=== PATIENT | male | born 1960 | race Caucasian/White ===

== ENCOUNTER → 2017-04-23 | Outpatient (CLI) | payer MEDICARE, SELFPAY | PROVIDERS: Visit Provider Nurse Practitioner Family | DX: R50.9 Fever, unspecified (principal); R53.82 Chronic fatigue, unspecified; E11.9 Type 2 diabetes mellitus without complications; Z12.5 Encounter for screening for malignant neoplasm of prostate; R05 Cough | CPT/HCPCS: 36415; 80053; 81001; 82607; 84443; 85025; 87086; 87486; 87581; 87633; 87798; G0103 ==

== ENCOUNTER 2017-06-20 13:47 | Emergency (ER) | payer MEDICARE, SELFPAY ==
[2017-06-20 14:07] VITALS: BP 117/67; PULSE 67; RESP 18; TEMP 36.3; O2SAT 98; BMI 33.9
--- NOTE | 2017-06-20 14:25 | XR_ITS ---
XR knee RT 4V HISTORY: Posttraumatic pain, prior total knee replacement ITS.REASON: hx knee replacement, twisted yesterday, pain since ORDERING PHYSICIAN: Mallory York PATIENT AGE: 56 years FINDINGS: No previous exams are available at this institution. There is a total knee prosthesis present which is in good alignment. No acute fracture or dislocation is evident. There is increased density in the suprapatellar region consistent with knee joint effusion. IMPRESSION: Prior total knee replacement with knee joint effusion, no acute finding
--- NOTE | 2017-06-20 14:26 | HMH.EDUTC ---
[facility] [place] Impression: History of knee replacement procedure of right knee Right knee sprain Qualifiers: Encounter type: initial encounter Involved ligament of knee: unspecified ligament Qualified Code(s): S83.91XA - Sprain of unspecified site of right knee, initial encounter Abdominal pain Qualifiers: Abdominal location: epigastric Qualified Code(s): R10.13 - Epigastric pain Disposition: Home, Self-Care Condition on Discharge: Good Instructions: DI for Knee Sprain, How To Perform RICE (Rest, Ice, Compress, Elevate), How to Use a Knee Immobilizer Additional Instructions: * Your abdominal pain is concerning to me as we discussed. Remember the risks associated with the different possible causes. I encourage you to seek treatment for this pain as not getting further evaluation is against my medical advice. * weight bearing as tolerated but if painful, stay off it and use crutches * Rest * ice 15-20 mins 3-4 times a day * knee immobilizer for support and swelling unless in shower. Be sure not too tight but not too loose either * Elevate as discussed as much as possible to help reduce swelling and therefore, pain * naproxen every 12 hours as needed for pain and inflammation. If you need something more, you can take tylenol/lortab * No additional anti-inflammatories like motrin, aleve, advil with the above amount of ibuprofen. You CAN still take Tylenol every 4 hours as needed if you need something more for pain. Prescriptions: Naproxen 375 mg PO BID #28 tab Referrals: Josh Workman MD [Staff Physician] - (Immediately for new or worsening symptoms. Call Dr. Workman today. report hx of right knee replacement. Injured yesterday. Seen in [facility]. joint effusion and pain. Need follow up appointment.) Time of Disposition: 15:50 Medical Decision Making Vital Signs: 06/20/17 14:07 Temperature 97.4 F L Temperature Source Temporal Artery Scan Pulse Rate [Right Radial] 67 Respiratory Rate 18 Blood Pressure [Right Arm] 117/67 Blood Pressure Mean [Right Arm] 83 02 Sat by Pulse Oximetry 98 Oxygen Delivery Method Room Air - Radiology Data #1 Image(s): Knee Image Reviewed: Yes I have reviewed radiologist's interpretation prothesis in good alignment. prior total knee replacement with knee jiont effusion, no acute finding - Physician Consults Physician Consulted: MAXI Hansen Time: 15:45 Reason -: Pt condition Comment/Response: Discussed PMHx, HPI w/ knee, exam, xray. Suggest RICE, anti-inflammatories and follow up with ortho. Nothing further. - Porter Inquiry Pt receiving controlled substance: No - Reevaluation(s) Time: 14:25 Reevaluation #1: Discussed possible differentials w/ abdominal pain and need for abdominal pain evaluation in ER. Pt refusing abdominal pain workup other then exam. Aware exam alone is not sufficient. Pt wants to forget about it . Wants to focus on his right knee and not have any further workup of abdomen. I will just watch it and see what happens over the next few days . Discussed risks associated w/ differentials. Pt states he understands and will take my chances but still does not want workup/evaluation. [facility] [place] General Stated complaint: damaged artificial knee hermia mesh Time Seen by Provider: 06/20/17 14:15 Mode of Arrival: Family Vehicle Source of Information: Patient Limitations: No Limitations Description of Symptoms (Recalled from Triage Doc. by RN): PT STATES HE WAS LIFTING A TABLE LAST NIGHT AND TWISTED HIS RIGHT KNEE AND FELT A PULL WHERE HIS ABDOMINAL HERNIA MESH IS. HEENT Symptoms (Recalled from RN notes): No Resp Symptoms (Recalled from RN notes): No Skin Symptoms (Recalled from RN notes): No MS Symptoms (Recalled from RN notes): Yes (TWISTED RIGHT KNEE) Functional Status (Recalled from RN notes): NA - History of Present Illness Provider Complaint: c/o abdominal pain and right knee pain. Both started yesterday while lifting a table in his shop. Abdominal p
--- NOTE | 2017-06-20 14:32 | ED_ITS ---
[facility] [place] Clinical Impression: History of knee replacement procedure of right knee Right knee sprain Qualifiers: Encounter type: initial encounter Involved ligament of knee: unspecified ligament Qualified Code(s): S83.91XA - Sprain of unspecified site of right knee , initial encounter Abdominal pain Qualifiers: Abdominal location: epigastric Qualified Code(s): R10.13 - Epigastric pain Disposition: Home, Self-Care Condition on Discharge: Good Instructions: DI for Knee Sprain, How To Perform RICE (Rest, Ice, Compress, Elevate), How to Use a Knee Immobilizer Additional Instructions: * Your abdominal pain is concerning to me as we discussed. Remember the risks associated with the different possible causes. I encourage you to seek treatment for this pain as not getting further evaluation is against my medical advice. * weight bearing as tolerated but if painful, stay off it and use crutches * Rest * ice 15-20 mins 3-4 times a day * knee immobilizer for support and swelling unless in shower. Be sure not too tight but not too loose either * Elevate as discussed as much as possible to help reduce swelling and therefore , pain * naproxen every 12 hours as needed for pain and inflammation. If you need something more, you can take tylenol/lortab * No additional anti-inflammatories like motrin, aleve, advil with the above amount of ibuprofen. You CAN still take Tylenol every 4 hours as needed if you need something more for pain. Prescriptions: Naproxen 375 mg PO BID #28 tab Referrals: Josh Workman MD [Staff Physician] - (Immediately for new or worsening symptoms. Call Dr. Workman today. report hx of right knee replacement. Injured yesterday. Seen in [facility]. joint effusion and pain. Need follow up appointment.) Time of Disposition: 15:50 Medical Decision Making Vital Signs: 06/20/17 14:07 Temperature 97.4 F L Temperature Source Temporal Artery Scan Pulse Rate [Right Radial] 67 Respiratory Rate 18 Blood Pressure [Right Arm] 117/67 Blood Pressure Mean [Right Arm] 83 02 Sat by Pulse Oximetry 98 Oxygen Delivery Method Room Air - Radiology Data #1 Image(s): Knee Image Reviewed: Yes I have reviewed radiologist's interpretation prothesis in good alignment. prior total knee replacement with knee jiont effusion, no acute finding - Physician Consults Physician Consulted: MAXI Hansen Time: 15:45 Reason -: Pt condition Comment/Response: Discussed PMHx, HPI w/ knee, exam, xray. Suggest RICE, anti- inflammatories and follow up with ortho. Nothing further. - Porter Inquiry Pt receiving controlled substance: No - Reevaluation(s) Time: 14:25 Reevaluation #1: Discussed possible differentials w/ abdominal pain and need for abdominal pain evaluation in ER. Pt refusing abdominal pain workup other then exam. Aware exam alone is not sufficient. Pt wants to forget about it . Wants to focus on his right knee and not have any further workup of abdomen. I will just watch it and see what happens over the next few days . Discussed risks associated w/ differentials. Pt states he understands and will take my chances but still does not want workup/evaluation. [facility] [place] HPI - General Stated complaint: damaged artificial knee hermia mesh Time Seen by Provider: 06/20/17 14:15 Mode of Arrival: Family Vehicle Source of Information: Patient Limitations: No Limitations Description of Symptoms (Recalled from Triage Doc. by RN): PT STATES HE WAS LIFTING A TABLE LAST NIGHT AND TWISTED H
[2017-06-20 16:00] VITALS: BP 120/60; PULSE 65; RESP 18; TEMP 36.6; O2SAT 98
== END 2017-06-20 16:02 | disposition home or self-care (01) ==
PROVIDERS: Emergency Provider Nurse Practitioner Family
DX: S83.91XA Sprain of unspecified site of right knee, initial encounter (principal); Z96.651 Presence of right artificial knee joint; I10 Essential (primary) hypertension; E11.9 Type 2 diabetes mellitus without complications; R10.13 Epigastric pain; X50.1XXA Overexertion from prolonged static or awkward postures, initial encounter; Y92.009 Unspecified place in unspecified non-institutional (private) residence as the place of occurrence of the external cause
CPT/HCPCS: G0463; 73564; 99202

== ENCOUNTER → 2017-11-19 16:22 | Outpatient (CLI) | payer MEDICARE, SELFPAY ==
--- NOTE | 2017-11-19 16:28 | XR_ITS ---
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 The humeral head rides somewhat high in the glenoid and is a lateral downsloping acromion process both findings suggesting predisposition to impingement syndrome. There are no soft tissue calcifications. IMPRESSION: Possible impingement syndrome, no other significant abdomen I noted
--- NOTE | 2017-11-19 16:28 | XR_ITS ---
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 No lytic or blastic change. There is normal mineralization.. The joint spaces are well-preserved. There is deformity of the proximal phalanx of little finger secondary to old healed fracture. There is minor osteoarthritic changes of the DIP joints of the index finger and middle finger. There are no foreign bodies. IMPRESSION: Negative, no acute finding
--- NOTE | 2017-11-19 16:28 | XR_ITS ---
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 Humeral head rides somewhat high in the glenoid and is a lateral downsloping acromion process and these 2 findings could predispose to impingement syndrome. There are no soft tissue calcifications. IMPRESSION: Findings suggesting a predisposition to impingement syndrome
--- NOTE | 2017-11-19 16:28 | XR_ITS ---
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 No lytic or blastic change. There is normal mineralization.. The joint spaces are well-preserved. Minimal osteophytic spurring is seen in the PIP joint of the little finger. There is metallic foreign body adjacent to the proximal phalanx of the index finger. IMPRESSION: Negative, no acute finding
--- NOTE | 2017-11-19 16:28 | XR_ITS ---
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 C1-C6 are visualized on lateral projection however C7 appears normal on the oblique views. Oblique films show no significant neural foraminal narrowing on either side. The prevertebral soft tissues are normal and the odontoid is normal. IMPRESSION: No acute finding and no significant degenerative change
--- NOTE | 2017-11-19 16:28 | XR_ITS ---
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 No fracture nor dislocation. Normal carpal relationships. Joint spaces maintained Minimal Subchondral cystic area at tip of radial styloid notedl 4.5 mm The soft tissues about the wrist appear normal The marked deformity proximal phalanx fifth finger from old fracture again noted as discussed on previous right hand study. IMPRESSION: Right wrist intact no fracture nor dislocation. Minor observations about ======== LEFT WRIST 3 view Left wrist intact with normal carpal relationships. Bones well mineralized. No prominent erosive changes. Joint spaces are fairly well-maintained With Detailed review I would I would note that there is slight narrowing sclerosis at the capitate- lunate joint. Possibly some borderline narrowing at the lunate-scaphoid joint. With this Note 2 very tiny subchondral cystic features at the proximal pole of the navicular on the frontal projection. There is upper normal density at the proximal pole the navicular, minor sclerosis which may be related to early degenerative changes as I see no evidence of old navicular fracture on these images. The distal radius and ulna unremarkable intact. Fat planes about the wrist intact. Only scant if any degenerative changes at first carpal metacarpal joint questioned IMPRESSION left wrist, intact. No acute findings Mild degenerative changes left wrist Suggestion of slight narrowing and sclerosis at capitate and lunate articulation. Borderline/slight narrowing at the scaphoid-lunate articulation mild sclerosis and tubes tiny subchondral cyst at proximal pole of the kidney may be associated with these are early changes.,-As I see no definitive evidence prior navicular fracture. Clinical correlation required
== END ==
PROVIDERS: PCP Family Medicine; Visit Provider Nurse Practitioner Family
DX: M25.511 Pain in right shoulder (principal); M25.512 Pain in left shoulder; M25.532 Pain in left wrist; M25.531 Pain in right wrist; M79.642 Pain in left hand; M79.641 Pain in right hand
CPT/HCPCS: 72050; 73030; 73110; 73130

== ENCOUNTER 2019-11-04 15:54 | Emergency (ER) | payer MEDICARE, SELFPAY ==
--- NOTE | 2019-11-04 16:25 | XR_ITS ---
PROCEDURE: XR WRIST RT MIN 3V CLINICAL INDICATION: INJURY Pain COMPARISON: WRISTCMLT XR wrist LT min 3V from 11/19/2017 WRISTCMRT XR wrist RT min 3V from 11/19/2017 FINDINGS: There is a small subchondral cyst at the radial styloid process measuring 4 mm. No fracture or dislocation. No significant degenerative change. IMPRESSION: No acute findings. Dictated by: Samuel Ríos MD 11/04/2019 16:54 Electronically signed by Samuel Ríos MD in [place] 11/04/2019 16:54
--- NOTE | 2019-11-04 16:25 | XR_ITS ---
PROCEDURE: XR WRIST LT MIN 3V CLINICAL INDICATION: INJURY Posttraumatic pain COMPARISON: WRISTCMLT XR wrist LT min 3V from 11/19/2017 WRISTCMRT XR wrist RT min 3V from 11/19/2017 XR WRIST RT MIN 3V from 11/04/2019 FINDINGS: No fracture or dislocation. There is faint calcification at the mid and dorsal aspect of the wrist nonspecific. IMPRESSION: No acute findings. Dictated by: Samuel Ríos MD 11/04/2019 16:53 Electronically signed by Samuel Ríos MD in [place] 11/04/2019 16:53
--- NOTE | 2019-11-04 16:25 | XR_ITS ---
PROCEDURE: XR SHOULDER LT MIN 2V CLINICAL INDICATION: INJURY Posttraumatic pain COMPARISON: SHOU3R [id number] VIEWS from 02/13/2014 SHOULDCMLT XR shoulder LT min 2V from 11/19/2017 SHOULDCMRT XR shoulder RT min 2V from 11/19/2017 FINDINGS: There are mild osteoarthritic changes of the acromioclavicular joint. The joint has an unremarkable appearance. No acute fracture or dislocation. IMPRESSION: Mild osteoarthritis of AC joint otherwise negative. Dictated by: Samuel Ríos MD 11/04/2019 16:47 Electronically signed by Samuel Ríos MD in [place] 11/04/2019 16:47
[2019-11-04 16:27] VITALS: BP 138/78; PULSE 74; RESP 16; TEMP 36.8; O2SAT 98; BMI 32.3
--- NOTE | 2019-11-04 16:43 | HMH.EDUTC ---
[facility] [place] Clinical Impression: Bilateral wrist pain Left shoulder pain Qualifiers: Chronicity: unspecified Qualified Code(s): M25.512 - Pain in left shoulder Disposition: Home, Self-Care Condition on Discharge: Good Instructions: DI for Shoulder Pain, DI for Wrist Pain Additional Instructions: Rest the extremity, Elevate the extremity as tolerated while you are resting. Take ibuprofen for pain. Follow up with Dr. Kevin. I put in a referral but you need to call her office and schedule an appointment. Follow up with your regular doctor. GO TO THE ER FOR ANY WORSENING SYMPTOMS Prescriptions: Ibuprofen [Ibuprofen 600mg Tablet] 600 mg PO Q6HP PRN #30 tab PRN Reason: Mild Pain Transmission Status: Received by [id number] Referrals: Richi Damon [Primary Care Provider] - Azucena Kevin MD [Physician] - Time of Disposition: 17:14 Medical Decision Making - Medical Records Medical records reviewed: No: I reviewed the patient's medical records. - Porter Inquiry Pt receiving controlled substance: No Vital Signs: 11/04/19 16:27 11/04/19 17:22 Temperature 98.3 F 98.2 F Temperature Source Oral Oral Pulse Rate 70 Pulse Rate [Right Brachial] 74 Respiratory Rate 16 16 Blood Pressure 140/70 Blood Pressure [Right Arm] 138/78 Blood Pressure Mean [Right Arm] 98 Blood Pressure Source Automatic Cuff Blood Pressure Source [Right Arm] Automatic Cuff Blood Pressure Position Sitting Blood Pressure Position [Right Arm] Sitting 02 Sat by Pulse Oximetry 98 Oxygen Delivery Method Room Air Room Air - Radiology Data #1 Image(s): Wrist Image Reviewed: Yes I reviewed the patient's radiology image, Yes I have reviewed radiologist's interpretation Preliminary Findings: No Fracture Seen PROCEDURE: XR WRIST RT MIN 3V CLINICAL INDICATION: INJURY Pain COMPARISON: WRISTCMLT XR wrist LT min 3V from 11/19/2017 WRISTCMRT XR wrist RT min 3V from 11/19/2017 FINDINGS: There is a small subchondral cyst at the radial styloid process measuring 4 mm. No fracture or dislocation. No significant degenerative change. IMPRESSION: No acute findings. Dictated by: Samuel Ríos MD 11/04/2019 16:54 Electronically signed by Samuel Ríos MD in [place] 11/04/2019 16:54 #2 Image(s): Shoulder Image Reviewed: Yes I reviewed the patient's radiology image, Yes I have reviewed radiologist's interpretation Preliminary Findings: No Fracture Seen PROCEDURE: XR SHOULDER LT MIN 2V CLINICAL INDICATION: INJURY Posttraumatic pain COMPARISON: SHOU3R [id number] VIEWS from 02/13/2014 SHOULDCMLT XR shoulder LT min 2V from 11/19/2017 SHOULDCMRT XR shoulder RT min 2V from 11/19/2017 FINDINGS: There are mild osteoarthritic changes of the acromioclavicular joint. The joint has an unremarkable appearance. No acute fracture or dislocation. IMPRESSION: Mild osteoarthritis of AC joint otherwise negative. Dictated by: Samuel Ríos MD 11/04/2019 16:47 Electronically signed by Samuel Ríos MD in [place] 11/04/2019 16:47 #3 Image(s): Wrist Image Reviewed: Yes I reviewed the patient's radiology image, Yes I have reviewed radiologist's interpretation Preliminary Findings: No Fracture Seen PROCEDURE: XR WRIST RT MIN 3V CLINICAL INDICATION: INJURY Pain COMPARISON: WRISTCMLT XR wrist LT min 3V from 11/19/2017 WRISTCMRT XR wrist RT min 3V from 11/19/2017 FINDINGS: There is a small subchondral cyst at the radial styloid process measuring 4 mm. No fracture or dislocation. No significant degenerative change. IMPRESSION: No acute findings. Dictated by: Samuel Ríos MD 11/04/2019 16:54 Electronically signed by Samuel Ríos MD in [place] 11/04/2019 16:54 [facility] [place] HPI - General Stated complaint: AO in july injured Both wrist,L shoulder Time Seen by Provider: 11/04/19 16:43 Mode of Arrival: Ambulatory Source of Information: Patient Limit
[2019-11-04 17:22] VITALS: BP 140/70; PULSE 70; RESP 16; TEMP 36.8; O2SAT 98
== END 2019-11-04 17:23 | disposition home or self-care (01) ==
PROVIDERS: Emergency Provider Nurse Practitioner Family; PCP Family Medicine
DX: M25.531 Pain in right wrist (principal); M25.532 Pain in left wrist; M25.512 Pain in left shoulder; E11.9 Type 2 diabetes mellitus without complications; I10 Essential (primary) hypertension; K21.9 Gastro-esophageal reflux disease without esophagitis; E03.9 Hypothyroidism, unspecified; Z79.899 Other long term (current) drug therapy
CPT/HCPCS: G0463; 73030; 73110; 99201

== ENCOUNTER → 2019-11-24 07:29 | Outpatient (CLI) | payer MEDICARE, SELFPAY ==
[2019-11-24 09:11] LABS: Alanine Aminotransferase 17 U/L (12-78); Albumin/Globulin Ratio 1.8 (1.1-1.8); Alkaline Phosphatase 77 U/L (38-126); Anion Gap 17.3 mEq/L (5-15); Aspartate Amino Transferase 17 U/L (17-59); Bilirubin,Total 0.6 mg/dl (0.2-1.3); Blood Urea Nitrogen 15 mg/dl (9-20); Calcium 9.8 mg/dl (8.4-10.2); Carbon Dioxide 29 mmol/L (22.0-30.0); Chloride 95 mmol/L (98-107); Chol/HDL Ratio 5.1 (1-3.5); Cholesterol 180 mg/dl (140-200); Estimated Glomerular Filt Rate 69 ml/min (>60); GFR (African American) 83 ML/MIN (>60); Globulin 2.2 g/dL (1.3-3.2); Glucose 324 mg/dl (74-100); HDL Cholesterol 35 mg/dl (40-60); Potassium 4.3 mmoL/L (3.5-5.1); Sodium 137 mmol/L (136-145); Total Protein,Serum 6.2 g/dl (6.3-8.2); Triglycerides 258 mg/dl (30-150); VLDL Cholesterol 52 mg/dL (0-40)
[2019-11-24 09:22] LABS: Direct LDL Cholesterol 96.84 mg/dL (100-129)
[2019-11-24 09:29] LABS: T4 (Thyroxine) 11.8 ug/dl (5.53-11.0); Triiodothryronine (T3) Uptake 34 % (23.5-40.5)
[2019-11-24 09:37] LABS: Hemoglobin A1C > 14.0 % (4.0-6.0)
[2019-11-24 09:42] LABS: Prostate Specific Ag Screen 0.2 ng/ml (0.0-4.0)
[2019-11-24 09:43] LABS: Thyroid Stimulating Hormone 0.99 uIU/mL (0.465-4.68)
== END ==
PROVIDERS: Visit Provider Family Medicine
DX: I25.10 Atherosclerotic heart disease of native coronary artery without angina pectoris (principal); R41.3 Other amnesia; R35.1 Nocturia; E11.9 Type 2 diabetes mellitus without complications; Z79.4 Long term (current) use of insulin; Z12.5 Encounter for screening for malignant neoplasm of prostate
CPT/HCPCS: 36415; 80053; 80061; 83036; 84436; 84443; 84479; G0103

== ENCOUNTER → 2019-12-01 07:54 | Outpatient (CLI) | payer MEDICARE, SELFPAY ==
--- NOTE | 2019-12-01 07:54 | MR_ITS ---
PROCEDURE: MR HEAD/BRAIN WO CON CLINICAL INDICATION: memory loss Memory loss, headache, dizziness, and blurred vision x3-4months. No prior. COMPARISON: No exams were available for comparison TECHNIQUE: Routine multiplanar multi echo sequences are performed without gadolinium enhancement. FINDINGS: No midline shift, mass effect, intracranial hemorrhage, or hydrocephalus is evident. Diffusion images show no evidence of acute infarction. There is mild generalized atrophy with scattered periventricular and subcortical T2 white matter hyperintensities consistent with ischemic gliotic change from small vessel disease. There is a cystic area of encephalomalacia in the right putamen anteriorly measuring 11 x 6 mm consistent with an old lacunar infarction. The cerebellopontine angle, cerebellum, and brainstem have an unremarkable appearance. Minimal mucosal thickening involves the maxillary and ethmoid sinuses. The pituitary, optic chiasm, corpus callosum, and craniocervical junction have an unremarkable appearance. There is a small amount of fluid within the right mastoid sinus. IMPRESSION: 1. No acute intracranial findings. 2. 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
--- NOTE | 2019-12-01 08:02 | XR_ITS ---
PROCEDURE: XR ORBIT BILATERAL MIN 4V CLINICAL INDICATION: RULE OUT METAL FOREIGN BODY FOR MRI COMPARISON: No exams were available for comparison TECHNIQUE: AP views are obtained of the orbits with the patient looking up and down. FINDINGS: No radio opaque foreign bodies evident. IMPRESSION: No radio opaque orbital foreign body identified. Dictated b Samuel Ríos MD 12/01/2019 16:01 Samuel Ríos MD in [place] 12/01/2019 16:01
== END ==
PROVIDERS: PCP Family Medicine; Visit Provider Specialist
DX: G93.40 Encephalopathy, unspecified (principal); R41.3 Other amnesia; H05.53 Retained (old) foreign body following penetrating wound of bilateral orbits
CPT/HCPCS: 70200; 70551

== ENCOUNTER 2020-12-13 20:02 | Emergency (ER) | payer MEDICARE, SELFPAY ==
[2020-12-13 20:04] VITALS: BP 127/82; PULSE 105; RESP 18; TEMP 37.1; O2SAT 97; BMI 30.2
[2020-12-13 20:30] VITALS: BP 127/82; PULSE 96; O2SAT 97
--- NOTE | 2020-12-13 20:51 | XR_ITS ---
PROCEDURE INFORMATION: Exam: XR Chest Exam date and time: 12/13/2020 8:51 PM Age: 60 years old Clinical indication: Cough TECHNIQUE: Imaging protocol: XR of the chest. Views: 2 views. COMPARISON: CR XR SHOULDER LT MIN 2V 11/04/2019 4:30 PM FINDINGS: Lungs: No consolidation. Pleural spaces: Unremarkable. No pleural effusion. No pneumothorax. Heart/Mediastinum: Unremarkable. No cardiomegaly. 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 Bones/joints: Degenerative changes of the shoulders. IMPRESSION: Chronic changes without acute process.
[2020-12-13 20:55] VITALS: BP 133/75; PULSE 95; O2SAT 97
--- NOTE | 2020-12-13 20:57 | ECG_ITS ---
APPROVED REPORT Exam: Resting ECG HR:97 bpm ECG Measurements Heart Rate 97 AXES ME 142 P 61 QRSd 80 QRS 94 QT 360 T 103 QTc 457 Conclusion Normal sinus rhythm Rightward axis Borderline ECG Electronically signed by : Dony Bateman MD 12/14/2020 11:44:22
[2020-12-13 21:00] VITALS: BP 111/76; PULSE 92; O2SAT 95
[2020-12-13 21:01] LABS: Influenza A, PCR Not Detected (NotDetected); Influenza B, PCR Not Detected (NotDetected)
[2020-12-13 21:09] LABS: Alanine Aminotransferase 21 U/L (12-78); Albumin/Globulin Ratio 1.6 (1.1-1.8); Alkaline Phosphatase 62 U/L (38-126); Anion Gap 12.7 mEq/L (5-15); Aspartate Amino Transferase 26 U/L (17-59); Bilirubin,Total 0.7 mg/dl (0.2-1.3); Blood Urea Nitrogen 14 mg/dl (9-20); Calcium 8.5 mg/dl (8.4-10.2); Carbon Dioxide 28 mmol/L (22.0-30.0); Chloride 95 mmol/L (98-107); Creatinine Clearance Estimated 86 mL/min (50-200); Estimated Glomerular Filt Rate 68 ml/min (>60); GFR (African American) 83 ML/MIN (>60); Globulin 2.5 g/dL (1.3-3.2); Glucose 349 mg/dl (74-100); Potassium 3.7 mmoL/L (3.5-5.1); Sodium 132 mmol/L (136-145); Total Protein,Serum 6.5 g/dl (6.3-8.2)
[2020-12-13 21:12] LABS: Basophils % 0.8 % (0.1-2.0); Eosinophils % 0.6 % (0.1-12.0); Hemoglobin 14.7 g/dL (14.1-18.0); Lymphocytes # 0.8 K/mm3 (0.7-4.5); Lymphocytes % 23.7 % (10-50); Mean Corpuscular HGB Conc 35.1 g/dL (31.8-35.4); Mean Corpuscular Hemoglobin 27.6 pg (27.0-31.2); Mean Corpuscular Volume 78.8 fl (80-94); Mean Platelet Volume 8.4 fl (7.4-10.4); Monocytes # 0.2 K/mm3 (0.1-1.0); Monocytes % 5.5 % (1.7-9.3); Neutrophils # 2.4 K/mm3 (1.8-7.8); Neutrophils % 69.4 % (37.0-80.0); Platelet Count 132 K/mm3 (142-424); Red Blood Count 5.33 M/mm3 (4.60-6.20); Red Cell Distribution Width 13.4 % (11.5-17.5); White Blood Count 3.4 K/mm3 (4.8-10.8)
[2020-12-13 21:14] LABS: C-Reactive Protein 24.2 mg/L (0-4)
[2020-12-13 21:27] LABS: Troponin I < 0.01 ng/ml (0.00-0.034)
[2020-12-13 21:29] LABS: Procalcitonin 0.066 ng/mL (0.0-2.0)
[2020-12-13 21:42] LABS: Coronavirus 19, PCR Detected (NotDetected)
--- NOTE | 2020-12-13 21:53 | HMH.EDWEAK ---
ED Disposition Clinical Impression: COVID-19 Disposition: Home, Self-Care Condition on Discharge: Good Instructions: DI for COVID-19 (Suspected or Confirmed ), Preventing the Spread of Coronavirus Discharge Instructions Additional Instructions: call pcp in am and fluids Referrals: Yuriy Damon MD [Primary Care Provider] - - Critical Care Critical Care Time: No Attestation: On 12/13/20, the high probability of a clinically significant, sudden or life threatening deterioration of the following system(s) required my full and direct attention, intervention and personal management. The time I documented below is in addition to time spent performing reported procedures but includes the following listed in this critical care notation. Medical Decision Making - Medical Records Medical records reviewed: Yes: I reviewed the patient's medical records. - Porter Inquiry Pt receiving controlled substance: No Vital Signs: 12/13/20 20:04 12/13/20 20:30 12/13/20 20:55 Temperature 98.8 F Temperature Source Oral Pulse Rate 96 H 95 H Pulse Rate [Right] 105 H Respiratory Rate 18 Blood Pressure 127/82 133/75 Blood Pressure [Right Arm] 127/82 Blood Pressure Mean 96 91 Blood Pressure Mean [Right Arm] 97 02 Sat by Pulse Oximetry 97 97 97 12/13/20 21:00 Temperature Temperature Source Pulse Rate 92 H Pulse Rate [Right] Respiratory Rate Blood Pressure 111/76 Blood Pressure [Right Arm] Blood Pressure Mean 86 Blood Pressure Mean [Right Arm] 02 Sat by Pulse Oximetry 95 - Lab Data Lab results reviewed: Yes: I reviewed the patient's lab results. Lab Results 12/13/20 20:45: SARS-CoV-2 (PCR) Detected A, Influenza A Untype (PCR) Not detected, Influenza Type B (PCR) Not detected 12/13/20 20:45: Procalcitonin 0.066 12/13/20 20:55: WBC 3.4 L, RBC 5.33, Hgb 14.7, Hct 42.0, MCV 78.8 L, MCH 27.6, MCHC 35.1, RDW 13.4, Plt Count 132 L, MPV 8.4, Neut % (Auto) 69.4, Lymph % (Auto) 23.7, [place] % (Auto) 5.5, Eos % (Auto) 0.6, Baso % (Auto) 0.8, Neut # (Auto) 2.4, Lymph # (Auto) 0.8, [place] # (Auto) 0.2, Eos # (Auto) 0.0, Baso # (Auto) 0.0, ESR 55 H 12/13/20 20:55: Sodium 132 L, Potassium 3.7, Chloride 95 L, Carbon Dioxide 28, Anion Gap 12.7, BUN 14, Creatinine 1.10, Estimated Creat Clear 86, Estimated GFR 68, Est GFR ( Amer) 83, Glucose 349 H, Calcium 8.5, Total Bilirubin 0.7, AST 26, ALT 21, Alkaline Phosphatase 62, Troponin I < 0.01, C-Reactive Protein 24.2 H, Total Protein 6.5, Albumin 4.0, Globulin 2.5, Albumin/Globulin Ratio 1.6 Result diagrams: 12/13/20 20:55 12/13/20 20:55 Orders (Tests/Meds): ED MEDICATIONS Generic Name Dose Route Start Last Admin Trade Name Freq PRN Reason Stop Dose Admin Sodium Chloride 1,000 mls @ 999 mls/hr 12/13/20 21:00 12/13/20 20:59 Sod Chlor 0.9% 1000ml Bag IV 12/13/20 22:00 999 mls/hr .Q1H1M AGUSTIN Administration Discontinued Medications Generic Name Dose Route Start Last Admin Trade Name Freq PRN Reason Stop Dose Admin Ondansetron HCl 4 mg 12/13/20 20:53 12/13/20 20:59 Ondansetron 4mg/2ml Vial IV 12/13/20 20:54 4 mg ONCE ONE Administration ORDERS Category Date Time Status Troponin I Q3H Lab 12/13/20 23:52 Ordered Troponin I Q3H Lab 12/14/20 02:52 Ordered - Radiology Data #1 Image(s): Chest Image Reviewed: Yes I reviewed the patient's radiology image Preliminary Findings: Normal/NAD - ECG Data Tracing #1 Normal Sinus Rhythm: Yes Ischemic changes: non-specific ST-T wave changes Medical Decision Narrative: has covid-19 and was asked to call pcp in am Weakness HPI - General Chief complaint: Weakness Stated complaint: fever,sleeping alot,not eating Time Seen by Provider: 12/13/20 21:53 Mode of Arrival: Ambulatory Source of Information: Patient, Medical Record Limitations: No Limitations Description of Symptoms (Recalled from ER Triage Doc. by RN): pt c/o coughing,n/v/d,fever,chills,body aches since
[2020-12-13 21:54] LABS: Erythrocyte Sedimentation Rate 55 mm/hr (0-20)
[2020-12-13 22:34] VITALS: BP 111/76; PULSE 92; RESP 18; TEMP 37.1; O2SAT 95
== END 2020-12-13 22:36 | disposition home or self-care (01) ==
PROVIDERS: Emergency Provider Emergency Medicine; PCP Family Medicine
DX: U07.1 COVID-19 (principal); E11.9 Type 2 diabetes mellitus without complications; I10 Essential (primary) hypertension; K21.9 Gastro-esophageal reflux disease without esophagitis; E03.9 Hypothyroidism, unspecified; Z79.899 Other long term (current) drug therapy
CPT/HCPCS: 71046; 80053; 84145; 84484; 85025; 85651; 86140; 93005; 96365; 96375; 99283; J2405; U0003

== ENCOUNTER → 2021-12-04 06:43 | Outpatient (CLI) | payer MEDICARE, SELFPAY ==
[2021-12-04 18:03] LABS: Basophils # 0.1 K/mm3 (0-0.2); Basophils % 1.3 % (0.1-2.0); Eosinophils # 0.1 K/mm3 (0.0-0.4); Eosinophils % 1.5 % (0.1-12.0); Hematocrit 51.8 % (42.0-52.0); Hemoglobin 16.7 g/dL (14.1-18.0); Lymphocytes % 23.2 % (10-50); Mean Corpuscular HGB Conc 32.2 g/dL (31.8-35.4); Mean Corpuscular Hemoglobin 28.1 pg (27.0-31.2); Mean Corpuscular Volume 87.2 fl (80-94); Mean Platelet Volume 9.2 fl (7.4-10.4); Monocytes # 0.5 K/mm3 (0.1-1.0); Monocytes % 5.2 % (1.7-9.3); Neutrophils # 5.9 K/mm3 (1.8-7.8); Neutrophils % 68.7 % (37.0-80.0); Platelet Count 314 K/mm3 (142-424); Red Blood Count 5.95 M/mm3 (4.60-6.20); Red Cell Distribution Width 13.4 % (11.5-17.5); White Blood Count 8.6 K/mm3 (4.8-10.8)
[2021-12-04 18:14] LABS: Alanine Aminotransferase 21 U/L (12-78); Albumin Level 4.3 g/dl (3.5-5.0); Albumin/Globulin Ratio 1.7 (1.1-1.8); Alkaline Phosphatase 91 U/L (38-126); Aspartate Amino Transferase 19 U/L (17-59); Bilirubin,Total 0.9 mg/dl (0.2-1.3); Blood Urea Nitrogen 12 mg/dl (9-20); Calcium 10.2 mg/dl (8.4-10.2); Carbon Dioxide 25 mmol/L (22.0-30.0); Chloride 100 mmol/L (98-107); Chol/HDL Ratio 7.3 (1-3.5); Cholesterol 276 mg/dl (140-200); Estimated Glomerular Filt Rate 76 ml/min (>60); GFR (African American) 92 ML/MIN (>60); Globulin 2.5 g/dL (1.3-3.2); HDL Cholesterol 38 mg/dl (40-60); Sodium 134 mmol/L (136-145); Total Protein,Serum 6.8 g/dl (6.3-8.2); Triglycerides 274 mg/dl (30-150); VLDL Cholesterol 55 mg/dL (0-40)
[2021-12-04 18:45] LABS: Thyroid Stimulating Hormone 5.58 uIU/mL (0.465-4.68)
[2021-12-04 23:29] LABS: Hemoglobin A1C > 14.0 % (4.0-6.0)
[2021-12-05 08:30] LABS: Glucose 457 mg/dl (74-100)
[2021-12-06 22:16] LABS: Direct LDL Cholesterol 201 mg/dL (100-129)
== END ==
PROVIDERS: PCP Family Medicine; Visit Provider Family Medicine
DX: F32.A Depression, unspecified (principal); E11.9 Type 2 diabetes mellitus without complications; I10 Essential (primary) hypertension; Z79.84 Long term (current) use of oral hypoglycemic drugs
CPT/HCPCS: 80053; 80061; 83036; 84443; 85025

== ENCOUNTER → 2022-04-25 10:15 | Outpatient (CLI) | payer MEDICARE, SELFPAY ==
[2022-04-25 18:31] LABS: Alanine Aminotransferase 23 U/L (12-78); Albumin Level 4.1 g/dl (3.5-5.0); Alkaline Phosphatase 68 U/L (38-126); Anion Gap 15.3 mEq/L (5-15); Aspartate Amino Transferase 21 U/L (17-59); Bilirubin,Total 1.1 mg/dl (0.2-1.3); Blood Urea Nitrogen 22 mg/dl (9-20); Calcium 9.6 mg/dl (8.4-10.2); Carbon Dioxide 24 mmol/L (22.0-30.0); Chloride 94 mmol/L (98-107); Estimated Glomerular Filt Rate 68 ml/min (>60); GFR (African American) 82 ML/MIN (>60); Globulin 2.1 g/dL (1.3-3.2); Hemoglobin A1C 11.4 % (4.0-6.0); Potassium 4.3 mmoL/L (3.5-5.1); Sodium 129 mmol/L (136-145); Total Protein,Serum 6.2 g/dl (6.3-8.2)
[2022-04-25 18:39] LABS: Creatinine,Urine Random 108 mg/dL (Not Estab.)
[2022-04-25 18:45] LABS: Microalbumin/Creatinine Ratio 14.9
[2022-04-25 18:48] LABS: Free T4 (Free Thyroxine) 1.02 ng/dl (0.78-2.19)
[2022-04-25 18:49] LABS: 25-OH Vitamin D, Total 18.3 ng/mL (30-100)
[2022-04-25 19:02] LABS: Thyroid Stimulating Hormone 2.38 uIU/mL (0.465-4.68)
[2022-04-25 19:38] LABS: Glucose 611 mg/dl (74-100)
[2022-04-25 20:29] LABS: Basophils # 0.1 K/mm3 (0-0.2); Eosinophils # 0.1 K/mm3 (0.0-0.4); Hematocrit 47.1 % (42.0-52.0); Hemoglobin 15.5 g/dL (14.1-18.0); Lymphocytes # 2.1 K/mm3 (0.7-4.5); Lymphocytes % 26.1 % (10-50); Mean Corpuscular HGB Conc 32.9 g/dL (31.8-35.4); Mean Corpuscular Hemoglobin 28.7 pg (27.0-31.2); Mean Corpuscular Volume 87.1 fl (80-94); Mean Platelet Volume 9.3 fl (7.4-10.4); Monocytes # 0.4 K/mm3 (0.1-1.0); Monocytes % 4.7 % (1.7-9.3); Neutrophils # 5.5 K/mm3 (1.8-7.8); Neutrophils % 67.2 % (37.0-80.0); Platelet Count 276 K/mm3 (142-424); Red Blood Count 5.41 M/mm3 (4.60-6.20); Red Cell Distribution Width 13.9 % (11.5-17.5); White Blood Count 8.1 K/mm3 (4.8-10.8)
== END ==
PROVIDERS: PCP Family Medicine; Visit Provider Family Medicine
DX: E11.9 Type 2 diabetes mellitus without complications (principal); I10 Essential (primary) hypertension; R53.83 Other fatigue; E55.9 Vitamin D deficiency, unspecified; Z79.4 Long term (current) use of insulin
CPT/HCPCS: 80053; 82043; 82306; 82570; 83036; 84439; 84443; 85025

== ENCOUNTER → 2022-05-01 08:36 | Outpatient (CLI) | payer MEDICARE, SELFPAY ==
--- NOTE | 2022-05-01 08:36 | MR_ITS ---
FINAL REPORT TECHNIQUE: Multiplanar MR, without and with gadolinium enhancement CLINICAL HISTORY: R/O stroke, ams, dizziness 16ml prohance injected COMPARISON: 12/01/2019 FINDINGS: Diffusion sequences show no signal abnormality to indicate acute infarct. Redemonstrated is moderate periventricular chronic microvascular changes with a chronic lacunar infarct in the anterior right basal ganglia. No mass, hemorrhage or edema is seen. Ventricles are normal. Major vascular flow voids are intact. Following contrast administration, no mass or abnormal enhancement is seen. IMPRESSION: Periventricular chronic microvascular changes with a chronic lacunar infarct. Reviewed, Interpreted and Dictated by Lissette Guillen MD Transcribed by Kathy Ojeda Authenticated and [facility]
== END ==
PROVIDERS: PCP Family Medicine; Visit Provider Family Medicine
DX: R41.82 Altered mental status, unspecified (principal)
CPT/HCPCS: 70553; A9576

== ENCOUNTER → 2022-10-13 09:03 | Outpatient (CLI) | payer MEDICARE, SELFPAY ==
[2022-10-12 16:14] LABS: Blood Urea Nitrogen 12 mg/dl (9-20); Calcium 9.1 mg/dl (8.4-10.2); Carbon Dioxide 27 mmol/L (22.0-30.0); Chloride 99 mmol/L (98-107); Estimated Glomerular Filt Rate 86 ml/min (>60); GFR (African American) 103 ML/MIN (>60); Glucose 270 mg/dl (74-100); Sodium 136 mmol/L (136-145)
[2022-10-12 16:21] LABS: Hemoglobin A1C 11.3 % (4.0-6.0)
[2022-10-12 16:24] LABS: Creatinine,Urine Random 169 mg/dL (Not Estab.)
[2022-10-12 16:31] LABS: Microalbumin/Creatinine Ratio 9.8
== END ==
PROVIDERS: PCP Family Medicine; Visit Provider Family Medicine
DX: E11.9 Type 2 diabetes mellitus without complications (principal); Z79.4 Long term (current) use of insulin
CPT/HCPCS: 80048; 82043; 82570; 83036

== ENCOUNTER → 2022-11-29 08:26 | Outpatient (POV) | payer MEDICARE, SELFPAY | PROVIDERS: Visit Provider Specialist/Technologist | DX: Z00.00 Encounter for general adult medical examination without abnormal findings (principal) ==

== ENCOUNTER → 2022-12-26 23:18 | Outpatient (CLI) | payer MEDICARE, SELFPAY ==
[2022-12-26 16:50] LABS: Basophils % 0.3 % (0.1-2.0); Eosinophils % 0.4 % (0.1-12.0); Hemoglobin 16.1 g/dL (14.1-18.0); Lymphocytes # 1.7 K/mm3 (0.7-4.5); Lymphocytes % 13.8 % (10-50); Mean Corpuscular HGB Conc 32.8 g/dL (31.8-35.4); Mean Corpuscular Hemoglobin 27.8 pg (27.0-31.2); Mean Corpuscular Volume 84.7 fl (80-94); Mean Platelet Volume 9.1 fl (7.4-10.4); Monocytes # 0.6 K/mm3 (0.1-1.0); Monocytes % 4.6 % (1.7-9.3); Neutrophils % 80.9 % (37.0-80.0); Platelet Count 234 K/mm3 (142-424); Red Blood Count 5.78 M/mm3 (4.60-6.20); Red Cell Distribution Width 13.6 % (11.5-17.5); White Blood Count 12.3 K/mm3 (4.8-10.8)
[2022-12-26 17:08] LABS: Alanine Aminotransferase 18 U/L (12-78); Albumin Level 4.6 g/dl (3.5-5.0); Albumin/Globulin Ratio 1.8 (1.1-1.8); Alkaline Phosphatase 70 U/L (38-126); Amylase 55 U/L (30-110); Anion Gap 23.1 mEq/L (5-15); Aspartate Amino Transferase 20 U/L (17-59); Bilirubin,Total 1.6 mg/dl (0.2-1.3); Blood Urea Nitrogen 24 mg/dl (9-20); Calcium 9.6 mg/dl (8.4-10.2); Carbon Dioxide 21 mmol/L (22.0-30.0); Chloride 97 mmol/L (98-107); Estimated Glomerular Filt Rate 41 ml/min (>60); GFR (African American) 50 ML/MIN (>60); Globulin 2.6 g/dL (1.3-3.2); Glucose 238 mg/dl (74-100); Lipase 37 U/L (23-300); Potassium 5.1 mmoL/L (3.5-5.1); Sodium 136 mmol/L (136-145); Total Protein,Serum 7.2 g/dl (6.3-8.2)
== END ==
PROVIDERS: PCP Family Medicine; Visit Provider Family Medicine
DX: R10.9 Unspecified abdominal pain (principal); M54.50 Low back pain, unspecified
CPT/HCPCS: 80053; 82150; 83690; 85025

== ENCOUNTER → 2022-12-27 07:56 | Outpatient (CLI) | payer MEDICARE, SELFPAY ==
--- NOTE | 2022-12-27 08:04 | US_ITS ---
FINAL REPORT TECHNIQUE: Ultrasound images of the abdomen were obtained. CLINICAL HISTORY: vomiting COMPARISON: None FINDINGS: The pancreas is obscured by bowel gas. There is fatty infiltration of the liver present. The gallbladder contains a small amount of sludge. The common duct is normal. The right kidney measures 9 cm in length and is normal in echogenicity without hydronephrosis. The left kidney measures 10.5 cm in length and is normal in echogenicity without hydronephrosis. The spleen is unremarkable. The aorta is normal in caliber. The vena cava is unremarkable. IMPRESSION: Fatty infiltration of the liver. Small amount of sludge in the gallbladder. Reviewed, Interpreted and Dictated by Williams Del Toro MD Transcribed by Laila Mijares Authenticated and [facility]
== END ==
PROVIDERS: PCP Family Medicine; Visit Provider Family Medicine
DX: R10.9 Unspecified abdominal pain (principal)
CPT/HCPCS: 76700

== ENCOUNTER → 2023-02-08 11:03 | Outpatient (CLI) | payer MEDICARE, SELFPAY ==
[2023-02-13 00:08] LABS: Calprotectin, Fecal 52 ug/g (0-120)
[2023-02-15 10:12] LABS: Pancreatic Elastase, Fecal 90 (>200)
== END ==
PROVIDERS: PCP Family Medicine; Visit Provider Nurse Practitioner
DX: E11.9 Type 2 diabetes mellitus without complications (principal); R10.9 Unspecified abdominal pain; R19.7 Diarrhea, unspecified; Z87.19 Personal history of other diseases of the digestive system; R10.10 Upper abdominal pain, unspecified; Z79.4 Long term (current) use of insulin
CPT/HCPCS: 82656; 83993

== ENCOUNTER 2023-04-14 18:18 | Emergency (ER) | payer MEDICARE, SELFPAY ==
[2023-04-14 18:19] VITALS: BP 150/79; PULSE 95; RESP 18; TEMP 37.5; O2SAT 90; BMI 30.7
--- NOTE | 2023-04-14 18:29 | XR_ITS ---
PROCEDURE INFORMATION: Exam: XR Chest Exam date and time: 04/14/2023 6:40 PM Age: 62 years old Clinical indication: Wheezing; Additional info: Diffuse wheezing TECHNIQUE: Imaging protocol: Radiologic exam of the chest. Views: 1 view. COMPARISON: CR XR CHEST 2V 12/13/2020 8:57 PM FINDINGS: Lungs: No evidence of acute pulmonary disease or infiltrates; lung herman appear clear. Pleural spaces: No evidence of pleural effusion, pneumothorax, or pleural thickening in the visualized pleural spaces. Heart/Mediastinum: Stable cardiac and mediastinal contours. Bones/joints: No evidence of acute osseous abnormalities within the visualized portions of the thoracic spine and ribs. Osseous structures appear appropriate for patient age. IMPRESSION: No dense parenchymal consolidation, pleural effusion, or pneumothorax.
[2023-04-14 18:34] LABS: POC Glucose,Bedside 185 (70-110)
[2023-04-14 18:43] LABS: Coronavirus 19, PCR Not Detected (NotDetected); Influenza A, PCR Not Detected (NotDetected)
--- NOTE | 2023-04-14 18:48 | ECG_ITS ---
APPROVED REPORT Exam: Resting ECG HR:95 bpm ECG Measurements Heart Rate 95 AXES TX 147 P 50 QRSd 82 QRS 25 QT 352 T 6 QTc 404 Conclusion SINUS RHYTHM NORMAL ECG UNCONFIRMED REPORT Electronically signed by : Dony Bateman MD 04/15/2023 14:45:40
[2023-04-14 18:55] LABS: Chloride 99 mmol/L (98-107); Sodium 136 mmol/L (136-145)
[2023-04-14 18:56] LABS: Potassium 3.7 mmoL/L (3.5-5.1)
[2023-04-14 18:58] LABS: Alanine Aminotransferase 26 U/L (12-78); Albumin Level 4.4 g/dl (3.5-5.0); Albumin/Globulin Ratio 1.6 (1.1-1.8); Alkaline Phosphatase 61 U/L (38-126); Anion Gap 14.7 mEq/L (5-15); Aspartate Amino Transferase 25 U/L (17-59); Bilirubin,Total 0.9 mg/dl (0.2-1.3); Blood Urea Nitrogen 12 mg/dl (9-20); Carbon Dioxide 26 mmol/L (22.0-30.0); Creatinine Clearance Estimated 72 mL/min (50-200); Estimated Glomerular Filt Rate 56 ml/min (>60); GFR (African American) 68 ML/MIN (>60); Globulin 2.8 g/dL (1.3-3.2); Glucose 200 mg/dl (74-100); Lipase 38 U/L (23-300); Total Protein,Serum 7.2 g/dl (6.3-8.2)
[2023-04-14 18:59] LABS: Lactic Acid 1.3 mmol/L (0.7-2.1)
[2023-04-14 19:00] LABS: Acetone, Serum (Rapid) None Detected (None Detect)
[2023-04-14 19:06] LABS: Ethyl Alcohol < 10 mg/dl (0-10)
[2023-04-14 19:10] LABS: Influenza B, PCR Detected (NotDetected)
[2023-04-14 19:11] LABS: Troponin I < 0.01 ng/ml (0.00-0.034)
[2023-04-14 19:13] LABS: VBG HCO3 25.8 mmol/L (23-30); VBG Oxygen Saturation 57.3 % (50-70); VBG PCO2 48.8 mmol/L (35-51); VBG PH 7.34 mmol/L (7.31-7.41); VBG PO2 29.2 mmol/L (28-40); VBG Total CO2 27.3 mmol/L (23-27)
[2023-04-14 19:17] LABS: Basophils # 0.1 K/mm3 (0-0.2); Basophils % 0.5 % (0.1-2.0); Eosinophils % 0.5 % (0.1-12.0); Hematocrit 44.1 % (42.0-52.0); Hemoglobin 14.9 g/dL (14.1-18.0); Lymphocytes % 11.5 % (10-50); Mean Corpuscular HGB Conc 33.8 g/dL (31.8-35.4); Mean Corpuscular Hemoglobin 28.4 pg (27.0-31.2); Mean Platelet Volume 8.5 fl (7.4-10.4); Monocytes # 0.6 K/mm3 (0.1-1.0); Monocytes % 6.6 % (1.7-9.3); Neutrophils # 7.1 K/mm3 (1.8-7.8); Neutrophils % 80.8 % (37.0-80.0); Platelet Count 208 K/mm3 (142-424); Red Blood Count 5.24 M/mm3 (4.60-6.20); Red Cell Distribution Width 13.8 % (11.5-17.5); White Blood Count 8.8 K/mm3 (4.8-10.8)
--- NOTE | 2023-04-14 19:27 | HMH.EDGENADL ---
Discharge Plan Disposition Patient Disposition: Home, Self-Care Prescriptions Prescriptions: New oseltamivir [Tamiflu] 75 mg capsule 75 mg PO BID 5 Days Qty: 10 0RF No Action amoxicillin-pot clavulanate [Augmentin] 500-125 mg tablet 1 tab PO TID Qty: 30 0RF hydrocodone-acetaminophen 10-325 mg tablet 1 tab PO BID PRN (DME) blood-glucose meter [Blood Glucose Monitoring] Kit See Rx Instructions .Route Qty: 1 0RF Rx Instructions: As directed (DME) Blood Glucose Test Strip See Rx Instructions .Route Qty: 100 3RF Rx Instructions: Pt is to test BID prn (DME) lancets Misc See Rx Instructions .Route Qty: 100 3RF Rx Instructions: Pt is to test BID prn (DME) lancets [OneTouch Delica Plus Lancet] 33 gauge misc See Rx Instructions .ROUTE .MEDSUPPLY Qty: 100 Patient Comments: USE 1 LANCET TO CHECK GLUCOSE TWICE DAILY NEEDED FOR DIABETES Rx Instructions: As directed (DME) blood-glucose meter [OneTouch Ultra2 Meter] Misc See Rx Instructions .ROUTE .MEDSUPPLY Qty: 1 Patient Comments: USE DIRECTED FOR DIABETES Rx Instructions: As directed promethazine 25 mg tablet 25 mg PO Q6H PRN (Reason: nausea and vomiting) Qty: 20 2RF fluticasone propionate [Flonase Allergy Relief] 50 mcg/actuation spray,suspension 1 spray intranasal DAILY Qty: 16 2RF Rx Instructions: administer into each nostril (DME) needle (disp) 31 gauge 31 gauge x 5/16 needle See Rx Instructions .Route Qty: 100 1RF Rx Instructions: As directed insulin glargine 100 unit/mL (3 mL) insulin pen 26 unit SQ DAILY 30 Days Qty: 7.8 4RF citalopram [Celexa] 20 mg tablet 20 mg PO DAILY 90 Days Qty: 90 0RF finasteride 5 mg tablet 5 mg PO DAILY 90 Days Qty: 90 0RF glipizide 5 mg tablet 5 mg PO BID 90 Days Qty: 180 0RF metformin 500 mg tablet extended release 24 hr 1,000 mg PO BID 90 Days Qty: 360 0RF omeprazole 20 mg capsule,delayed release(DR/EC) 20 mg PO DAILY 90 Days Qty: 90 0RF Referrals Follow up/Referrals: Tam Erazo MD [Primary Care Provider] - See instructions Activity Restrictions/Add. Instructions Additional Instructions/Restrictions: Call your family doctor to establish care for this visit to the emergency department and schedule follow-up within 48 hours to ensure improvement. If you have any worsening of your condition or any other concerning signs or symptoms, return to the emergency department or your primary care doctor for further evaluation. Clinical Impressions Clinical Impression: Influenza B Discharge ED Provider: Alcon Schulte General Adult HPI General Chief complaint: Weakness Stated complaint: weak, not eating vomiting cough Time Seen by Provider: 04/14/23 18:22 Mode of Arrival: Wheelchair Source of Information: Patient and Spouse Limitations: No Limitations Description of Symptoms (Recalled from ER Triage Doc. by RN): Spouse states patient has been weak, cough, not eating and vomiting since Saturday. History of Present Illness HPI narrative: 62-year-old male presenting with plaints. Patient states that he has been feeling with and not eating since Saturday. He had a cough that is nonproductive, vomited on the way over to the emergency department. Unable to tell me if it was bilious or bloody. States he has not taken any p.o. intake for multiple days. corroborating the story. Denies any pain, diarrhea, rash, but has been on amoxicillin for the last few days due to an ear infection. No new medication changes Related Data Home Medications Medication Instructions Recorded Confirmed hydrocodone 10 mg-acetaminophen 1 tab PO BID PRN 01/16/22 04/09/23 325 mg tablet blood-glucose meter (OneTouch #1 ea 12/26/22 04/09/23 Ultra2 Meter) lancets 33 gauge (OneTouch Delica #100 ea 12/26/22 04/09/23 Plus Lancet) Previous Rx's Medication Instructions Recorded nee
[2023-04-14 19:32] LABS: Hemoglobin A1C 8.1 % (4.0-6.0)
[2023-04-14 19:47] VITALS: BP 136/70; PULSE 89; RESP 18; TEMP 37.2; O2SAT 94
== END 2023-04-14 19:55 | disposition home or self-care (01) ==
PROVIDERS: Emergency Provider Emergency Medicine; PCP Family Medicine
DX: J10.1 Influenza due to other identified influenza virus with other respiratory manifestations (principal); R05.9 Cough, unspecified; R53.1 Weakness; E11.9 Type 2 diabetes mellitus without complications; I10 Essential (primary) hypertension; I69.315 Cognitive social or emotional deficit following cerebral infarction
CPT/HCPCS: 71045; 80053; 82009; 82803; 82962; 83036; 83605; 83690; 84484; 85025; 87040; 87636; 93005; 96361; 96374; 99285; J2405

== ENCOUNTER 2023-04-23 09:59 | Observation (INO) | payer MEDICARE, SELFPAY ==
[2023-04-23] VITALS (11 sets, daily range): BP systolic 117–146; BP diastolic 72–92; PULSE 60–85; RESP 12–22; TEMP 36.4–36.7; O2SAT 93–98; BMI 29.0; BMI 28.0
--- NOTE | 2023-04-23 10:06 | ECG_ITS ---
APPROVED REPORT Exam: Resting ECG HR:80 bpm ECG Measurements Heart Rate 80 AXES RI 148 P 37 QRSd 93 QRS 104 QT 407 T 34 QTc 443 Conclusion SINUS RHYTHM RIGHT AXIS DEVIATION [QRS AXIS > 100] ABNORMAL ECG UNCONFIRMED REPORT Electronically signed by : Dony Bateman MD 04/24/2023 09:02:03
--- NOTE | 2023-04-23 10:08 | PC.NURSE ---
FSBS: 213
--- NOTE | 2023-04-23 10:11 | PC.NURSE ---
Dr. Rolon at [facility] for pt eval
--- NOTE | 2023-04-23 10:19 | CT_ITS ---
FINAL REPORT TECHNIQUE: Axial CT images were performed through the head. Coronal and sagittal reformatted images were submitted. This study was performed with techniques to keep radiation doses as low as reasonably achievable (ALARA). Individualized dose reduction techniques using automated exposure control or adjustment of mA and/or kV according to the patient's size were employed. CLINICAL HISTORY: left sided weakness since 04/12 COMPARISON: None FINDINGS: Mild global atrophy is identified, slightly greater than would be expected for the patient's chronologic age. There is no evidence of hemorrhage. There are multiple low densities seen bilaterally, the largest of which is in the right basal ganglia, likely small lacunar infarcts. There is no mass or edema identified. There is no abnormal extra-axial fluid seen. There is moderate mucoperiosteal thickening in the maxillary sinuses bilaterally. IMPRESSION: Mild global atrophy, slightly greater than expected for the patient's chronologic age. Multiple small lacunar infarcts are identified as well. Moderate mucoperiosteal thickening in the maxillary sinuses bilaterally. Reviewed, Interpreted and Dictated by Williams Del Toro MD Transcribed by Laila Mijares Authenticated and [facility]
--- NOTE | 2023-04-23 10:19 | CT_ITS ---
FINAL REPORT TECHNIQUE: NASCET technique utilized for stenosis evaluation. CLINICAL HISTORY: left sided weakness since 04/12 COMPARISON: None FINDINGS: RIGHT CAROTID: No significant stenosis is seen of the cervical common or internal carotid artery. There is mild vascular calcification in the proximal right internal carotid artery, not producing any significant stenosis. LEFT CAROTID: No significant stenosis seen of the cervical common or internal carotid artery. VERTEBRALS: The vertebrals are patent. No significant stenosis is present. IMPRESSION: No significant arterial abnormality. Reviewed, Interpreted and Dictated by Williams Del Toro MD Transcribed by Laila Mijares Authenticated and . [facility]
--- NOTE | 2023-04-23 10:19 | CT_ITS ---
FINAL REPORT TECHNIQUE: thin section axial CT with and without IV contrast supplemented with multiplanar 3-D reconstruction of the head. This study was performed with techniques to keep radiation doses as low as reasonably achievable, (ALARA)individualized dose reduction techniques using automated exposure control or adjustment of mA and/or kV according to the patient's size were employed. CLINICAL HISTORY: left sided weakness since 04/12 COMPARISON: None FINDINGS: HEAD CT: Mild atrophy is present. There is no evidence of hemorrhage. No masses are identified. No extra-axial fluid is seen. CTA: The cranial circulation is unremarkable. There is no significant stenosis, aneurysm or occlusion. IMPRESSION: No acute process. Reviewed, Interpreted and Dictated by Williams Del Toro MD Transcribed by Laila Mijares Authenticated and [facility]
--- NOTE | 2023-04-23 10:21 | HMH.EDGENADL ---
Discharge Plan Disposition Patient Disposition: Home, Self-Care Prescriptions Prescriptions: No Action dorzolamide-timolol 22.3-6.8 mg/mL drops 1 drp Eye-Both BID ketorolac 0.5 % drops 1 drp Eye-Both TID latanoprost 0.005 % drops 1 drp Eye-Both DAILY azithromycin 500 mg tablet 500 mg PO DAILY Qty: 10 0RF sulfamethoxazole-trimethoprim 800-160 mg tablet 1 tab PO BID Qty: 20 0RF hydrocodone-acetaminophen 10-325 mg tablet 1 tab PO BID PRN (DME) blood-glucose meter [Blood Glucose Monitoring] Kit See Rx Instructions .Route Qty: 1 0RF Rx Instructions: As directed (DME) Blood Glucose Test Strip See Rx Instructions .Route Qty: 100 3RF Rx Instructions: Pt is to test BID prn (DME) lancets Misc See Rx Instructions .Route Qty: 100 3RF Rx Instructions: Pt is to test BID prn (DME) lancets [OneTouch Delica Plus Lancet] 33 gauge misc See Rx Instructions .ROUTE .MEDSUPPLY Qty: 100 Patient Comments: USE 1 LANCET TO CHECK GLUCOSE TWICE DAILY NEEDED FOR DIABETES Rx Instructions: As directed (DME) blood-glucose meter [OneTouch Ultra2 Meter] Misc See Rx Instructions .ROUTE .MEDSUPPLY Qty: 1 Patient Comments: USE DIRECTED FOR DIABETES Rx Instructions: As directed promethazine 25 mg tablet 25 mg PO Q6H PRN (Reason: nausea and vomiting) Qty: 20 2RF (DME) needle (disp) 31 gauge 31 gauge x 5/16 needle See Rx Instructions .Route Qty: 100 1RF Rx Instructions: As directed insulin glargine 100 unit/mL (3 mL) insulin pen 26 unit SQ DAILY 30 Days Qty: 7.8 4RF citalopram [Celexa] 20 mg tablet 20 mg PO DAILY 90 Days Qty: 90 0RF finasteride 5 mg tablet 5 mg PO DAILY 90 Days Qty: 90 0RF glipizide 5 mg tablet 5 mg PO BID 90 Days Qty: 180 0RF metformin 500 mg tablet extended release 24 hr 1,000 mg PO BID 90 Days Qty: 360 0RF omeprazole 20 mg capsule,delayed release(DR/EC) 20 mg PO DAILY 90 Days Qty: 90 0RF Referrals Follow up/Referrals: Tam Erazo MD [Primary Care Provider] - See instructions Activity Restrictions/Add. Instructions Additional Instructions/Restrictions: Your CT scan demonstrated a age-indeterminate lacunar infarct which may be the cause of your symptoms but hospitalization was recommended for MRI and further restratification and treatment of your left-sided weakness including functional treatment with physical therapy occupational therapy and possible rehab but you declined this and opted to follow-up with your primary care doctor. Please return to the emergency department with any worsening symptoms or other concerns Clinical Impressions Clinical Impression: Left-sided weakness, Lacunar infarction Discharge ED Provider: Patricio Rolon General Adult HPI General Chief complaint: Neuro Symptoms/Deficit Stated complaint: stroke symptoms Time Seen by Provider: 04/23/23 10:09 History of Present Illness HPI narrative: Patient is a 62-year-old male presenting today with left upper and left lower extremity weakness and changes in mental status. states that this began 2 to 3 weeks ago and when asked to give a specific date she believes April 12 is when this began when she started noticing his mental status being a low bit off and his interactions being abnormal as well as noticing his left arm not functioning properly. Since that time he has been dragging his left foot and his coordination has been off falling to one side. States that he also had a fever and chills and cough and was in the emergency department about a week ago was diagnosed with the flu. She is back with worsening symptoms. Related Data Home Medications Medication Instructions Recorded Confirmed hydrocodone 10 mg-acetaminophen 1 tab PO BID PRN 01/16/22 04/19/23 325 mg tablet blood-glucose meter (OneTouch #1 ea 12/26/22 04/19/23 Ultra2 Meter) lancets 33 gauge (OneTouch Delica #100 ea 12/26/22 04/19/23 Plus Lancet) dorzolamide 22.3 mg-timolol 6.8 1 drp Eye-Both BID 04/19/23 04/19/23 mg/mL eye drops ketorolac 0.5 % eye drops 1 drp Eye-Both TID 04/19/23 04/19/23 latanoprost 0.005 % eye drops 1 drp Eye-Both DAILY 04/19/23 04/19/23 Previous Rx's Medication Instructions Recorded needle (disp) 31 gauge 31 gauge x #100 ea 05/04/2209/11 blood sugar diagnostic (Blood #100 ea 10/12/22 Glucose Test strips) blood-glucose meter (Blood Glucose #1 ea 10/12/22 Monitoring kit) lancets #100 ea 10/12/22 promethazine 25 mg tablet 25 mg PO Q6H PRN nausea and 12/26/22 vomiting #20 tabs insulin glargine 100 unit/mL (3 26 unit (0.26 mL) SQ DAILY 30 days 12/27/22 mL) subcutaneous pen #7.8 mL citalopram 20 mg tablet (Celexa) 20 mg PO DAILY 90 days #90 tabs 01/28/23 finasteride 5 mg tablet 5 mg PO DAILY 90 days #90 tabs 01/28/23 glipizide 5 mg tablet 5 mg PO BID 90 days #180 tabs 01/28/23 metformin 500 mg tablet,extended 1,000 mg PO BID diabetes 90 days 01/28/23 release 24 hr #360 tabs omeprazole 20 mg capsule,delayed 20 mg PO DAILY GERD 90 days #90 01/28/23 release caps azithromycin 500 mg tablet 500 mg PO DAILY #10 tabs 04/19/23 sulfamethoxazole 800 1 tab PO BID #20 tabs 04/19/23 mg-trimethoprim 160 mg tablet Allergies Allergy/AdvReac Type Severity Reaction Status Date / Time cefaclor [From [facility]] Allergy Unknown Verified 04/19/23 11:24 [facility] Disclaimer: The information contained in this section may have been updated after the patient was seen, as this information can be updated by other users. Medical History BPH (benign prostatic hyperplasia) CVA, old, cognitive deficits Depression DM2 (diabetes mellitus, type 2) Hypertension Low back pain Surgical History History of knee replacement procedure of right knee Family History Father Heart attack Grandfather Heart attack Mother Cancer Social History Smoking Status: Never smoker alcohol intake: never substance use type: denies use current occupational status: disabled Travel in the last 8 weeks: None household members: spouse housing: house ROS Obtained: Yes All systems reviewed & no additional complaints except as documented Physical Exam General General appearance: alert and in no apparent distress Respiratory Respiratory exam: Present normal lung sounds bilaterally; Absent respiratory distress Cardiovascular Cardiovascular exam: Present regular rate; Absent tachycardia Abdominal Exam Abdominal exam: Present soft, distention and tenderness Neurological Exam Neurological exam: Present alert, oriented X3, CN II-XII intact and other (Patient has 4-5 strength in left upper and left lower extremity also has finger past-pointing on that side and some ataxia with the left lower extremity likely secondary to strength NIH stroke scale of 2); Absent motor sensory deficit Medical Decision Making Porter Inquiry Pt receiving controlled substance: No Vital Signs: 04/23/23 09:59 Temperature 97.6 F Temperature Source Oral Pulse Rate [Right] 85 Respiratory Rate 20 Blood Pressure [Right Arm] 138/87 Blood Pressure Mean [Right Arm] 104 Blood Pressure Source [Right Arm] Automatic Cuff 02 Sat by Pulse Oximetry 96 Oxygen Delivery Method Room Air Lab Data Lab results reviewed: Yes I reviewed the patient's lab results. Lab Results 04/23/23 10:00: WBC 7.0, RBC 5.45, Hgb 15.5, Hct 44.2, MCV 81.1, MCH 28.4, MCHC 35.0, RDW 13.6, Plt Count 399, MPV 8.0, Neut % (Auto) 64.5, Lymph % (Auto) 25.0, [place] % (Auto) 8.3, Eos % (Auto) 1.7, Baso % (Auto) 0.4, Neut # (Auto) 4.5, Lymph # (Auto) 1.8, [place] # (Auto) 0.6, Eos # (Auto) 0.1, Baso # (Auto) 0.0, PT 11.1, INR 1.03, APTT 31.7 H, Sodium 137, Potassium 3.6, Chloride 106, Carbon Dioxide 23, Anion Gap 11.6, BUN 13, Creatinine 1.30 H, Estimated Creat Clear 68, Estimated GFR 56 L, Est GFR ( Amer) 68, Glucose 217 H, Calcium 9.0, Total Bilirubin 0.8, AST 24, ALT 24, Alkaline Phosphatase 74, Troponin I < 0.01, Total Protein 7.6, Albumin 4.3, Globulin 3.3 H, Albumin/Globulin Ratio 1.3 04/23/23 11:04: Urine Color Yellow, Urine Appearance Clear, Urine pH 6.0, Ur Specific [place] 1.020, Urine Protein Negative, Urine Glucose (UA) 1+, Urine Ketones Negative, Urine Blood Negative, Urine Nitrate Negative, Urine Bilirubin Negative, Urine Urobilinogen 0.2, Ur Leukocyte Esterase Negative, Urine RBC None, Urine WBC 3-5, Ur Squamous Epith Cells Occasional, Urine Bacteria Trace 04/23/23 10:00 04/23/23 10:00 Orders (Tests/Meds): ED MEDICATIONS Discontinued Medications Generic Name Dose Route Start Last Admin Trade Name Freq PRN Reason Stop Dose Admin Lactated Ringer's 1,000 mls @ 999 mls/hr 04/23/23 10:30 04/23/23 11:39 Lactated Ringer's 1000 Ml Bag IV 04/23/23 11:30 999 mls/hr .Q1H1M AGUSTIN Administration Iopamidol 100 ml 04/23/23 11:03 04/23/23 11:04 Iopamidol-370 (76%);100ml Bottle IV 04/23/23 11:04 100 ml ONCE ONE Administration Sodium Chloride 50 ml 04/23/23 11:03 04/23/23 11:04 0.9 % Sodium Chloride 50 Ml Vial IV 04/23/23 11:04 50 ml ONCE ONE Administration Sodium Chloride 10 ml 04/23/23 11:03 04/23/23 11:04 Sodium Chloride 0.9% 10ml Syr (Rad Only) IV 04/23/23 11:04 10 ml ONCE ONE Administration ORDERS Category Date Time Status CT angio head Stat Cat Scan 04/23/23 10:[address] angio neck Stat Cat Scan 04/23/23 10:[address] head/brain wo con Stat Cat Scan 04/23/23 10:19 Taken CBC w/Auto Diff [Complete Blood Count Auto Diff] Stat Lab 04/23/23 10:00 Completed CMP [Comprehensive Metabolic Panel] Stat Lab 04/23/23 10:00 Completed PT/PTT Stat Lab 04/23/23 10:00 Completed Trop I [Troponin I] Stat Lab 04/23/23 10:00 Completed Troponin I Q3H Lab 04/23/23 13:30 Ordered Troponin I Q3H Lab 04/23/23 16:30 Ordered UA [Urinalysis and Microscopic] Stat Lab 04/23/23 11:04 Completed Medical Decision Narrative: Patient is a 62-year-old male presenting today with left upper and left lower extremity weakness which has been ongoing according to his who is in the room for 2 to 3 weeks. At this point and see some abnormalities CT scans. Will get a noncontrasted CT scan of the head and CT angio head and neck for further evaluation. This seems to be focal and abnormality differential include stroke hemorrhage mass etc. EKG performed which I first interpreted shows a ventricular rate of 80 normal sinus rhythm no acute ischemic changes noted no significant conduction abnormalities there is some slight right axis deviation which is nonspecific overall nondiagnostic emergency EKG. Reassessment 12:26 PM serial neurologic exams unchanged. Patient still has some left-sided weakness. states that she is having difficult time taking care of him at home CT scans performed which I personally interpreted which show no large cortical stroke or LVO radiology reads are no LVO but there are some small lacunar infarcts which may be the cause of the patient's symptoms I advised they come in the hospital for further restratification echo MRI physical therapy Occupational Therapy etc. however the patient is denying this. He is alert oriented answering questions appropriately has the capacity to make this decision and while the disagreed with him the patient made an ultimate decision to go home and follow-up outpatient with his primary care doctor. He was therefore discharged in a stable condition. A stroke is most likely 2 to 3 weeks old at this point but he does need further workup. No alternative explanation to his symptoms today were found on his evaluation and treatment. He understands without appropriate restratification that he could have permanent disability and and was discharged in a stable condition. Critical Care Critical Care Time Critical Care Time: No
[2023-04-23 10:27] LABS: Basophils % 0.4 % (0.1-2.0); Eosinophils # 0.1 K/mm3 (0.0-0.4); Eosinophils % 1.7 % (0.1-12.0); Hematocrit 44.2 % (42.0-52.0); Hemoglobin 15.5 g/dL (14.1-18.0); Lymphocytes # 1.8 K/mm3 (0.7-4.5); Mean Corpuscular Hemoglobin 28.4 pg (27.0-31.2); Mean Corpuscular Volume 81.1 fl (80-94); Monocytes # 0.6 K/mm3 (0.1-1.0); Monocytes % 8.3 % (1.7-9.3); Neutrophils # 4.5 K/mm3 (1.8-7.8); Neutrophils % 64.5 % (37.0-80.0); Platelet Count 399 K/mm3 (142-424); Red Blood Count 5.45 M/mm3 (4.60-6.20); Red Cell Distribution Width 13.6 % (11.5-17.5)
[2023-04-23 10:37] LABS: Alanine Aminotransferase 24 U/L (12-78); Albumin Level 4.3 g/dl (3.5-5.0); Albumin/Globulin Ratio 1.3 (1.1-1.8); Alkaline Phosphatase 74 U/L (38-126); Anion Gap 11.6 mEq/L (5-15); Aspartate Amino Transferase 24 U/L (17-59); Bilirubin,Total 0.8 mg/dl (0.2-1.3); Blood Urea Nitrogen 13 mg/dl (9-20); Carbon Dioxide 23 mmol/L (22.0-30.0); Chloride 106 mmol/L (98-107); Creatinine Clearance Estimated 68 mL/min (50-200); Estimated Glomerular Filt Rate 56 ml/min (>60); GFR (African American) 68 ML/MIN (>60); Globulin 3.3 g/dL (1.3-3.2); Glucose 217 mg/dl (74-100); Potassium 3.6 mmoL/L (3.5-5.1); Sodium 137 mmol/L (136-145); Total Protein,Serum 7.6 g/dl (6.3-8.2)
[2023-04-23 10:41] LABS: Activated Partial Thrombo Time 31.7 seconds (22.8-30.6); INR 1.03 (0.9-1.1); Prothrombin Time 11.1 seconds (10.1-12.5)
--- NOTE | 2023-04-23 10:46 | PC.NURSE ---
Pt gone to RAD via wheelchair
[2023-04-23 11:01] LABS: Troponin I < 0.01 ng/ml (0.00-0.034)
[2023-04-23] MEDS: 0.9 % SODIUM CHLORIDE 50 ML VIAL IV (11:04)
[2023-04-23] MEDS: IOPAMIDOL-370 (76%);100ML BOTTLE 100 ML IV (11:04)
[2023-04-23] MEDS: SODIUM CHLORIDE 0.9% 10ML SYR (RAD ONLY) 10 ML IV (11:04)
[2023-04-23 11:08] LABS: Microscopic, Urine URINE MICROSCOPIC (MICROSCOPIC)
[2023-04-23 11:10] LABS: Appearance,Urine CLEAR (Clear); Bilirubin,Urine Negative (Negative); Blood, Urine Negative (Negative); Color,Urine YELLOW (Yellow); Glucose,Urine (UA) 1+ (Negative); Ketones,Urine Negative (Negative); Leukocyte Esterase,Urine Negative (Negative); Nitrate,Urine Negative (Negative); Protein,Urine Negative (Negative); Urobilinogen,Urine 0.2 EU/dl (0.2)
[2023-04-23 11:22] LABS: Bacteria,Urine Trace /lpf; Squamous Epithelial Cell,Urine Occasional #/hpf (0-5)
[2023-04-23] MEDS: LACTATED RINGERS 1000ML 1,000 ML 999 ML IV (11:39)
--- NOTE | 2023-04-23 11:55 | PC.NURSE ---
Rounded on pt. No needs voiced. Call light within reach
--- NOTE | 2023-04-23 12:21 | PC.NURSE ---
Dr. Rolon at [facility] to update pt/family on results AND poc
--- NOTE | 2023-04-23 12:49 | CA_ITS ---
APPROVED REPORT EXAM: Comprehensive 2D, Doppler, and color-flow Echocardiogram Jewelry Setter: MALLORIE Worley, RVS Ht: 5 ft 6 in Wt: 180lbs BSA: 1.91 BP: 138/87 mmHg Rhythm: Bradycardia Indications: CVA, Dysphasia, dizziness Diabetes, Hypertension/HDD Echo Enhancing Agent Indication: Rule Out Septal Defect Agent(s) / Amount(s) Used: Agitated Saline 30 cc Comments: Pt supine throughout exam, Negative 3 phase bubble study 2D Dimensions Aortic Root 2.90 cm M: 3.1 - 3.7 LVEF ([place]'s) 48.70 % M: 52 - 72 Left Atrium 3.55 cm M: 3.0 - 4.0 LV Volume 88.50 mL M: 62 - 150 RVID Base (AP4) 3.38 cm (M/F) 2.5-4.1 LV Volume Index 46.3 mL/m2 M: 34 - 74 LVOT 1.93 cm (M/F) 1.5-2.5 LA Volume 40.70 mL LA Volume Index 21.31 mL/m2 (M/F) 16-34 EF AP4 53.50 % EF AP2 40.0 % EF BP 48.7 % GL Strain -16.9 % M-Mode Dimensions RVDd 3.64 cm (0.9-2.6) LVDd 4.60 cm (3.5-5.7) Ao Diam 3.39 cm (2.0-3.7) LVDs 3.20 cm (3.5-5.7) IVSd 1.16 cm (0.6-1.1) PWd 0.96 cm (0.6-1.1) EF (Teich) 57.90% EPSs 0.57 cm FS 30.40% EDV (Teich) 97.30 mL TAPSE 2.60 (<1.7) ESV (Teich) 41.00 mL LV Diastology E Decel Time 253 (160-240 msec) E/A Ratio 0.7 MED E' 5.5 (>= 7 cm/sec) MED A' 7.70 cm/s E'/MED E' Ratio 11.42 (<= 14) LAT E' 7.5 (>= 10 cm/sec) LAT A' 10.60 cm/s E/LAT E' Ratio 8.37 (<= 14) Aortic Valve LVOT Max 94.0 (70-110 cm/s) MILO Index 1.29 cm2/m2 LVOT VTI 21.69 cm AoV Peak Omar. 115.0 (50-130 cm/s) AO Mean GR. 2.60 (<5 mmHg) AO VTI 25.6 (18-25 cm) MILO (VTI) 2.47 (2.5-4.5 cm2) Mitral Valve MV E Max Omar. 63.0 (40-130 cm/s) MV A Velocity 92.0 (40-130 cm/s) E/A Ratio 0.68 MV Decel. Time 253 (160-240 ms) Left Ventricle The left ventricle is normal size. The left ventricular systolic function is normal. The left ventricular ejection fraction is within the normal range. There is normal left ventricular wall thickness. The endocardial borders are not very well-visualized (especially at the apex), but grossly there is normal LV segmental wall motion. The left ventricular diastolic function is normal. LVEF is 55%. Right Ventricle The right ventricle is normal size. The right ventricular systolic function is normal. Atria The left atrium size is normal. The right atrium size is normal. There is no Doppler evidence of interatrial shunt. Saline bubble contrast intravenous injection at rest and with Valsalva does not demonstrate PFO. Aortic Valve The aortic valve is mildly thickened. There is no aortic valvular stenosis. Trace aortic regurgitation. Mitral Valve The mitral valve leaflets are mildly thickened. No evidence of mitral valve stenosis. Trace mitral regurgitation. Tricuspid Valve The tricuspid valve leaflets are thin and pliable. Trace tricuspid regurgitation. There is insufficient TR jet to estimate RVSP. Pulmonic Valve The pulmonary valve is normal in structure. Trace pulmonic regurgitation. Great Vessels The aortic root is normal in size. The ascending aorta is not well-visualized. IVC is normal in size and collapses >50% with inspiration. Pericardium There is no pericardial effusion. Other Information Study Quality: Fair Conclusion Normal biventricular systolic function. No significant valvular stenosis or regurgitation. No Doppler evidence of interatrial shunt. Saline bubble contrast intravenous injection at rest and with Valsalva does not demonstrate PFO. Electronically signed by : Maria Victoria Hutton MD 04/23/2023 21:07:44
--- NOTE | 2023-04-23 12:49 | PC.NURSE ---
Notified CM of pt admission
--- NOTE | 2023-04-23 12:51 | EXP.HP ---
History of Present Illness *Admission Date: 04/23/23 *Reason for visit:: left sided weakness *History of present illness: Mr. Doty is a 62-year-old male with history of diabetes, anxiety, glaucoma, who to the ER are because of worsening weakness in his left upper and lower extremity over the past 2 to 3 days. He also reports some mental status changes and difficulty with word finding. states this began 2 to 3 weeks ago but he states it was just a few days ago. feels that he has been a little off mentally for the past 2 to 3 weeks but the general weakness and falling has occurred over the past 2 to 3 days. He has been developing a foot drag and falling to the left. Denies any chest pain, headache, nausea, vomiting. Did have fever and chills and was diagnosed with the flu little over a week ago. On eval today, CT in the ER concerning for lacunar infarct. Medicine consulted for admission and further management. After arriving to the floor, patient is alert and oriented x 3. Able to speak in complete sentences. Noted to have some mild left-sided deficits. No albert confusion on exam. Able to sit up in bed. Ambulates with assistance. [facility] Disclaimer: The information contained in this section may have been updated after the patient was seen, as this information can be updated by other users. Medical History BPH (benign prostatic hyperplasia) CVA, old, cognitive deficits Depression DM2 (diabetes mellitus, type 2) Hypertension Low back pain Surgical History History of knee replacement procedure of right knee Family History Heart attack Father Grandfather Cancer Mother Social History Smoking Status: Never smoker alcohol intake: never substance use type: denies use current occupational status: disabled Travel in the last 8 weeks: None household members: spouse housing: house Review of Systems Review of Systems Review of systems (narrative): 14 point review of systems performed, pertinent positives and negatives as per HPI Meds Home Medications and Allergies Home Medications Medication Instructions Recorded Confirmed Type hydrocodone 10 mg-acetaminophen 1 tab PO BID PRN Pain (Scale Score 01/16/22 04/23/23 History 325 mg tablet 4-6) needle (disp) 31 gauge 31 gauge x #100 ea 05/04/22 04/23/23 Rx /16 blood sugar diagnostic (Blood #100 ea 10/12/22 04/23/23 Rx Glucose Test strips) blood-glucose meter (Blood Glucose #1 ea 10/12/22 04/23/23 Rx Monitoring kit) lancets #100 ea 10/12/22 04/23/23 Rx blood-glucose meter (OneTouch #1 ea 12/26/22 04/23/23 History Ultra2 Meter) lancets 33 gauge (OneTouch Delica #100 ea 12/26/22 04/23/23 History Plus Lancet) promethazine 25 mg tablet 25 mg PO Q6H PRN nausea and 12/26/22 04/23/23 Rx vomiting #20 tabs insulin glargine 100 unit/mL (3 26 unit (0.26 mL) SQ DAILY 30 days 12/27/22 04/23/23 Rx mL) subcutaneous pen #7.8 mL citalopram 20 mg tablet (Celexa) 20 mg PO DAILY 90 days #90 tabs 01/28/23 04/23/23 Rx finasteride 5 mg tablet 5 mg PO DAILY 90 days #90 tabs 01/28/23 04/23/23 Rx glipizide 5 mg tablet 5 mg PO BID 90 days #180 tabs 01/28/23 04/23/23 Rx metformin 500 mg tablet,extended 1,000 mg PO BID diabetes 90 days 01/28/23 04/23/23 Rx release 24 hr #360 tabs omeprazole 20 mg capsule,delayed 20 mg PO DAILY GERD 90 days #90 01/28/23 04/23/23 Rx release caps azithromycin 500 mg tablet 500 mg PO DAILY #10 tabs 04/19/23 04/23/23 Rx dorzolamide 22.3 mg-timolol 6.8 1 drp Eye-Both BID 04/19/23 04/23/23 History mg/mL eye drops ketorolac 0.5 % eye drops 1 drp Eye-Both TID 04/19/23 04/23/23 History latanoprost 0.005 % eye drops 1 drp Eye-Both DAILY 04/19/23 04/23/23 History sulfamethoxazole 800 1 tab PO BID #20 tabs 04/19/23 04/23/23 Rx mg-trimethoprim 160 mg tablet New Prescriptions to Start Prescriptions: Allergies Allergy/AdvReac Type Severity Reaction Status Date / Time cefaclor [From [facility]] Allergy Unknown Verified 04/19/23 11:24 Exam Data for Last 24 hours Vital signs and Labs for Last 24 Hours: Temp Pulse Resp BP Pulse Ox O2 Del Method 97.6 F 85 20 138/87 96 Room Air 04/23/23 09:59 04/23/23 09:59 04/23/23 09:59 04/23/23 09:59 04/23/23 09:59 04/23/23 09:59 Laboratory Results - last 24 hr 04/23/23 10:00: WBC 7.0, RBC 5.45, Hgb 15.5, Hct 44.2, MCV 81.1, MCH 28.4, MCHC 35.0, RDW 13.6, Plt Count 399, MPV 8.0, Neut % (Auto) 64.5, Lymph % (Auto) 25.0, Finney % (Auto) 8.3, Eos % (Auto) 1.7, Baso % (Auto) 0.4, Neut # (Auto) 4.5, Lymph # (Auto) 1.8, Finney # (Auto) 0.6, Eos # (Auto) 0.1, Baso # (Auto) 0.0, PT 11.1, INR 1.03, APTT 31.7 H, Sodium 137, Potassium 3.6, Chloride 106, Carbon Dioxide 23, Anion Gap 11.6, BUN 13, Creatinine 1.30 H, Estimated Creat Clear 68, Estimated GFR 56 L, Est GFR ( Amer) 68, Glucose 217 H, Calcium 9.0, Total Bilirubin 0.8, AST 24, ALT 24, Alkaline Phosphatase 74, Troponin I < 0.01, Total Protein 7.6, Albumin 4.3, Globulin 3.3 H, Albumin/Globulin Ratio 1.3 04/23/23 11:04: Urine Color Yellow, Urine Appearance Clear, Urine pH 6.0, Ur Specific [place] 1.020, Urine Protein Negative, Urine Glucose (UA) 1+, Urine Ketones Negative, Urine Blood Negative, Urine Nitrate Negative, Urine Bilirubin Negative, Urine Urobilinogen 0.2, Ur Leukocyte Esterase Negative, Urine RBC None, Urine WBC 3-5, Ur Squamous Epith Cells Occasional, Urine Bacteria Trace I & O for Last 24 hours: Intake & Output 04/20/23 04/21/23 04/22/23 04/23/23 23:59 23:59 23:59 23:59 Weight 81.647 kg Constitutional Constitutional: no acute distress, average body habitus, chronically ill appearing and cooperative *Routine HEENT Exam Head: Present normocephalic Eye: Present EOMI and PERRL ENT: Present mucous membranes moist *Routine Neck Exam Neck: Present supple; Absent lymphadenopathy *Routine Respiratory Exam Respiratory: Present CTA bilaterally; Absent rhonchi, wheezes or crackles *Routine Cardiovascular Exam Cardiovascular: Present RRR *Routine Abdominal Exam Abdominal: Present soft and normoactive bowel sounds; Absent tenderness *Routine Rectal Exam Rectal:: deferred *Routine Genitalia Exam Genitalia:: deferred *Routine Extremities Exam Extremities: Absent cyanosis, clubbing or edema *Routine Skin Exam Skin: Present warm; Absent rash *Routine Neurological Exam Neurological: Present alert, oriented X3, CN II-XII intact, motor deficit and moving all extremities; Absent sensory deficit or altered mental status Comments: Right side strength 5/5 in upper and lower extremities. Left lower extremity with intact [id number] and. Strength 5/5 in left quad. Questionable weakness with left dorsiflexion of foot. 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 Unable to fully supinate left hand or shrug left shoulder. Assessment and Plan *Assessment and plan (1) Stroke: Status: Acute Qualifiers: CVA mechanism: other Qualified Code(s): I63.89 - Other cerebral infarction Category: Medical Code(s): I63.9 - Cerebral infarction, unspecified (2) Left-sided weakness: Status: Acute Category: Medical Code(s): R53.1 - Weakness (3) DM2 (diabetes mellitus, type 2): Status: Acute Qualifiers: Diabetes mellitus intermediate manager insulin use: with intermediate manager use Diabetes mellitus complication status: with kidney complications Diabetes mellitus complication detail: with chronic kidney disease Category: Medical Code(s): E11.9 - Type 2 diabetes mellitus without complications (4) Hypertension: Status: Acute Qualifiers: Hypertension type: primary hypertension Qualified Code(s): I10 - Essential (primary) hypertension Category: Medical Code(s): I10 - Essential (primary) hypertension (5) BPH (benign prostatic hyperplasia): Status: Acute Qualifiers: Lower urinary tract symptom presence: symptoms present Category: Medical Code(s): N40.0 - Benign prostatic hyperplasia without lower urinary tract symptoms (6) Glaucoma: Status: Acute Qualifiers: Glaucoma type: unspecified Category: Medical Code(s): H40.9 - Unspecified glaucoma Plan 62-year-old male with left-sided weakness. Found to have concern for lacunar infarct on CT. ER discussed case with medicine, requested admission for further workup and imaging including MRI and echo. Patient needs PT and OT eval's. Medicine agreed to admit for further management. MRI obtained showing ischemic region in the dacia. Necessitates inpatient admission. Problems addressed as follows: Stroke Left-sided weakness -CT personally reviewed, periventricular white matter lesions. MRI obtained showing abnormal signal in mid dacia. -Formal read of MRI as follows: There is a focus of abnormal signal in the mid dacia measuring 1.5 x 1.3 cm in size. This corresponds with an area of most likely acute versus early subacute ischemia. There are multiple foci of subcortical white matter signal bilaterally, consistent with chronic ischemic/gliotic microvascular disease and/or remote lacunar infarcts. -Initiate on aspirin 81 mg daily, Plavix 75 mg daily -Lipid panel pending. Initiate on Lipitor 40 mg daily -PT and OT consulted, appreciate their recommendations -Echo obtained with read pending Diabetes -A1c 8.3, this is the best A1c has had in the past year. Still above goal of 7 however -Continue glargine 26 units tonight. Sliding scale insulin with fingersticks ACHS. -Will consider further adjustments response -[place] 1 [place] grams twice daily Glaucoma: Continue ketorolac 0.5% eyedrop 3 times daily, dorzolamide/timolol eyedrop twice daily, latanoprost eyedrop daily. Anxiety: Continues pram 20 mg daily BPH: Continue finasteride 5 mg Roxanne daily Full code Holding on anticoagulation Diabetic diet
[2023-04-23 13:02] LABS: Cholesterol 203 mg/dl (140-200); Triglycerides 191 mg/dl (30-150); VLDL Cholesterol 38 mg/dL (0-40)
[2023-04-23 13:03] LABS: Chol/HDL Ratio 8.8 (1-3.5); HDL Cholesterol 23 mg/dl (40-60)
--- NOTE | 2023-04-23 13:36 | HMH.OTEV ---
OT Inpatient Evaluation Rehab OT IP Evaluation Start: 04/23/23 12:49 Freq: ONCE Status: Active Protocol: Document 04/23/23 13:31 TANA (Rec: 04/23/23 13:35 [id number] Rehab OT IP Assessment Subjective History Pt oriented x 3 on arrival. Patient is a 62-year-old male presenting today with left upper and left lower extremity weakness and changes in mental status. states that this began 2 to 3 weeks ago and when asked to give a specific date she believes April 12 is when this began when she started noticing his mental status being a low bit off and his interactions being abnormal as well as noticing his left arm not functioning properly. Since that time he has been dragging his left foot and his coordination has been off falling to one side. States that he also had a fever and chills and cough and was in the emergency department about a week ago was diagnosed with the flu. Prior to being in the hospital , pt lived with his . Pt reports he is normally able to complete all ADLs and IADLs independently. He does not require any type of AE during functional transfers. He no longer drives. Subjective I just feel weak here on the left side. Objective Patient Orientation Person,Place,Birthday Right Upper Extremity Gross ROM WNL Left Upper Extremity Gross ROM Min Limitation <25% Shoulder ROM Limitations Muscle Weakness Elbow ROM Limitations Muscle Weakness Wrist Limitations of Range of Motion Muscle Weakness Bed Mobility bed mobility-scooting,bed mobility - supine/sit Assist Level Contact Guard/Hand Hold Transfer Training Sit/Stand Transfer Assist Level Minimal x 1 (25% assist) Performing Toilet Hygiene Ability Contact Guard Overall Commode/Toilet Transfer Ability Minimal Assistance Commode/Toilet Transfer Technique Sit to/from Ambulatory Rehab OT IP prob,goals,plan Problems Date of Evaluation: 04/23/23 OT IP Problems Bed Mobility,Transfers,Balance ,Self care,Safety Rehab Potential Rehab Potential Good Equipment Needs Assistive Devices Rolling / Wheeled Walker Plan OT intervention Plan Bed Mobility,Transfers,Balance ,Self care,Safety,Therapeutic Exercise OT Plan Frequency BID Duration LOS Discharge Goals Bed Mobility Ability Standby Assistance Sit to Stand Chair Transfer Ability Contact Guard/Hand Hold Chair Transfer Ability Contact Guard/Hand Hold Chair Transfer Technique Sit to/from Ambulatory Chair Transfer Assistive Devices Rolling Walker Feeding Ability Assist with Tray Set Up Lower Body Dressing Ability Minimal Assistance Upper Body Dressing Ability Standby Assistance Bathing Ability Minimal Assistance Performing Toilet Hygiene Ability Contact Guard Overall Commode/Toilet Transfer Ability Contact Guard Commode/Toilet Transfer Technique Sit to/from Ambulatory Commode/Toilet Transfer Assistive Grab Bars Devices Oral Care Assist Standby Assistance Decrease in Endurance Yes Discharge Plan OT Discharge Plan Pt will continue to be seen for OT services while at [facility]. Pt can return home with his once he is medically stable per physician. OT recommends pt receive OT evaluation or complete outpatient therapy services to continue addressing his weakness in LUE. Pt agreeable with this plan. Eval Complexity Eval Charge Codes 38215 - Moderate Complexity PHYSICIAN CERTIFICATION: I certify the specified therapy services for José Miguel Doty JR are required, authorized, and reviewed every 30 days.
--- NOTE | 2023-04-23 13:47 | PC.NURSE ---
vascular at bedside for echo
--- NOTE | 2023-04-23 13:50 | HMH.PTEV ---
Physical Therapy Evaluation Rehab PT IP Evaluation Start: 04/23/23 12:49 Freq: ONCE Status: Active Protocol: Document 04/23/23 13:43 RACHAEL (Rec: 04/23/23 13:50 RACHAEL [id number]) Subjective/History History History Patient admitted to [facility] secondary to CVA related symptoms. Pt oriented x 3 on arrival. Patient is a 62-year -old male presenting today with left upper and left lower extremity weakness and changes in mental status. states that this began 2 to 3 weeks ago and when asked to give a specific date she believes April 12 is when this began when she started noticing his mental status being a low bit off and his interactions being abnormal as well as noticing his left arm not functioning properly. Since that time he has been dragging his left foot and his coordination has been off falling to one side. States that he also had a fever and chills and cough and was in the emergency department about a week ago was diagnosed with the flu. Prior to being in the hospital , pt lived with his . Pt reports he is normally able to complete all ADLs and IADLs independently. He does not require any type of AD during functional transfers. He no longer drives. Subjective Subjective They said I've had 5 TIA's. New diagnosis of cancer in past 12 No months? Rehab PT IP Eval Objective Appearance Patient Behavior Appropriate,Cooperative Patient Orientation Person,Place Difficulty following instructions none Speech Pattern Clear,Appropriate Ambulation Patient Able to Ambulate Yes Ambulation Observation IP General Gait Pattern Observation Wide Based Gait Ambulation Distance (feet) 40 Ambulation Assistive Device None Ambulation Ability Contact Guard/Hand Hold Balance Ability to Arise Able, uses arms to help Sitting Balance Leans or slides in chair Standing Balance Steady, wide stance Dynamic Sitting Balance Ability Normal Dynamic Standing Balance Ability Good Transfers Bed Transfer Ability Contact Guard/Hand Hold Sit to Stand Bed Transfer Ability Minimal x 1 (25% assist) ROM LLE PT ROM Status WFL MMT LLE PT MMT ABN Abnormal MMT Grade 4/5 grossly Rehab PT IP prob,goals,plan Problems Date of Evaluation: 04/23/23 PT IP Problems Bed Mobility,Transfers,Gait, Balance,Self care,Safety Rehab Potential Rehab Potential Good Plan PT Intervention Plan Bed Mobility,Transfers,Gait, Balance,Self care,Safety, Therapeutic Exercise PT Plan Frequency BID Duration LOS Discharge Goals Bed Transfer Ability Supervision/Stand by Sit to Stand Chair Transfer Ability Supervision/Stand by Ambulation Assistive Device Rolling Walker Ambulation Distance (feet) 100 Discharge Plan PT Discharge Plan PT will see this patient for the duration of stay. PT suggests that, at this time, patient would be a good candidate for discharge to home with . Suggest patient to consult with outpatient rehab, or set up with HHPT if there are any transportation concerns. Eval Complexity Eval Charge Codes 35299 - High Complexity PHYSICIAN CERTIFICATION: I certify the specified therapy services for José Miguel Doty JR are required, authorized, and reviewed every 30 days.
--- NOTE | 2023-04-23 13:50 | PC.NURSE ---
REPORT GIVEN TO CHAPITO MCALLISTER
[2023-04-23 14:08] LABS: Troponin I < 0.01 ng/ml (0.00-0.034)
[2023-04-23 14:43] LABS: Direct LDL Cholesterol 141.75 mg/dL (100-129)
--- NOTE | 2023-04-23 15:11 | HMH.PHAINT1 ---
Pharmacy Intervention Comments: Verified home med list with patient at bedside and with external pharmacy list.
--- NOTE | 2023-04-23 15:15 | MR_ITS ---
FINAL REPORT CLINICAL HISTORY: STROKE ON CT, FURTHER EVAL COMPARISON: None FINDINGS: Multi planar MR imaging was obtained through the brain without contrast. The midline structures appear intact. There is no evidence of Chiari malformation. There is a focus of abnormal signal in the mid dacia measuring 1.5 x 1.3 cm in size, best seen on image #9 of series 3.2. This corresponds with an area of decreased signal on the ADC map images, most likely acute or early subacute ischemia. There are multiple foci of subcortical white matter signal bilaterally, consistent with chronic ischemic/gliotic microvascular disease and/or remote lacunar infarcts. Bilateral mastoiditis is present. The seventh and eighth nerve root complexes are intact. IMPRESSION: Abnormal signal in the mid dacia as described, likely acute or early subacute ischemia. These results were called to [facility] emergency room, and given to José Miguel Barclay RN, 04/23/2023 at 4:30 PM. There are multiple foci of bilateral subcortical white matter signal, likely chronic ischemic/gliotic microvascular change or old lacunar infarcts. Bilateral mastoiditis. Reviewed, Interpreted and Dictated by Williams Del Toro MD Transcribed by Laila Mijares Authenticated and [facility]
[2023-04-23 16:39] LABS: POC Glucose,Bedside 255 (70-110)
[2023-04-23 17:29] LABS: Troponin I < 0.01 ng/ml (0.00-0.034)
[2023-04-23] MEDS: CLOPIDOGREL 75MG TAB 75 MG PO (17:53)
[2023-04-23] MEDS: ASPIRIN 81MG CHEWABLE TABLET 81 MG PO (17:53)
[2023-04-23] MEDS: humaLOG 100 UNITS/ML 3ML VIAL (SSI) SQ (20:20)
[2023-04-23] MEDS: ATORVASTATIN 40MG TABLET 40 MG PO (20:21)
[2023-04-23 20:22] LABS: POC Glucose,Bedside 325 (70-110)
[2023-04-24 04:00] VITALS: BP 147/75; PULSE 63; RESP 20; TEMP 36.6; O2SAT 98; BMI 28.9
--- NOTE | 2023-04-24 05:22 | PC.NURSE ---
Patient has had a good shift tonight. Has not been able to sleep all shift but has had no complaints. The patietn remains AxO and on RA. 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 No other issues this shift
[2023-04-24 05:41] LABS: POC Glucose,Bedside 181 (70-110)
[2023-04-24 06:53] LABS: Basophils % 0.3 % (0.1-2.0); Eosinophils # 0.1 K/mm3 (0.0-0.4); Hematocrit 38.4 % (42.0-52.0); Lymphocytes # 1.8 K/mm3 (0.7-4.5); Lymphocytes % 33.1 % (10-50); Mean Corpuscular HGB Conc 34.4 g/dL (31.8-35.4); Mean Corpuscular Hemoglobin 28.2 pg (27.0-31.2); Mean Corpuscular Volume 81.9 fl (80-94); Monocytes # 0.4 K/mm3 (0.1-1.0); Monocytes % 8.1 % (1.7-9.3); Neutrophils # 3.2 K/mm3 (1.8-7.8); Neutrophils % 57.5 % (37.0-80.0); Platelet Count 361 K/mm3 (142-424); Red Blood Count 4.69 M/mm3 (4.60-6.20); Red Cell Distribution Width 13.4 % (11.5-17.5); White Blood Count 5.5 K/mm3 (4.8-10.8)
[2023-04-24 07:00] LABS: Hemoglobin 13.2 g/dL (14.1-18.0)
[2023-04-24 07:05] LABS: Alanine Aminotransferase 24 U/L (12-78); Albumin Level 3.7 g/dl (3.5-5.0); Albumin/Globulin Ratio 1.4 (1.1-1.8); Alkaline Phosphatase 57 U/L (38-126); Anion Gap 9.3 mEq/L (5-15); Aspartate Amino Transferase 23 U/L (17-59); Bilirubin,Total 0.8 mg/dl (0.2-1.3); Blood Urea Nitrogen 8 mg/dl (9-20); Calcium 8.5 mg/dl (8.4-10.2); Carbon Dioxide 23 mmol/L (22.0-30.0); Chloride 104 mmol/L (98-107); Creatinine Clearance Estimated 80 mL/min (50-200); Estimated Glomerular Filt Rate 68 ml/min (>60); GFR (African American) 82 ML/MIN (>60); Globulin 2.7 g/dL (1.3-3.2); Glucose 193 mg/dl (74-100); Magnesium 1.6 mg/dl (1.6-2.3); Potassium 3.3 mmoL/L (3.5-5.1); Sodium 133 mmol/L (136-145); Total Protein,Serum 6.4 g/dl (6.3-8.2)
[2023-04-24 08:00] VITALS: BP 136/71; PULSE 68; RESP 17; TEMP 36.6; O2SAT 98
[2023-04-24] MEDS: CLOPIDOGREL 75MG TAB 75 MG PO (08:23)
[2023-04-24] MEDS: CITALOPRAM 20MG TABLET 20 MG PO (08:23)
[2023-04-24] MEDS: ASPIRIN 81MG CHEWABLE TABLET 81 MG PO (08:23)
[2023-04-24] MEDS: LATANOPROST 0.005% OPTH SOLN 2.5ML OP (08:24)
[2023-04-24] MEDS: INSULIN GLARGINE 100 UNITS/ML 3ML FLEXPEN 35 UNIT SQ (08:24)
[2023-04-24] MEDS: FINASTERIDE 5MG TABLET 5 MG PO (08:24)
--- NOTE | 2023-04-24 08:59 | P.DS_ITS ---
General Admission date:: 04/23/23 Discharge date: 04/24/23 HPI HPI HPI: Mr. Doty is a 62-year-old male with history of diabetes, anxiety, glaucoma, who to the ER are because of worsening weakness in his left upper and lower extremity over the past 2 to 3 days. He also reports some mental status changes and difficulty with word finding. states this began 2 to 3 weeks ago but he states it was just a few days ago. feels that he has been a little off mentally for the past 2 to 3 weeks but the general weakness and falling has occurred over the past 2 to 3 days. He has been developing a foot drag and falling to the left. Denies any chest pain, headache, nausea, vomiting. Did have fever and chills and was diagnosed with the flu little over a week ago. On eval today, CT in the ER concerning for lacunar infarct. Medicine consulted for admission and further management. After arriving to the floor, patient is alert and oriented x 3. Able to speak in complete sentences. Noted to have some mild left-sided deficits. No albert confusion on exam. Able to sit up in bed. Ambulates with assistance. Hospital Course Hospital Course Hospital Course: 62-year-old male with left-sided weakness. Found to have concern for lacunar infarct on CT. ER discussed case with medicine, requested admission for further workup and imaging including MRI and echo. Patient needs PT and OT eval's. Medicine agreed to admit for further management. MRI obtained showing ischemic region in the dacia. Necessitates inpatient admission. Patient did well after therapy eval. Stable for discharge home to continue medical management. Problems addressed as follows: Stroke Left-sided weakness -CT personally reviewed, periventricular white matter lesions. MRI obtained showing abnormal signal in mid dacia. Findings distant with stroke. Formal read on MRI as follows: There is a focus of abnormal signal in the mid dacia measuring 1.5 x 1.3 cm in size. This corresponds with an area of most likely acute versus early subacute ischemia. There are multiple foci of subcortical white matter signal bilaterally, consistent with chronic ischemic/gliotic microvascular disease and/or remote lacunar infarcts. -Patient initiated on aspirin 81 mg daily, Plavix 75 mg daily. Continue dual antiplatelet therapy for 1 month. Weaned to aspirin daily thereafter. Lipid panel obtained showing LDL of 141, initiated on high intensity statin with Lipitor 40 mg daily. PT and OT were consulted during admission. Evaluated patient. Wittman he was stable to discharge home with outpatient therapy. Referred to therapy in [place] for further outpatient management. Stable to discharge home with -Of note, echo obtained with essentially normal findings. No shunting with bubble study. Diabetes -A1c 8.3, this is the best A1c has had in the past year. Still above goal of 7 however. Continue glargine during admission with his home regimen of 26 units. Morning glucose still elevated. Increase to 32 units glargine at discharge. Recommend repeat A1c in 3 months. Continue metformin 1000 mg twice daily. Glaucoma: Continue ketorolac 0.5% eyedrop 3 times daily, dorzolamide/timolol eyedrop twice daily, latanoprost eyedrop daily. Anxiety: Continue citalopram 20 mg daily BPH: Continue finasteride 5 mg daily Exam Data for Last 24 hours Vital signs and Labs for Last 24 Hours: Temp Pulse Resp BP Pulse Ox O2 Del Method 98 F 68 17 136/71 98 Room Air 04/24/23 08:00 04/24/23 08:00 04/24/23 08:00 04/24/23 08:00 04/24/23 08:00 04/24/23 08:30 Laboratory Results - last 24 hr 04/23/23 10:00: WBC 7.0, RBC 5.45, Hgb 15.5, Hct 44.2, MCV 81.1, MCH 28.4, MCHC 35.0, RDW 13.6, Plt Count 399, MPV 8.0, Neut % (Auto) 64.5, Lymph % (Auto) 25.0, [place] % (Auto) 8.3, Eos % (Auto) 1.7, Baso % (Auto) 0.4, Neut # (Auto) 4.5, Lymph # (Auto) 1.8, [place] # (Auto) 0.6, Eos # (Auto) 0.1, Baso # (Auto) 0.0, PT 11.1, INR 1.03, APTT 31.7 H, Sodium 137, Potassium 3.6, Chloride 106, Carbon Dioxide 23, Anion Gap 11.6, BUN 13, Creatinine 1.30 H, Estimated Creat Clear 68, Estimated GFR 56 L, Est GFR ( Amer) 68, Glucose 217 H, Calcium 9.0, Total Bilirubin 0.8, AST 24, ALT 24, Alkaline Phosphatase 74, Troponin I < 0.01, Total Protein 7.6, Albumin 4.3, Globulin 3.3 H, Albumin/Globulin Ratio 1.3, Triglycerides 191 H, Cholesterol 203 H, LDL Cholesterol Direct 141.75 H, VLDL Cholesterol 38, HDL Cholesterol 23 L, Cholesterol/HDL Ratio 8.8 H 04/23/23 11:04: Urine Color Yellow, Urine Appearance Clear, Urine pH 6.0, Ur Specific [place] 1.020, Urine Protein Negative, Urine Glucose (UA) 1+, Urine Ketones Negative, Urine Blood Negative, Urine Nitrate Negative, Urine Bilirubin Negative, Urine Urobilinogen 0.2, Ur Leukocyte Esterase Negative, Urine RBC None, Urine WBC 3-5, Ur Squamous Epith Cells Occasional, Urine Bacteria Trace 04/23/23 13:40: Troponin I < 0.01 04/23/23 16:30: POC Glucose 255 H 04/23/23 16:35: Troponin I < 0.01 04/23/23 20:15: POC Glucose 325 H* 04/24/23 05:33: POC Glucose 181 H 04/24/23 06:35: WBC 5.5, RBC 4.69, Hgb 13.2 L D, Hct 38.4 L, MCV 81.9, MCH 28.2, MCHC 34.4, RDW 13.4, Plt Count 361, MPV 8.0, Neut % (Auto) 57.5, Lymph % (Auto) 33.1, [place] % (Auto) 8.1, Eos % (Auto) 1.0, Baso % (Auto) 0.3, Neut # (Auto) 3.2, Lymph # (Auto) 1.8, [place] # (Auto) 0.4, Eos # (Auto) 0.1, Baso # (Auto) 0.0, Sodium 133 L, Potassium 3.3 L, Chloride 104, Carbon Dioxide 23, Anion Gap 9.3, BUN 8 L D, Creatinine 1.10, Estimated Creat Clear 80, Estimated GFR 68, Est GFR ( Amer) 82 D, Glucose 193 H, Calcium 8.5, Magnesium 1.6, Total Bilirubin 0.8, AST 23, ALT 24, Alkaline Phosphatase 57, Total Protein 6.4, Albumin 3.7 D, Globulin 2.7, Albumin/Globulin Ratio 1.4 I & O for Last 24 hours: Intake & Output 04/21/23 04/22/23 04/23/23 04/24/23 23:59 23:59 23:59 23:59 Intake Total 360 / 660 570 / 570 Output Total 0 / 0 Balance 360 / 660 570 / 570 Weight 78.698 kg 81.675 kg Constitutional Constitutional: no acute distress, average body habitus and chronically ill appearing *Routine HEENT Exam Head: Present normocephalic Eye: Present EOMI and PERRL ENT: Present mucous membranes moist *Routine Neck Exam Neck: Present supple; Absent lymphadenopathy *Routine Respiratory Exam Respiratory: Present CTA bilaterally *Routine Cardiovascular Exam Cardiovascular: Present RRR *Routine Abdominal Exam Abdominal: Present soft and normoactive bowel sounds; Absent tenderness *Routine Extremities Exam Extremities: Absent cyanosis, clubbing or edema *Routine Skin Exam Skin: Present warm; Absent rash *Routine Neurological Exam Neurological: Present alert, oriented X3 and moving all extremities; Absent altered mental status Comments: No word fine difficulty. Strength 5/5 in right upper and lower extremities. 4/5 in left upper extremity, faint deficit in left lower extremity. Results Data Completed and Pending Labs on day of discharge: Labs from last 24 hours 04/24/23 04/24/23 04/23/23 06:35 05:33 20:15 WBC 5.5 RBC 4.69 Hgb 13.2 L D Hct 38.4 L MCV 81.9 MCH 28.2 MCHC 34.4 RDW 13.4 Plt Count 361 MPV 8.0 Neut % (Auto) 57.5 Lymph % (Auto) 33.1 [place] % (Auto) 8.1 Eos % (Auto) 1.0 Baso % (Auto) 0.3 Neut # (Auto) 3.2 Lymph # (Auto) 1.8 [place] # (Auto) 0.4 Eos # (Auto) 0.1 Baso # (Auto) 0.0 PT INR APTT Sodium 133 L Potassium 3.3 L Chloride 104 Carbon Dioxide 23 Anion Gap 9.3 BUN 8 L D Creatinine 1.10 Estimated Creat Clear 80 Estimated GFR 68 Est GFR ( Amer) 82 D Glucose 193 H POC Glucose 181 H 325 H* Calcium 8.5 Magnesium 1.6 Total Bilirubin 0.8 AST 23 ALT 24 Alkaline Phosphatase 57 Troponin I Total Protein 6.4 Albumin 3.7 D Globulin 2.7 Albumin/Globulin Ratio 1.4 Triglycerides Cholesterol LDL Cholesterol Direct VLDL Cholesterol HDL Cholesterol Cholesterol/HDL Ratio Urine Color Urine Appearance Urine pH Ur Specific [place] Urine Protein Urine Glucose (UA) Urine Ketones Urine Blood Urine Nitrate Urine Bilirubin Urine Urobilinogen Ur Leukocyte Esterase Urine RBC Urine WBC Ur Squamous Epith Cells Urine Bacteria 04/23/23 04/23/23 04/23/23 16:35 16:30 13:40 WBC RBC Hgb Hct MCV MCH MCHC RDW Plt Count MPV Neut % (Auto) Lymph % (Auto) [place] % (Auto) Eos % (Auto) Baso % (Auto) Neut # (Auto) Lymph # (Auto) [place] # (Auto) Eos # (Auto) Baso # (Auto) PT INR APTT Sodium Potassium Chloride Carbon Dioxide Anion Gap BUN Creatinine Estimated Creat Clear Estimated GFR Est GFR ( Amer) Glucose POC Glucose 255 H Calcium Magnesium Total Bilirubin AST ALT Alkaline Phosphatase Troponin I < 0.01 < 0.01 Total Protein Albumin Globulin Albumin/Globulin Ratio Triglycerides Cholesterol LDL Cholesterol Direct VLDL Cholesterol HDL Cholesterol Cholesterol/HDL Ratio Urine Color Urine Appearance Urine pH Ur Specific [place] Urine Protein Urine Glucose (UA) Urine Ketones Urine Blood Urine Nitrate Urine Bilirubin Urine Urobilinogen Ur Leukocyte Esterase Urine RBC Urine WBC Ur Squamous Epith Cells Urine Bacteria 04/23/23 04/23/23 11:04 10:00 WBC 7.0 RBC 5.45 Hgb 15.5 Hct 44.2 MCV 81.1 MCH 28.4 MCHC 35.0 RDW 13.6 Plt Count 399 MPV 8.0 Neut % (Auto) 64.5 Lymph % (Auto) 25.0 [place] % (Auto) 8.3 Eos % (Auto) 1.7 Baso % (Auto) 0.4 Neut # (Auto) 4.5 Lymph # (Auto) 1.8 [place] # (Auto) 0.6 Eos # (Auto) 0.1 Baso # (Auto) 0.0 PT 11.1 INR 1.03 APTT 31.7 H Sodium 137 Potassium 3.6 Chloride 106 Carbon Dioxide 23 Anion Gap 11.6 BUN 13 Creatinine 1.30 H Estimated Creat Clear 68 Estimated GFR 56 L Est GFR ( Amer) 68 Glucose 217 H POC Glucose Calcium 9.0 Magnesium Total Bilirubin 0.8 AST 24 ALT 24 Alkaline Phosphatase 74 Troponin I < 0.01 Total Protein 7.6 Albumin 4.3 Globulin 3.3 H Albumin/Globulin Ratio 1.3 Triglycerides 191 H Cholesterol 203 H LDL Cholesterol Direct 141.75 H VLDL Cholesterol 38 HDL Cholesterol 23 L Cholesterol/HDL Ratio 8.8 H Urine Color Yellow Urine Appearance Clear Urine pH 6.0 Ur Specific [place] 1.020 Urine Protein Negative Urine Glucose (UA) 1+ Urine Ketones Negative Urine Blood Negative Urine Nitrate Negative Urine Bilirubin Negative Urine Urobilinogen 0.2 Ur Leukocyte Esterase Negative Urine RBC None Urine WBC 3-5 Ur Squamous Epith Cells Occasional Urine Bacteria Trace DS: Diagnosis Discharge Diagnosis (1) Stroke: Status: Acute Code(s): I63.9 - Cerebral infarction, unspecified Qualifiers: CVA mechanism: other Qualified Code(s): I63.89 - Other cerebral infarction (2) Left-sided weakness: Status: Acute Code(s): R53.1 - Weakness (3) DM2 (diabetes mellitus, type 2): Status: Acute Code(s): E11.9 - Type 2 diabetes mellitus without complications Qualifiers: Diabetes mellitus complication detail: with chronic kidney disease Diabetes mellitus complication status: with kidney complications Diabetes mellitus press tender long goods insulin use: with longterm use (4) Hypertension: Status: Acute Code(s): I10 - Essential (primary) hypertension Qualifiers: Hypertension type: primary hypertension Qualified Code(s): I10 - Essential (primary) hypertension (5) BPH (benign prostatic hyperplasia): Status: Acute Code(s): N40.0 - Benign prostatic hyperplasia without lower urinary tract symptoms Qualifiers: Lower urinary tract symptom presence: symptoms present (6) Glaucoma: Status: Acute Code(s): H40.9 - Unspecified glaucoma Qualifiers: Glaucoma type: unspecified Meds Home Medications and Allergies Home Medications Medication Instructions Recorded Confirmed Type hydrocodone 10 mg-acetaminophen 1 tab PO BID PRN Pain (Scale Score 01/16/22 04/23/23 History 325 mg tablet 4-6) needle (disp) 31 gauge 31 gauge x #100 ea 05/04/22 04/23/23 Rx 16 blood sugar diagnostic (Blood #100 ea 10/12/22 04/23/23 Rx Glucose Test strips) blood-glucose meter (Blood Glucose #1 ea 10/12/22 04/23/23 Rx Monitoring kit) lancets #100 ea 10/12/22 04/23/23 Rx blood-glucose meter (OneTouch #1 ea 12/26/22 04/23/23 History Ultra2 Meter) lancets 33 gauge (OneTouch Delica #100 ea 12/26/22 04/23/23 History Plus Lancet) promethazine 25 mg tablet 25 mg PO Q6H PRN nausea and 12/26/22 04/23/23 Rx vomiting #20 tabs citalopram 20 mg tablet (Celexa) 20 mg PO DAILY 90 days #90 tabs 01/28/23 Rx finasteride 5 mg tablet 5 mg PO DAILY 90 days #90 tabs 01/28/23 04/23/23 Rx glipizide 5 mg tablet 5 mg PO BID 90 days #180 tabs 01/28/23 04/23/23 Rx metformin 500 mg tablet,extended 1,000 mg PO BID diabetes 90 days 01/28/23 04/23/23 Rx release 24 hr #360 tabs omeprazole 20 mg capsule,delayed 20 mg PO DAILY GERD 90 days #90 01/28/23 04/23/23 Rx release caps dorzolamide 22.3 mg-timolol 6.8 1 drp Eye-Both BID 04/19/23 04/23/23 History mg/mL eye drops ketorolac 0.5 % eye drops 1 drp Eye-Both BID 04/19/23 04/24/23 History latanoprost 0.005 % eye drops 1 drp Eye-Both DAILY 04/19/23 04/23/23 History aspirin 81 mg chewable tablet 81 mg PO DAILY 30 days #30 tabs 04/24/23 Rx atorvastatin 40 mg tablet 40 mg PO HS 30 days #30 tabs 04/24/23 Rx clopidogrel 75 mg tablet 75 mg PO DAILY 30 days #30 tabs 04/24/23 Rx insulin glargine 100 unit/mL (3 32 unit (0.32 mL) SQ DAILY 30 days 04/24/23 Rx mL) subcutaneous pen (Lantus #9.6 mL Solostar U-100 Insulin) New Prescriptions to Start Prescriptions: Josh Mcgraw atorvastatin Josh Ramirez clopidogrel Josh Ramirez insulin glargine [Lantus Solostar U-100 Insulin] Josh Ramirez Allergies Allergy/AdvReac Type Severity Reaction Status Date / Time cefaclor [From [facility]] Allergy Unknown Verified 04/19/23 11:24 Discharge Plan Disposition Patient Disposition: Home, Self-Care Condition: Fair Discharge Order Discharge Orders: Discharge Order (Routine); Ordered 04/24/23 Ordered By: Josh Ramirez Follow up Plan Follow up with: Tam Erazo MD [Primary Care Provider] - 05/03/23 9:30 am Prescriptions/Medication Reconciliation: New insulin glargine [Lantus Solostar U-100 Insulin] 100 unit/mL (3 mL) Insulin Pen 32 unit SQ DAILY 30 Days Qty: 9.6 0RF atorvastatin 40 mg Tablet 40 mg PO HS 30 Days Qty: 30 0RF clopidogrel 75 mg Tablet 75 mg PO DAILY 30 Days Qty: 30 0RF aspirin 81 mg Tablet,Chewable 81 mg PO DAILY 30 Days Qty: 30 0RF Continued dorzolamide-timolol 22.3-6.8 mg/mL drops 1 drp Eye-Both BID ketorolac 0.5 % drops 1 drp Eye-Both BID latanoprost 0.005 % drops 1 drp Eye-Both DAILY hydrocodone-acetaminophen 10-325 mg tablet 1 tab PO BID PRN (Reason: Pain (Scale Score 4-6)) (DME) blood-glucose meter [Blood Glucose Monitoring] Kit See Rx Instructions .Route Qty: 1 0RF Rx Instructions: As directed (DME) Blood Glucose Test Strip See Rx Instructions .Route Qty: 100 3RF Rx Instructions: Pt is to test BID prn (DME) lancets Misc See Rx Instructions .Route Qty: 100 3RF Rx Instructions: Pt is to test BID prn (DME) lancets [OneTouch Delica Plus Lancet] 33 gauge misc See Rx Instructions .ROUTE .MEDSUPPLY Qty: 100 Patient Comments: USE 1 LANCET TO CHECK GLUCOSE TWICE DAILY NEEDED FOR DIABETES Rx Instructions: As directed (DME) blood-glucose meter [OneTouch Ultra2 Meter] Mis See Rx Instructions .ROUTE .MEDSUPPLY Qty: 1 Patient Comments: USE DIRECTED FOR DIABETES Rx Instructions: As directed promethazine 25 mg tablet 25 mg PO Q6H PRN (Reason: nausea and vomiting) Qty: 20 2RF Rx Instructions: Pt stated he does not use often (DME) needle (disp) 31 gauge 31 gauge x 5/16 needle See Rx Instructions .Route Qty: 100 1RF Rx Instructions: As directed citalopram [Celexa] 20 mg tablet 20 mg PO DAILY 90 Days Qty: 90 0RF finasteride 5 mg tablet 5 mg PO DAILY 90 Days Qty: 90 0RF glipizide 5 mg tablet 5 mg PO BID 90 Days Qty: 180 0RF metformin 500 mg tablet extended release 24 hr 1,000 mg PO BID 90 Days Qty: 360 0RF omeprazole 20 mg capsule,delayed release(DR/EC) 20 mg PO DAILY 90 Days Qty: 90 0RF Discontinued azithromycin 500 mg tablet 500 mg PO DAILY Qty: 10 0RF Rx Instructions: x 10 DAYS FROM 04/19 sulfamethoxazole-trimethoprim 800-160 mg tablet 1 tab PO BID Qty: 20 0RF Rx Instructions: X 10 DAYS FROM 04/19 insulin glargine 100 unit/mL (3 mL) insulin pen 26 unit SQ DAILY 30 Days Qty: 7.8 4RF Other Ambulatory Orders: Rehab Eval, OP (Routine) Timeframe: 1 Week Facility: [facility] - Location: Physical Therapy Ordered By: Josh Ramirez Problem Reconciliation Problems Reviewed?: Yes Patient Discharge Instructions ACTIVITY: Continue current activity DIET: diabetic diet Patient Instructions: DI for Stroke-Ischemic Providers Primary Care Provider: Tam Erazo Admit Provider: Josh Ramirez Attending Provider: Josh Ramirez
--- NOTE | 2023-04-24 09:57 | SW/DCPLANNER ---
I spoke w/ this patient regarding plans once medically stable for discharge. PT/OT evaluated patient and recommended returning home w/ home health or outpatient PT. Patient stated that he resides in [place] and would prefer to return to outpatient clinic. Patient has been set up w/ an appointment for outpatient PT in [place]. Patient stated that he has all appropriate DME at home. Patient will discharge home today.
--- NOTE | 2023-04-25 13:10 | CARE MANAGER ---
Contacted patient related to hospital discharge. Patient states he picked up medication and is aware of follow up appointment with PCP. He made his PT appointment as well. Denies questions or concerns. CHAPITO Mathews
== END 2023-04-24 09:57 | disposition home or self-care (01) ==
LOC: ER 12:25 → 2ND 13:17
PROVIDERS: Admitting Provider Internal Medicine Adolescent Medicine; Emergency Provider Student in an Organized Health Care Education/Training Program; PCP Family Medicine; Visit Provider Internal Medicine Adolescent Medicine
DX: I63.89 Other cerebral infarction (principal); R53.1 Weakness; E11.9 Type 2 diabetes mellitus without complications; I10 Essential (primary) hypertension; N40.0 Benign prostatic hyperplasia without lower urinary tract symptoms; H40.9 Unspecified glaucoma; Z79.4 Long term (current) use of insulin
CPT/HCPCS: 36415; 70450; 70496; 70498; 70551; 80053; 80061; 81001; 82962; 83735; 84484; 85025; 85610; 85730; 93005; 93306; 97163; 97166; 97530; 99285; G0378; Q9967

== ENCOUNTER 2023-05-23 08:00 | Outpatient (RCR) | payer MEDICARE, SELFPAY ==
--- NOTE | 2023-05-06 12:20 | HMH.PTOPEV ---
PT Outpatient Evaluation Rehab PT Outpatient Evaluation Start: 05/06/23 07:52 Freq: Status: Active Protocol: Document 05/06/23 07:52 PDESEROUX (Rec: 05/06/23 09:05 [email or web address] [id number]) E-signed By Robles Foster, PT Outpatient Therapy Subjective History Subjective History Pt. is a 62 year old male who presents to [facility] Outpatient Physical Therapy Services in [place] for the initial evaluation this date(05/06/23) w/ c/o acute and constant L- sided weakness, unsteadiness, and falls d/t Cerebral Infarction 3 weeks ago. Pt. reports waking up on morning 3 weeks ago and noticed he was swaying and falling from side to side, therefore, went to the emergency room for fear of a stroke. Pt. reports, since the Cerebral Infarction , having more falls, increased imbalance/unsteadiness on his feet, and having difficulty w / buttoning up his shirts. Pt. and pt.'s caregiver received education on the acronym FAST this date. Pt. reports requiring assistance w/ ADLs sometimes since the Cerebral Infarction. Current medication list includes Aspirin, Omeprazole, Citalopram, Metformin, Insulin, and a Beta -Blcoker. PMH includes HTN, BPH(benign prostatic hyperplasia), CVA, old, cognitive deficits, Depression , DM2 (diabetes mellitus, type 2), Hypertension, chronic LBP !, S/P RLE TKA, S/P BUE CTS release. New diagnosis of cancer in past 12 No months? Chief Complaint Gives out/Unstable,Paresthesia ,Weakness,Decreased Coordination Symptom Type Numbness,Tingling,Shooting, Other Symptoms Relieved By Rest/Positioning Symptoms Aggravated By Standing,Bending/Stooping, Physical Activity,Walking, Lifting Prior Functional Limitations None Current Functional Limitations Lifting,Dressing,Standing, Recreation Activity,Walking, Stairs,Balance,Bending/ Stooping Symptom Description Intermittent,Activity Dependent Level of pain today (0-10) 0 Pain scale - at its best (0-10) 0 Pain scale - at its worst (0-10) 0 Shoulder/Elbow Eval Shoulder Objective Measurements Shoulder MMT Left Anterior Deltoid Strength Grade 4- Good- Shoulder Abduction Strength Grade 4- Good- Shoulder Flexion Strength Grade 4- Good- Middle Deltoid Strength Strength Grade 4- Good- Elbow Objective Measurements Elbow MMT Left Elbow Flexion Strength Grade 3+ Fair+ Biceps Brachii Strength Grade 3+ Fair+ Brachioradialis Strength Grade 3+ Fair+ Brachialis Strength Grade 3+ Fair+ Brachialis Strength Grade (Flexion) 3+ Fair+ Elbow Extension Strength Grade 3+ Fair+ Triceps Brachii Strength Grade 3+ Fair+ Supination Strength Grade 3+ Fair+ Pronation Strength Grade 3+ Fair+ Outpatient Therapy Assessment Impairments Problems/Impairmments Impaired Range of Motion, Impaired Strength,Impaired Endurance,Impaired Transfers, Impaired Gait Pattern,Impaired Walking,Impaired Standing, Impaired Lifting,Impaired Dressing,Impaired Shower/ Bathing,Impaired Stair Climbing,Impaired Incline Stepping,Impaired Stepping on Uneven Surface,Impaired Bending,Impaired Recreational Activities,Impaired Balance, Impaired Tinnetti Score, Impaired Self Care/Self Management Prognosis Rehab Potential Good Comment w/ HEP compliancy Clinical Impression Consistent with Diagnosis Yes Consistent with Cerebral Infarction Short Term Goals Number of Weeks 2 Improve Self Care/Self Management Yes: denies fall Patient to be Ind w/ HEP Yes Accountant Helper Goals Number of Weeks 4-6 Increase Strength Yes: LUE/LLE 4+ to 5/5 MMT scores grossly Improve Transfers Yes: sit<>stand, dynamic transitions w/ gait safely and w/o difficulty Improve Gait Pattern with Assistive Yes: dynamic transitions w/ Device gait safely and w/o difficulty Improve Gait Pattern without Assistive Yes: dynamic transitions w/ Device gait safely and w/o difficulty Increase Ability to Walk Yes Increase Ability to Stand Yes Improve Ability to Dress Self Yes: Pt. will be able to button shirt w/o difficulty Improve Ability to Shower/Bathe Self Yes Improve Ability to Climb Stairs Yes: Pt. will be able to negotiate steps into/out of house IND./safely/w/o diffi Improve Balance Yes Increase Tinnetti Score Yes Improve Quick Dash Score Yes Improve LEFI Score Yes Patient to be Ind w/ Advanced HEP Yes Outpatient Therapy Plan of Care Treatment Plan May Include Therapeutic Exercise Including Home Yes Exercise Program Manual Therapy Techniques Yes Neuromuscular Re-education Yes Therapeutic Activities to Return to Yes Previous Functional/Work Level Gait Training Yes ADL/Self Care Education Yes Eval/Re-Eval Yes Frequency Times per week 2 Duration Number of Weeks 4-6 Addendums This patient is a candidate for social No or vocational rehab? Patient/Guardian verbally acknowledges Yes understanding of treatment program and consents to further treatment? Patient/Guardian verbally acknowledges Yes understanding of diagnosis, prognosis and goals for treatment? Eval Complexity PT Charges 36255 - Moderate Complexity PHYSICIAN CERTIFICATION: I certify the specified therapy services for José Miguel Doty JR are required, authorized, and reviewed every 30 days.
== END 2023-06-12 14:45 | disposition home or self-care (01) ==
LOC: PT 08:00
PROVIDERS: PCP Family Medicine; Visit Provider Internal Medicine Adolescent Medicine
DX: I63.9 Cerebral infarction, unspecified (principal)
CPT/HCPCS: 97110; 97112; 97163; 97530

== ENCOUNTER 2023-05-28 14:30 | Emergency (ER) | payer MEDICARE, SELFPAY ==
[2023-05-28 14:31] VITALS: BP 171/99; PULSE 80; RESP 18; TEMP 36.5; O2SAT 97; BMI 30.2
[2023-05-28 14:34] VITALS: BP 160/93; PULSE 85; O2SAT 97
[2023-05-28 14:40] VITALS: BP 171/99; PULSE 81; O2SAT 97
--- NOTE | 2023-05-28 14:41 | HMH.EDGENADL ---
Discharge Plan Disposition Chief Complaint: Urogenital-Male Prescriptions Prescriptions: No Action hydrocodone-acetaminophen 10-325 mg tablet 1 tab PO BID PRN (Reason: Pain (Scale Score 4-6)) (DME) blood-glucose meter [Blood Glucose Monitoring] Kit See Rx Instructions .Route Qty: 1 0RF Rx Instructions: As directed (DME) Blood Glucose Test Strip See Rx Instructions .Route Qty: 100 3RF Rx Instructions: Pt is to test BID prn (DME) lancets Misc See Rx Instructions .Route Qty: 100 3RF Rx Instructions: Pt is to test BID prn (DME) lancets [OneTouch Delica Plus Lancet] 33 gauge misc See Rx Instructions .ROUTE .MEDSUPPLY Qty: 100 Patient Comments: USE 1 LANCET TO CHECK GLUCOSE TWICE DAILY NEEDED FOR DIABETES Rx Instructions: As directed (DME) blood-glucose meter [OneTouch Ultra2 Meter] Mis See Rx Instructions .ROUTE .MEDSUPPLY Qty: 1 Patient Comments: USE DIRECTED FOR DIABETES Rx Instructions: As directed promethazine 25 mg tablet 25 mg PO Q6H PRN (Reason: nausea and vomiting) Qty: 20 2RF Rx Instructions: Pt stated he does not use often (DME) needle (disp) 31 gauge 31 gauge x 5/16 needle See Rx Instructions .Route Qty: 100 1RF Rx Instructions: As directed peg 3350-electrolytes [GaviLyte-G] 236-22.74-6.74 -5.86 gram recon soln 240 ml PO Q10M Qty: 4000 0RF Rx Instructions: follow mailed instructions sulfamethoxazole-trimethoprim 800-160 mg tablet 1 tab PO BID Qty: 20 0RF citalopram [Celexa] 20 mg tablet 20 mg PO DAILY 90 Days Qty: 90 0RF finasteride 5 mg tablet 5 mg PO DAILY 90 Days Qty: 90 0RF glipizide 5 mg tablet 5 mg PO BID 90 Days Qty: 180 0RF clopidogrel 75 mg tablet 75 mg PO DAILY 90 Days Qty: 90 0RF atorvastatin 40 mg tablet 40 mg PO HS 90 Days Qty: 90 0RF metformin 500 mg tablet extended release 24 hr 500 mg PO BID 90 Days Qty: 180 0RF omeprazole 20 mg capsule,delayed release(DR/EC) 20 mg PO DAILY 90 Days Qty: 90 0RF insulin glargine [Lantus Solostar U-100 Insulin] 100 unit/mL (3 mL) insulin pen 65 unit SQ DAILY 30 Days Qty: 19.5 2RF (DME) Dexcom G6 Vice President For Instruction Misc See Rx Instructions .Route Qty: 1 0RF Rx Instructions: As directed (DME) Dexcom G6 Sensor Device See Rx Instructions .Route Qty: 3 1RF Rx Instructions: As directed (DME) Dexcom G6 Transmitter Device See Rx Instructions .Route Qty: 1 0RF Rx Instructions: As directed (DME) OneTouch Ultra Test Strip See Rx Instructions .Route Qty: 100 2RF Rx Instructions: As directed aspirin 81 mg Tablet,Chewable 81 mg PO DAILY 30 Days Qty: 30 0RF Referrals Follow up/Referrals: Tam Erazo MD [Primary Care Provider] - See instructions Instructions Patient Instructions: DI for Urinary Tract Infection (UTI), DI for Urinary Tract Infection in Children Discharge ED Provider: Dilan Corbett General Adult HPI General Chief complaint: Urogenital-Male Stated complaint: uncontrollable urine Time Seen by Provider: 05/28/23 14:41 History of Present Illness HPI narrative: Patient has a PMHx significant for diabetes, BPH, recent CVA who presents to the ED with complaints of urinary incontinence. Patient notes that ever since her stroke, he has been having urinary incontinence, noting multiple instances daily. Patient notes that he feels urge to go to the bathroom but by the time he makes it to the toilet he loses control of his bladder once himself. Patient notes that he saw his primary care doctor regarding this issue and completed course of antibiotics for possible UTI. Patient denies any fevers, chills, abdominal pain, nausea, vomiting. Patient denies any back pain, saddle anesthesia, issues with fecal incontinence/retention, numbness, tingling to lower extremities. notes that ever since his CVA in March, he has been having issues ambulating at home with a few falls in the past few weeks Related Data Home Medications Medication Instructions Recorded Confirmed hydrocodone 10 mg-acetaminophen 1 tab PO BID PRN Pain (Scale Score 01/16/22 05/09/23 325 mg tablet 4-6) blood-glucose meter (OneTouch #1 ea 12/26/22 05/09/23 Ultra2 Meter) lancets 33 gauge (OneTouch Delica #100 ea 12/26/22 05/09/23 Plus Lancet) Previous Rx's Medication Instructions Recorded needle (disp) 31 gauge 31 gauge x #100 ea 05/04/2209/11 blood sugar diagnostic (Blood #100 ea 10/12/22 Glucose Test strips) blood-glucose meter (Blood Glucose #1 ea 10/12/22 Monitoring kit) lancets #100 ea 10/12/22 promethazine 25 mg tablet 25 mg PO Q6H PRN nausea and 12/26/22 vomiting #20 tabs aspirin 81 mg chewable tablet 81 mg PO DAILY 30 days #30 tabs 04/24/23 peg 3350-electrolytes 236 240 ml PO Q10M #4,000 mL 05/09/23 gram-22.74 gram-6.74 gram-5.86 gram solution (GaviLyte-G) sulfamethoxazole 800 1 tab PO BID #20 tabs 05/14/23 mg-trimethoprim 160 mg tablet atorvastatin 40 mg tablet 40 mg PO HS 90 days #90 tabs 05/20/23 citalopram 20 mg tablet (Celexa) 20 mg PO DAILY 90 days #90 tabs 05/20/23 clopidogrel 75 mg tablet 75 mg PO DAILY 90 days #90 tabs 05/20/23 finasteride 5 mg tablet 5 mg PO DAILY 90 days #90 tabs 05/20/23 glipizide 5 mg tablet 5 mg PO BID 90 days #180 tabs 05/20/23 metformin 500 mg tablet,extended 500 mg PO BID diabetes 90 days 05/20/23 release 24 hr #180 tabs omeprazole 20 mg capsule,delayed 20 mg PO DAILY GERD 90 days #90 05/20/23 release caps blood-glucose meter,continuous #1 ea 05/23/23 (Dexcom G6 Vice President For Instruction) blood-glucose sensor (Dexcom G6 #3 ea 05/23/23 Sensor device) blood-glucose transmitter (Dexcom #1 ea 05/23/23 G6 Transmitter device) insulin glargine 100 unit/mL (3 65 unit (0.65 mL) SQ DAILY 30 days 05/23/23 mL) subcutaneous pen (Lantus #19.5 mL Solostar U-100 Insulin) blood sugar diagnostic (OneTouch #100 ea 05/28/23 Ultra Test strips) Allergies Allergy/AdvReac Type Severity Reaction Status Date / Time cefaclor [From [facility]] Allergy Unknown Verified 05/28/23 14:45 [facility] Disclaimer: The information contained in this section may have been updated after the patient was seen, as this information can be updated by other users. Medical History BPH (benign prostatic hyperplasia) CVA, old, cognitive deficits Depression DM2 (diabetes mellitus, type 2) Family history of colon cancer requiring screening colonoscopy Hypertension Low back pain Surgical History History of knee replacement procedure of right knee Family History Father Heart attack Grandfather Heart attack Mother Cancer Social History Smoking Status: Never smoker alcohol intake: never substance use type: denies use current occupational status: disabled Travel in the last 8 weeks: None household members: spouse housing: house ROS Obtained: Yes All systems reviewed & no additional complaints except as documented Physical Exam General General appearance: alert and in no apparent distress Head Head exam: atraumatic, normocephalic and normal inspection Eye Eye exam: Present normal appearance, PERRL and EOMI; Absent scleral icterus or nystagmus ENT ENT exam: Present normal exam, mucous membranes moist and normal external ear exam Neck Neck exam: Present normal inspection, full ROM and trachea midline Chest Chest inspection: Present normal inspection and symmetric chest wall rise; Absent tenderness Respiratory Respiratory exam: Present normal lung sounds bilaterally; Absent respiratory distress, wheezes or accessory muscle use Cardiovascular Cardiovascular exam: Present regular rate, normal rhythm and normal heart sounds Abdominal Exam Abdominal exam: Present soft; Absent distention, tenderness, guarding, rebound, rigidity, trauma, ascites or pulsatile mass exam: Present deferred Extremities Exam Extremities exam: Present normal inspection and full ROM; Absent tenderness Back Exam Back exam: Present normal inspection and full ROM; Absent tenderness Neurological Exam Neurological exam: Present alert, oriented X3 and normal gait; Absent motor sensory deficit Psychiatric Psychiatric exam: Present normal affect and normal mood Skin Skin exam: Present warm, dry and normal color Medical Decision Making Medical Records Medical records reviewed: Yes I reviewed the patient's medical records. [place] Inquiry Pt receiving controlled substance: No Vital Signs: 05/28/23 14:31 Temperature 97.7 F Temperature Source Oral Pulse Rate [Left Radial] 80 Respiratory Rate 18 Blood Pressure [Right Arm] 171/99 H Blood Pressure Mean [Right Arm] 123 Blood Pressure Source [Right Arm] Automatic Cuff Blood Pressure Position [Right Arm] Sitting 02 Sat by Pulse Oximetry 97 Oxygen Delivery Method Room Air Lab Data Lab results reviewed: Yes I reviewed the patient's lab results. Orders (Tests/Meds): ORDERS Category Date Time Status CBC w/Auto Diff [Complete Blood Count Auto Diff] Stat Lab 05/28/23 14:41 Ordered CMP [Comprehensive Metabolic Panel] Stat Lab 05/28/23 14:41 Ordered Urinalysis and Microscopic Stat Lab 05/28/23 14:41 Ordered Medical Decision Narrative: In summary, Patient has a PMHx significant for diabetes, BPH, recent CVA who presents to the ED with complaints of urinary incontinence. Patient notes that ever since her stroke, he has been having urinary incontinence, noting multiple instances daily. Patient notes that he feels urge to go to the bathroom but by the time he makes it to the toilet he loses control of his bladder once himself. Patient notes that he saw his primary care doctor regarding this issue and completed course of antibiotics for possible UTI. Patient denies any fevers, chills, abdominal pain, nausea, vomiting. Patient denies any back pain, saddle anesthesia, issues with fecal incontinence/retention, numbness, tingling to lower extremities. notes that ever since his CVA in March, he has been having issues ambulating at home with a few falls in the past few weeks. Patient was afebrile, hemodynamically stable, in no respiratory distress, and nontoxic in appearance upon arrival and throughout the entire stay in the ED. Physical examination was unremarkable, including lungs CTAB, normal cardiac auscultation, benign abdominal exam with no focal TTP, and no acute neurological deficit. The DDx includes, but is not limited to, stress incontinence urgency incontinence, overflow incontinence, mixed urinary incontinence, UTI, medication side effect, diabetic neuropathy, BPH, cauda equina syndrome, NPH. All of these have been considered, however ruling out the most morbid conditions drove my clinical assessment and thus the following laboratory and/or radiographic evaluation was conducted to the appropriate extent based on history and physical examination. All ordered laboratory studies independently reviewed and interpreted by myself and pertinent for: [] EKG independently reviewed and interpreted as follows: [] X-ray/CT/US studies independently reviewed and interpreted by myself and notable for: [] Interventions/Medications Received in the ED: [] Reassessment: On re-evaluation of patient, patient endorsed significant improvement of symptoms. [] Consults: At this time it was felt that the patient should be evaluated by [] for possible admission. After I had an interactive discussion with the team, [] assumed primary responsibility for patient care and agreed to admit the patient to their service. At this time, given unremarkable workup and/or symptomatic relief, as well as the fact that patient continued to remain well-appearing, it was felt that the patient was safe to be discharged home. I considered (and discussed through shared decision making) the utility of treatment with a prescription for [] and the patient was agreeable. The patient/parents were comfortable and in agreement with this plan. Patient instructed to follow up with [facility]/PCP. The patient/parents were given strict return precautions prior to being discharged from the emergency department. All questions were answered. At this time, patient's care was transferred to the incoming DrDo []. Patient's disposition is pending remainder of workup or the recommendations of the consulted service. Dilan Corbett MD Emergency Medicine Critical Care Critical Care Time Critical Care Time: No
--- NOTE | 2023-05-28 14:47 | CT_ITS ---
FINAL REPORT CLINICAL HISTORY: R/O NPH, urinary incontinence, falls, recent CVA COMPARISON: 04/23/2023 FINDINGS: Mild atrophy and chronic ischemic white matter changes are noted, stable since the prior CT. No cortical edema is present. There are chronic lacunar infarcts in the basal ganglia bilaterally, as well as a small low-density in the right dacia, also likely a chronic lacunar infarct. There is no mass or hemorrhage. Ventricles are normal. Bone windows show no skull fracture or obvious obstructive lesion. IMPRESSION: 1. No acute intracranial abnormality or obvious mass. 2. Mild atrophy and chronic ischemic white matter changes as above. Reviewed, Interpreted and Dictated by Lissette Guillen MD Transcribed by Laila Mijares Authenticated and [facility]
--- NOTE | 2023-05-28 14:49 | HMH.EDGENADL ---
Discharge Plan Disposition Patient Disposition: Still a Patient Condition: Good Prescriptions Prescriptions: No Action hydrocodone-acetaminophen 10-325 mg tablet 1 tab PO BID PRN (Reason: Pain (Scale Score 4-6)) (DME) blood-glucose meter [Blood Glucose Monitoring] Kit See Rx Instructions .Route Qty: 1 0RF Rx Instructions: As directed (DME) Blood Glucose Test Strip See Rx Instructions .Route Qty: 100 3RF Rx Instructions: Pt is to test BID prn (DME) lancets Misc See Rx Instructions .Route Qty: 100 3RF Rx Instructions: Pt is to test BID prn (DME) lancets [OneTouch Delica Plus Lancet] 33 gauge misc See Rx Instructions .ROUTE .MEDSUPPLY Qty: 100 Patient Comments: USE 1 LANCET TO CHECK GLUCOSE TWICE DAILY NEEDED FOR DIABETES Rx Instructions: As directed (DME) blood-glucose meter [OneTouch Ultra2 Meter] Misc See Rx Instructions .ROUTE .MEDSUPPLY Qty: 1 Patient Comments: USE DIRECTED FOR DIABETES Rx Instructions: As directed promethazine 25 mg tablet 25 mg PO Q6H PRN (Reason: nausea and vomiting) Qty: 20 2RF Rx Instructions: Pt stated he does not use often (DME) needle (disp) 31 gauge 31 gauge x 5/16 needle See Rx Instructions .Route Qty: 100 1RF Rx Instructions: As directed peg 3350-electrolytes [GaviLyte-G] 236-22.74-6.74 -5.86 gram recon soln 240 ml PO Q10M Qty: 4000 0RF Rx Instructions: follow mailed instructions sulfamethoxazole-trimethoprim 800-160 mg tablet 1 tab PO BID Qty: 20 0RF citalopram [Celexa] 20 mg tablet 20 mg PO DAILY 90 Days Qty: 90 0RF finasteride 5 mg tablet 5 mg PO DAILY 90 Days Qty: 90 0RF glipizide 5 mg tablet 5 mg PO BID 90 Days Qty: 180 0RF clopidogrel 75 mg tablet 75 mg PO DAILY 90 Days Qty: 90 0RF atorvastatin 40 mg tablet 40 mg PO HS 90 Days Qty: 90 0RF metformin 500 mg tablet extended release 24 hr 500 mg PO BID 90 Days Qty: 180 0RF omeprazole 20 mg capsule,delayed release(DR/EC) 20 mg PO DAILY 90 Days Qty: 90 0RF insulin glargine [Lantus Solostar U-100 Insulin] 100 unit/mL (3 mL) insulin pen 65 unit SQ DAILY 30 Days Qty: 19.5 2RF (DME) Dexcom G6 Contour Grinder Misc See Rx Instructions .Route Qty: 1 0RF Rx Instructions: As directed (DME) Dexcom G6 Sensor Device See Rx Instructions .Route Qty: 3 1RF Rx Instructions: As directed (DME) Dexcom G6 Transmitter Device See Rx Instructions .Route Qty: 1 0RF Rx Instructions: As directed (DME) OneTouch Ultra Test Strip See Rx Instructions .Route Qty: 100 2RF Rx Instructions: As directed aspirin 81 mg Tablet,Chewable 81 mg PO DAILY 30 Days Qty: 30 0RF Referrals Follow up/Referrals: Tam Erazo MD [Primary Care Provider] - See instructions Activity Restrictions/Add. Instructions Additional Instructions/Restrictions: No emergent medical condition identified today your symptoms are consistent with a complication of stroke please follow-up with primary care doctor regarding this. No emergent medical intervention indicated at the moment. Clinical Impressions Clinical Impression: Urinary incontinence as sequela of cerebrovascular accident (CVA) Instructions Patient Instructions: Urinary Incontinence -- Male Discharge ED Provider: Dilan Corbett General Adult HPI <Dilan Corbett MD - Last Filed: 05/28/23 14:54> General Chief complaint: Urogenital-Male Stated complaint: uncontrollable urine Time Seen by Provider: 05/28/23 14:41 Mode of Arrival: Ambulatory Source of Information: Patient Limitations: No Limitations Description of Symptoms (Recalled from ER Triage Doc. by RN): PT REPORTS URINARY INCONTINENCE THAT HAS BEEN OCCURING SINCE HE HAD A STROKE IN 03/2023, STATES HE GETS THE URGE TO GO THEN WE HE GETS UP TO GO HE URINATES ALL OVER HIMSELF, DENIES BLOOD IN URINE, DENIES BURNING WITH URINATION, DENIES PAIN, STATES PCP THROUGH IT WAS AN INFECTION AND RECENTLY TREATED HIM FOR IT History of Present Illness HPI narrative: Patient has a PMHx significant for recent stroke, diabetes, hypertension, BPH who presents to the ED with complaints of urinary incontinence. Patient notes that ever since his stroke in March, he has been having issues with urinary incontinence. Patient notes that he is having multiple episodes a day where he feels urge to urinate but by the time he makes to the bathroom has lost control of his bladder and wets himself. Patient denies any recent fevers, chills, back pain, saddle anesthesia, issues with fecal incontinence or retention, numbness and tingling in lower extremities. Patient denies any issues with urinary incontinence prior to his CVA. Over the past few weeks, patient has also had some issues with his gait, noting a few falls. Patient saw his primary care doctor regarding this issue who started the patient on antibiotic due to concerns for UTI, but despite finishing the antibiotics he has not had any improvement of symptoms. Related Data Home Medications Medication Instructions Recorded Confirmed hydrocodone 10 mg-acetaminophen 1 tab PO BID PRN Pain (Scale Score 01/16/22 05/28/23 325 mg tablet 4-6) blood-glucose meter (OneTouch #1 ea 12/26/22 05/28/23 Ultra2 Meter) lancets 33 gauge (OneTouch Delica #100 ea 12/26/22 05/28/23 Plus Lancet) Previous Rx's Medication Instructions Recorded needle (disp) 31 gauge 31 gauge x #100 ea 05/04/2209/11 blood sugar diagnostic (Blood #100 ea 10/12/22 Glucose Test strips) blood-glucose meter (Blood Glucose #1 ea 10/12/22 Monitoring kit) lancets #100 ea 10/12/22 promethazine 25 mg tablet 25 mg PO Q6H PRN nausea and 12/26/22 vomiting #20 tabs aspirin 81 mg chewable tablet 81 mg PO DAILY 30 days #30 tabs 04/24/23 peg 3350-electrolytes 236 240 ml PO Q10M #4,000 mL 05/09/23 gram-22.74 gram-6.74 gram-5.86 gram solution (GaviLyte-G) sulfamethoxazole 800 1 tab PO BID #20 tabs 05/14/23 mg-trimethoprim 160 mg tablet atorvastatin 40 mg tablet 40 mg PO HS 90 days #90 tabs 05/20/23 citalopram 20 mg tablet (Celexa) 20 mg PO DAILY 90 days #90 tabs 05/20/23 clopidogrel 75 mg tablet 75 mg PO DAILY 90 days #90 tabs 05/20/23 finasteride 5 mg tablet 5 mg PO DAILY 90 days #90 tabs 05/20/23 glipizide 5 mg tablet 5 mg PO BID 90 days #180 tabs 05/20/23 metformin 500 mg tablet,extended 500 mg PO BID diabetes 90 days 05/20/23 release 24 hr #180 tabs omeprazole 20 mg capsule,delayed 20 mg PO DAILY GERD 90 days #90 05/20/23 release caps blood-glucose meter,continuous #1 ea 05/23/23 (Dexcom G6 Contour Grinder) blood-glucose sensor (Dexcom G6 #3 ea 05/23/23 Sensor device) blood-glucose transmitter (Dexcom #1 ea 05/23/23 G6 Transmitter device) insulin glargine 100 unit/mL (3 65 unit (0.65 mL) SQ DAILY 30 days 05/23/23 mL) subcutaneous pen (Lantus #19.5 mL Solostar U-100 Insulin) blood sugar diagnostic (OneTouch #100 ea 05/28/23 Ultra Test strips) Allergies Allergy/AdvReac Type Severity Reaction Status Date / Time cefaclor [From [facility]] Allergy Unknown Verified 05/28/23 14:45 PFS <Dilan Corbett MD - Last Filed: 05/28/23 14:54> PFS Disclaimer: The information contained in this section may have been updated after the patient was seen, as this information can be updated by other users. Medical History BPH (benign prostatic hyperplasia) CVA, old, cognitive deficits Depression DM2 (diabetes mellitus, type 2) Family history of colon cancer requiring screening colonoscopy Hypertension Low back pain Surgical History History of knee replacement procedure of right knee Family History Father Heart attack Grandfather Heart attack Mother Cancer Social History Smoking Status: Never smoker alcohol intake: never substance use type: denies use current occupational status: disabled Travel in the last 8 weeks: None household members: spouse housing: house <Dilan Corbett MD - Last Filed: 05/28/23 14:54> ROS Obtained: Yes All systems reviewed & no additional complaints except as documented Physical Exam <Dilan Corbett MD - Last Filed: 05/28/23 14:54> General General appearance: alert and in no apparent distress Head Head exam: atraumatic, normocephalic and normal inspection Eye Eye exam: Present normal appearance, PERRL and EOMI; Absent scleral icterus or nystagmus ENT ENT exam: Present normal exam, mucous membranes moist and normal external ear exam Neck Neck exam: Present normal inspection, full ROM and trachea midline Chest Chest inspection: Present normal inspection and symmetric chest wall rise; Absent tenderness Respiratory Respiratory exam: Present normal lung sounds bilaterally; Absent respiratory distress, wheezes or accessory muscle use Cardiovascular Cardiovascular exam: Present regular rate, normal rhythm and normal heart sounds Abdominal Exam Abdominal exam: Present soft; Absent distention, tenderness, guarding, rebound, rigidity, trauma, ascites or pulsatile mass exam: Present deferred Extremities Exam Extremities exam: Present normal inspection and full ROM; Absent tenderness Back Exam Back exam: Present normal inspection and full ROM; Absent tenderness Neurological Exam Neurological exam: Present alert, oriented X3 and normal gait; Absent motor sensory deficit Psychiatric Psychiatric exam: Present normal affect and normal mood Skin Skin exam: Present warm, dry and normal color Medical Decision Making <Dilan Corbett MD - Last Filed: 05/28/23 14:54> Medical Records Medical records reviewed: Yes I reviewed the patient's medical records. Portre Inquiry Pt receiving controlled substance: No Vital Signs: 05/28/23 14:31 05/28/23 14:34 05/28/23 14:40 Temperature 97.7 F Temperature Source Oral Pulse Rate 85 81 Pulse Rate [Left Radial] 80 Respiratory Rate 18 Blood Pressure 160/93 H 171/99 H Blood Pressure [Right Arm] 171/99 H Blood Pressure Mean [Right Arm] 123 Blood Pressure Source [Right Arm] Automatic Cuff Blood Pressure Position [Right Arm] Sitting 02 Sat by Pulse Oximetry 97 97 97 Oxygen Delivery Method Room Air Room Air Room Air 05/28/23 15:00 05/28/23 15:21 Temperature Temperature Source Pulse Rate 93 H 78 Pulse Rate [Left Radial] Respiratory Rate Blood Pressure 148/83 H 109/58 L Blood Pressure [Right Arm] Blood Pressure Mean [Right Arm] Blood Pressure Source [Right Arm] Blood Pressure Position [Right Arm] 02 Sat by Pulse Oximetry 96 96 Oxygen Delivery Method Room Air Room Air Lab Data Lab results reviewed: Yes I reviewed the patient's lab results. Lab Results 05/28/23 14:53: WBC 8.6, RBC 4.66, Hgb 15.1, Hct 39.6 L, MCV 85.1, MCH 32.5 H, MCHC 38.2 H, RDW 13.4, Plt Count 265, MPV 7.8, Neut % (Auto) 68.2, Lymph % (Auto) 25.8, [place] % (Auto) 5.2, Eos % (Auto) 0.2, Baso % (Auto) 0.7, Neut # (Auto) 5.9, Lymph # (Auto) 2.2, [place] # (Auto) 0.4, Eos # (Auto) 0.0, Baso # (Auto) 0.1, Sodium 134 L, Potassium 4.2, Chloride 97 L, Carbon Dioxide 30, Anion Gap 11.2, BUN 10, Creatinine 1.00, Estimated Creat Clear 92, Estimated GFR 76, Est GFR ( Amer) 92, Glucose 371 H, Calcium 9.5, Total Bilirubin 0.8, AST 31, ALT 34, Alkaline Phosphatase 54, Total Protein 6.9, Albumin 4.3, Globulin 2.6, Albumin/Globulin Ratio 1.7 05/28/23 14:53 05/28/23 14:53 Orders (Tests/Meds): ORDERS Category Date Time Status CT head/brain wo con Stat Cat Scan 05/28/23 14:47 Completed CBC w/Auto Diff [Complete Blood Count Auto Diff] Stat Lab 05/28/23 14:53 Completed CMP [Comprehensive Metabolic Panel] Stat Lab 05/28/23 14:53 Completed Urinalysis and Microscopic Stat Lab 05/28/23 15:11 Received Medical Decision Narrative: In summary, Patient has a PMHx significant for recent stroke, diabetes, hypertension, BPH who presents to the ED with complaints of urinary incontinence. Patient notes that ever since his stroke in March, he has been having issues with urinary incontinence. Patient notes that he is having multiple episodes a day where he feels urge to urinate but by the time he makes to the bathroom has lost control of his bladder and wets himself. Patient denies any recent fevers, chills, back pain, saddle anesthesia, issues with fecal incontinence or retention, numbness and tingling in lower extremities. Patient denies any issues with urinary incontinence prior to his CVA. Over the past few weeks, patient has also had some issues with his gait, noting a few falls. Patient saw his primary care doctor regarding this issue who started the patient on antibiotic due to concerns for UTI, but despite finishing the antibiotics he has not had any improvement of symptoms. Patient was afebrile, hemodynamically stable, in no respiratory distress, and nontoxic in appearance upon arrival and throughout the entire stay in the ED. Physical examination was unremarkable, including lungs CTAB, normal cardiac auscultation, benign abdominal exam with no focal TTP, and no acute neurological deficit. The DDx includes, but is not limited to, stress incontinence, urgency incontinence, overflow incontinence, diabetic neuropathy, medication side effect, constipation, UTI, BPH, cauda equina syndrome, NPH, post CVA residual deficit. All of these have been considered, however ruling out the most morbid conditions drove my clinical assessment and thus the following laboratory and/or radiographic evaluation was conducted to the appropriate extent based on history and physical examination. Prevoid bladder scan was notable for approximately 150 cc. All ordered laboratory studies independently reviewed and interpreted by myself and pertinent for: - CBC, CMP, UA pending X-ray/CT/US studies independently reviewed and interpreted by myself and notable for: - CT Head pending At this time, patient's care was transferred to the incoming Dr. Rolon. Patient's disposition is pending remainder of workup. <Patricio Rolon MD - Last Filed: 05/28/23 15:55> Vital Signs: 05/28/23 14:31 05/28/23 14:34 05/28/23 14:40 Temperature 97.7 F Temperature Source Oral Pulse Rate 85 81 Pulse Rate [Left Radial] 80 Respiratory Rate 18 Blood Pressure 160/93 H 171/99 H Blood Pressure [Right Arm] 171/99 H Blood Pressure Mean [Right Arm] 123 Blood Pressure Source [Right Arm] Automatic Cuff Blood Pressure Position [Right Arm] Sitting 02 Sat by Pulse Oximetry 97 97 97 Oxygen Delivery Method Room Air Room Air Room Air 05/28/23 15:00 05/28/23 15:21 Temperature Temperature Source Pulse Rate 93 H 78 Pulse Rate [Left Radial] Respiratory Rate Blood Pressure 148/83 H 109/58 L Blood Pressure [Right Arm] Blood Pressure Mean [Right Arm] Blood Pressure Source [Right Arm] Blood Pressure Position [Right Arm] 02 Sat by Pulse Oximetry 96 96 Oxygen Delivery Method Room Air Room Air Lab Data Lab results reviewed: Yes I reviewed the patient's lab results. Lab Results 05/28/23 14:53: WBC 8.6, RBC 4.66, Hgb 15.1, Hct 39.6 L, MCV 85.1, MCH 32.5 H, MCHC 38.2 H, RDW 13.4, Plt Count 265, MPV 7.8, Neut % (Auto) 68.2, Lymph % (Auto) 25.8, [place] % (Auto) 5.2, Eos % (Auto) 0.2, Baso % (Auto) 0.7, Neut # (Auto) 5.9, Lymph # (Auto) 2.2, [place] # (Auto) 0.4, Eos # (Auto) 0.0, Baso # (Auto) 0.1, Sodium 134 L, Potassium 4.2, Chloride 97 L, Carbon Dioxide 30, Anion Gap 11.2, BUN 10, Creatinine 1.00, Estimated Creat Clear 92, Estimated GFR 76, Est GFR ( Amer) 92, Glucose 371 H, Calcium 9.5, Total Bilirubin 0.8, AST 31, ALT 34, Alkaline Phosphatase 54, Total Protein 6.9, Albumin 4.3, Globulin 2.6, Albumin/Globulin Ratio 1.7 Orders (Tests/Meds): ORDERS Category Date Time Status CT head/brain wo con Stat Cat Scan 05/28/23 14:47 Completed CBC w/Auto Diff [Complete Blood Count Auto Diff] Stat Lab 05/28/23 14:53 Completed CMP [Comprehensive Metabolic Panel] Stat Lab 05/28/23 14:53 Completed Urinalysis and Microscopic Stat Lab 05/28/23 15:11 Received Medical Decision Narrative: In summary, Patient has a PMHx significant for recent stroke, diabetes, hypertension, BPH who presents to the ED with complaints of urinary incontinence. Patient notes that ever since his stroke in March, he has been having issues with urinary incontinence. Patient notes that he is having multiple episodes a day where he feels urge to urinate but by the time he makes to the bathroom has lost control of his bladder and wets himself. Patient denies any recent fevers, chills, back pain, saddle anesthesia, issues with fecal incontinence or retention, numbness and tingling in lower extremities. Patient denies any issues with urinary incontinence prior to his CVA. Over the past few weeks, patient has also had some issues with his gait, noting a few falls. Patient saw his primary care doctor regarding this issue who started the patient on antibiotic due to concerns for UTI, but despite finishing the antibiotics he has not had any improvement of symptoms. Patient was afebrile, hemodynamically stable, in no respiratory distress, and nontoxic in appearance upon arrival and throughout the entire stay in the ED. Physical examination was unremarkable, including lungs CTAB, normal cardiac auscultation, benign abdominal exam with no focal TTP, and no acute neurological deficit. The DDx includes, but is not limited to, stress incontinence, urgency incontinence, overflow incontinence, diabetic neuropathy, medication side effect, constipation, UTI, BPH, cauda equina syndrome, NPH, post CVA residual deficit. All of these have been considered, however ruling out the most morbid conditions drove my clinical assessment and thus the following laboratory and/or radiographic evaluation was conducted to the appropriate extent based on history and physical examination. Prevoid bladder scan was notable for approximately 150 cc. All ordered laboratory studies independently reviewed and interpreted by myself and pertinent for: - CBC, CMP, UA pending X-ray/CT/US studies independently reviewed and interpreted by myself and notable for: - CT Head pending At this time, patient's care was transferred to the incoming Dr. Rolon. Patient's disposition is pending remainder of workup. Reassessment this is Dr. Rolon 3:55 PM I took over for Dr. Corbett following up patient's labs and CT scan which were unremarkable on my personal interpretation and radiology read as well. Patient symptoms are consistent with a complication of his recent stroke he had no incontinence prior to this has no back pain no concern for any type of spinal cord impingement etc. No emergent intervention indicated at the moment he has been told to follow-up with primary care doctor and was discharged in stable condition. Critical Care <Dilan Corbett MD - Last Filed: 05/28/23 14:54> Critical Care Time Critical Care Time: No
--- NOTE | 2023-05-28 14:56 | PC.NURSE ---
PT AWARE OF NEED FOR UA. STATES HE IS UNABLE TO GO AT THIS TIME. PROVIDED PT WITH URINAL.
[2023-05-28 15:00] VITALS: BP 148/83; PULSE 93; O2SAT 96
[2023-05-28 15:09] LABS: Basophils # 0.1 K/mm3 (0-0.2); Basophils % 0.7 % (0.1-2.0); Eosinophils % 0.2 % (0.1-12.0); Hematocrit 39.6 % (42.0-52.0); Hemoglobin 15.1 g/dL (14.1-18.0); Lymphocytes # 2.2 K/mm3 (0.7-4.5); Lymphocytes % 25.8 % (10-50); Mean Corpuscular HGB Conc 38.2 g/dL (31.8-35.4); Mean Corpuscular Hemoglobin 32.5 pg (27.0-31.2); Mean Corpuscular Volume 85.1 fl (80-94); Mean Platelet Volume 7.8 fl (7.4-10.4); Monocytes # 0.4 K/mm3 (0.1-1.0); Monocytes % 5.2 % (1.7-9.3); Neutrophils # 5.9 K/mm3 (1.8-7.8); Neutrophils % 68.2 % (37.0-80.0); Platelet Count 265 K/mm3 (142-424); Red Blood Count 4.66 M/mm3 (4.60-6.20); Red Cell Distribution Width 13.4 % (11.5-17.5); White Blood Count 8.6 K/mm3 (4.8-10.8)
[2023-05-28 15:10] LABS: Chloride 97 mmol/L (98-107); Potassium 4.2 mmoL/L (3.5-5.1); Sodium 134 mmol/L (136-145)
[2023-05-28 15:12] LABS: Blood Urea Nitrogen 10 mg/dl (9-20); Creatinine Clearance Estimated 92 mL/min (50-200); Estimated Glomerular Filt Rate 76 ml/min (>60); GFR (African American) 92 ML/MIN (>60)
[2023-05-28 15:13] LABS: Alanine Aminotransferase 34 U/L (12-78); Albumin Level 4.3 g/dl (3.5-5.0); Albumin/Globulin Ratio 1.7 (1.1-1.8); Alkaline Phosphatase 54 U/L (38-126); Anion Gap 11.2 mEq/L (5-15); Aspartate Amino Transferase 31 U/L (17-59); Bilirubin,Total 0.8 mg/dl (0.2-1.3); Calcium 9.5 mg/dl (8.4-10.2); Carbon Dioxide 30 mmol/L (22.0-30.0); Globulin 2.6 g/dL (1.3-3.2); Glucose 371 mg/dl (74-100); Total Protein,Serum 6.9 g/dl (6.3-8.2)
[2023-05-28 15:17] LABS: Microscopic, Urine URINE MICROSCOPIC (MICROSCOPIC)
[2023-05-28 15:21] VITALS: BP 109/58; PULSE 78; O2SAT 96
--- NOTE | 2023-05-28 15:49 | PC.NURSE ---
BLADDER SCANNED NOTED AT >270. ER MD NOTIFIED.
[2023-05-28 15:51] LABS: Appearance,Urine CLEAR (Clear); Bilirubin,Urine Negative (Negative); Blood, Urine Negative (Negative); Color,Urine YELLOW (Yellow); Glucose,Urine (UA) 3+ (Negative); Ketones,Urine Negative (Negative); Leukocyte Esterase,Urine Negative (Negative); Nitrate,Urine Negative (Negative); Protein,Urine Negative (Negative); Specific Gravity, Urine <= 1.005 (1.005-1.030); Urobilinogen,Urine 0.2 EU/dl (0.2)
[2023-05-28 16:02] VITALS: BP 119/62; PULSE 70; RESP 18; TEMP 36.8; O2SAT 96
[2023-05-28 16:05] LABS: Squamous Epithelial Cell,Urine Occasional #/hpf (0-5)
== END 2023-05-28 16:02 | disposition still patient (30) ==
PROVIDERS: Emergency Provider Emergency Medicine; PCP Family Medicine
DX: I69.398 Other sequelae of cerebral infarction (principal); R32 Unspecified urinary incontinence; N40.1 Benign prostatic hyperplasia with lower urinary tract symptoms; E11.9 Type 2 diabetes mellitus without complications; I10 Essential (primary) hypertension
CPT/HCPCS: 70450; 80053; 81001; 85025; 99285

== ENCOUNTER 2023-06-07 15:09 | Emergency (ER) | payer MEDICARE, SELFPAY ==
--- NOTE | 2023-06-07 15:42 | ED_ITS ---
Discharge Plan Disposition Patient Disposition: Home, Self-Care Condition: Good Prescriptions Prescriptions: New cyclobenzaprine 10 mg tablet 10 mg PO TID PRN (Reason: muscle spasm) Qty: 30 0RF No Action hydrocodone-acetaminophen 10-325 mg tablet 1 tab PO BID PRN (Reason: Pain (Scale Score 4-6)) (DME) blood-glucose meter [Blood Glucose Monitoring] Kit See Rx Instructions .Route Qty: 1 0RF Rx Instructions: As directed (DME) Blood Glucose Test Strip See Rx Instructions .Route Qty: 100 3RF Rx Instructions: Pt is to test BID prn (DME) lancets Misc See Rx Instructions .Route Qty: 100 3RF Rx Instructions: Pt is to test BID prn (DME) lancets [OneTouch Delica Plus Lancet] 33 gauge misc See Rx Instructions .ROUTE .MEDSUPPLY Qty: 100 Patient Comments: USE 1 LANCET TO CHECK GLUCOSE TWICE DAILY NEEDED FOR DIABETES Rx Instructions: As directed (DME) blood-glucose meter [OneTouch Ultra2 Meter] Mis See Rx Instructions .ROUTE .MEDSUPPLY Qty: 1 Patient Comments: USE DIRECTED FOR DIABETES Rx Instructions: As directed promethazine 25 mg tablet 25 mg PO Q6H PRN (Reason: nausea and vomiting) Qty: 20 2RF Rx Instructions: Pt stated he does not use often tamsulosin [Flomax] 0.4 mg capsule 0.4 mg PO DAILY Qty: 30 3RF oxybutynin chloride 10 mg tablet extended release 24hr 10 mg PO DAILY Qty: 90 3RF (DME) needle (disp) 31 gauge 31 gauge x 5/16 needle See Rx Instructions .Route Qty: 100 1RF Rx Instructions: As directed citalopram [Celexa] 20 mg tablet 20 mg PO DAILY 90 Days Qty: 90 0RF finasteride 5 mg tablet 5 mg PO DAILY 90 Days Qty: 90 0RF clopidogrel 75 mg tablet 75 mg PO DAILY 90 Days Qty: 90 0RF atorvastatin 40 mg tablet 40 mg PO HS 90 Days Qty: 90 0RF metformin 500 mg tablet extended release 24 hr 500 mg PO BID 90 Days Qty: 180 0RF omeprazole 20 mg capsule,delayed release(DR/EC) 20 mg PO DAILY 90 Days Qty: 90 0RF insulin glargine [Lantus Solostar U-100 Insulin] 100 unit/mL (3 mL) insulin pen 65 unit SQ DAILY 30 Days Qty: 19.5 2RF (DME) Dexcom G6 Clinical Cytogenetics Director Misc See Rx Instructions .Route Qty: 1 0RF Rx Instructions: As directed (DME) Dexcom G6 Sensor Device See Rx Instructions .Route Qty: 3 1RF Rx Instructions: As directed (DME) Dexcom G6 Transmitter Device See Rx Instructions .Route Qty: 1 0RF Rx Instructions: As directed (DME) OneTouch Ultra Test Strip See Rx Instructions .Route Qty: 100 2RF Rx Instructions: As directed aspirin 81 mg Tablet,Chewable 81 mg PO DAILY 30 Days Qty: 30 0RF Referrals Follow up/Referrals: Tam Erazo MD [Primary Care Provider] - See instructions Activity Restrictions/Add. Instructions Additional Instructions/Restrictions: Follow up with Dr Erazo if not improving Clinical Impressions Clinical Impression: Left shoulder strain Instructions Patient Instructions: DI for Shoulder Sprain Discharge ED Provider: Lolly Chino [facility] HPI General Stated complaint: AO 06/07/23 @13:00 inj to left shoulder Time Seen by Provider: 06/07/23 16:11 History of Present Illness Provider Complaint: Patient was pushing something onto trailer earlier today and had pain in left shoulder. Now has decreased ROM. Had stroke in April and already had weakness on left side but this seems different. Onset (ago): hour(s) (3) Location: left and upper extremity Radiation: non-radiation Relieving factors: none Exacerbating factors: none Associated symptoms: denies other symptoms Treatments prior to arrival: none Related Data Home Medications Medication Instructions Recorded Confirmed hydrocodone 10 mg-acetaminophen 1 tab PO BID PRN Pain (Scale Score 01/16/22 06/03/23 325 mg tablet 4-6) blood-glucose meter (OneTouch #1 ea 12/26/22 06/03/23 Ultra2 Meter) lancets 33 gauge (OneTouch Delica #100 ea 12/26/22 06/03/23 Plus Lancet) Previous Rx's Medication Instructions Recorded needle (disp) 31 gauge 31 gauge x #100 ea 05/04/2209/11 blood sugar diagnostic (Blood #100 ea 10/12/22 Glucose Test strips) blood-glucose meter (Blood Glucose #1 ea 10/12/22 Monitoring kit) lancets #100 ea 10/12/22 promethazine 25 mg tablet 25 mg PO Q6H PRN nausea and 12/26/22 vomiting #20 tabs aspirin 81 mg chewable tablet 81 mg PO DAILY 30 days #30 tabs 04/24/23 atorvastatin 40 mg tablet 40 mg PO HS 90 days #90 tabs 05/20/23 citalopram 20 mg tablet (Celexa) 20 mg PO DAILY 90 days #90 tabs 05/20/23 clopidogrel 75 mg tablet 75 mg PO DAILY 90 days #90 tabs 05/20/23 finasteride 5 mg tablet 5 mg PO DAILY 90 days #90 tabs 05/20/23 metformin 500 mg tablet,extended 500 mg PO BID diabetes 90 days 05/20/23 release 24 hr #180 tabs omeprazole 20 mg capsule,delayed 20 mg PO DAILY GERD 90 days #90 05/20/23 release caps blood-glucose meter,continuous #1 ea 05/23/23 (Dexcom G6 Clinical Cytogenetics Director) blood-glucose sensor (Dexcom G6 #3 ea 05/23/23 Sensor device) blood-glucose transmitter (Dexcom #1 ea 05/23/23 G6 Transmitter device) insulin glargine 100 unit/mL (3 65 unit (0.65 mL) SQ DAILY 30 days 05/23/23 mL) subcutaneous pen (Lantus #19.5 mL Solostar U-100 Insulin) blood sugar diagnostic (OneTouch #100 ea 05/28/23 Ultra Test strips) oxybutynin chloride 10 mg 10 mg PO DAILY #90 tabs 06/03/23 tablet,extended release 24 hr tamsulosin 0.4 mg capsule (Flomax) 0.4 mg PO DAILY #30 caps 06/03/23 cyclobenzaprine 10 mg tablet 10 mg PO TID PRN muscle spasm #30 06/07/23 tabs Allergies Allergy/AdvReac Type Severity Reaction Status Date / Time cefaclor [From [facility]] Allergy Unknown Verified 06/07/23 15:56 [facility] Disclaimer: The information contained in this section may have been updated after the patient was seen, as this information can be updated by other users. Medical History BPH (benign prostatic hyperplasia) CVA, old, cognitive deficits Depression DM2 (diabetes mellitus, type 2) Family history of colon cancer requiring screening colonoscopy Hypertension Low back pain Surgical History History of knee replacement procedure of right knee Family History Father Heart attack Grandfather Heart attack Mother Cancer Social History Smoking Status: Never smoker alcohol intake: never substance use type: denies use current occupational status: disabled Travel in the last 8 weeks: None household members: spouse housing: house ROS Obtained: Yes All systems reviewed & no additional complaints except as documented Musculoskeletal Musculoskeletal: Reports as per HPI Physical Exam General General appearance: alert and in no apparent distress Chest Chest inspection: Present normal inspection and symmetric chest wall rise; Absent tenderness Respiratory Respiratory exam: Present normal lung sounds bilaterally; Absent respiratory distress, wheezes or accessory muscle use Cardiovascular Cardiovascular exam: Present regular rate, normal rhythm and normal heart sounds Extremities Exam Extremities exam: Present normal inspection and full ROM; Absent tenderness Expanded Upper Extremity Exam Left: Shoulder exam: Present normal inspection and tenderness; Absent dislocation or tenderness over AC joint Arm exam: Present normal inspection and full ROM Back Exam Back exam: Present normal inspection and full ROM; Absent tenderness Neurological Exam Neurological exam: Present alert, oriented X3 and normal gait; Absent motor sensory deficit Psychiatric Psychiatric exam: Present normal affect and normal mood Skin Skin exam: Present warm, dry and normal color Medical Decision Making Porter Inquiry Pt receiving controlled substance: No Radiology Data #1: Image(s): Shoulder Image Reviewed: Yes I reviewed the patient's radiology image Preliminary Findings: Normal/NAD and No Fracture Seen
[2023-06-07 15:45] VITALS: BP 118/80; PULSE 94; RESP 18; TEMP 37.1; O2SAT 98; BMI 30.8
--- NOTE | 2023-06-07 15:56 | XR_ITS ---
FINAL REPORT CLINICAL HISTORY: pain. nki COMPARISON: 11/04/2019 FINDINGS: Left shoulder Three views were obtained. There is no acute fracture or dislocation. There is mild AC joint degenerative change. No soft tissue abnormality is identified. IMPRESSION: Mild AC joint degenerative change. Reviewed, Interpreted and Dictated by Kel Gerardo III, MD Transcribed by Kathy Ojeda Authenticated and . [facility]
--- NOTE | 2023-06-07 15:56 | PC.NURSE ---
Called RAD to xray
--- NOTE | 2023-06-07 16:07 | PC.NURSE ---
Pt back from xray
[2023-06-07 16:54] VITALS: BP 118/80; PULSE 94; RESP 18; TEMP 37.1; O2SAT 98
== END 2023-06-07 16:50 | disposition home or self-care (01) ==
PROVIDERS: Emergency Provider Physician Assistant; PCP Family Medicine
DX: S46.912A Strain of unspecified muscle, fascia and tendon at shoulder and upper arm level, left arm, initial encounter (principal); X50.0XXA Overexertion from strenuous movement or load, initial encounter; E11.9 Type 2 diabetes mellitus without complications; I10 Essential (primary) hypertension; Z79.4 Long term (current) use of insulin; Z79.84 Long term (current) use of oral hypoglycemic drugs
CPT/HCPCS: 73030; 99204; 99212; G0463

== ENCOUNTER 2023-06-10 13:40 | Outpatient (CLI) | payer MEDICARE, SELFPAY ==
[2023-06-10 14:45] LABS: Blood Urea Nitrogen 11 mg/dl (9-20); Estimated Glomerular Filt Rate 76 ml/min (>60); GFR (African American) 92 ML/MIN (>60)
[2023-06-10 15:15] LABS: Prostate Specific Ag Screen 0.4 ng/ml (0.0-4.0)
== END 2023-06-10 23:59 ==
LOC: LAB 13:41
PROVIDERS: PCP Family Medicine; Visit Provider Urology
DX: Z12.5 Encounter for screening for malignant neoplasm of prostate (principal); I69.398 Other sequelae of cerebral infarction; R32 Unspecified urinary incontinence
CPT/HCPCS: 36415; 82565; 84520; G0103

== ENCOUNTER 2023-07-16 16:52 | Outpatient (CLI) | payer MEDICARE, SELFPAY ==
[2023-07-16 18:38] LABS: Hemoglobin A1C 8.3 % (4.0-6.0)
== END 2023-07-16 23:59 ==
LOC: LAB.DROPOF 16:52
PROVIDERS: PCP Family Medicine; Visit Provider Family Medicine
DX: E11.9 Type 2 diabetes mellitus without complications (principal)
CPT/HCPCS: 83036

== ENCOUNTER 2023-08-12 06:01 | Day surgery (SDC) | payer MEDICARE, SELFPAY ==
[2023-08-09 10:24] VITALS: BMI 29.8
[2023-08-12 06:21] VITALS: BP 139/85; PULSE 101; RESP 18; TEMP 36.6; O2SAT 97
[2023-08-12 06:29] LABS: POC Glucose,Bedside 111 (70-110)
[2023-08-12] MEDS: LACTATED RINGERS 1000ML 1,000 ML 25 ML IV (06:29)
[2023-08-12] MEDS: LIDOCAINE 2% UROJET 10ML 10 ML (07:46)
[2023-08-12] MEDS: 0.9 % SODIUM CHLORIDE 1000ML 1,000 ML 100 ML IV (07:46)
[2023-08-12 07:56] VITALS: BP 134/79; PULSE 78; RESP 18; TEMP 36.7; O2SAT 99
[2023-08-12 08:05] VITALS: BP 124/79; PULSE 78; RESP 18; TEMP 36.6
--- NOTE | 2023-08-19 10:02 | HMH.PROCNOTE ---
[facility] Procedure Note Date: 08/12/23 Time: 08:30 Procedure Note:: Preop diagnosis: Urinary frequency/BPH Postop diagnosis: Urinary frequency/BPH: Operation: Cystoscopy The patient was brought to the operating room and prepped and draped for a clean cystoscopy. The anterior urethra is unremarkable as he underwent flexible cystoscopy. From the level of the verumontanum the patient has grade 1 prostate obstruction and a 1 to 1.5 cm posterior urethral length. The patient ureteral orifice ease are normal bilaterally with clear reflux of urine. There is no bladder stone tumor hemorrhage or infection. Note should be made that the patient had sensation to void at 60 cc. He has a full bladder capacity at 150 cc. His bladder was emptied and he tolerated the procedure well.
== END 2023-08-12 08:05 | disposition home or self-care (01) ==
PROVIDERS: PCP Family Medicine; Visit Provider Urology
PROC: 0TJB8ZZ Inspection of Bladder, Via Natural or Artificial Opening Endoscopic (ICD-10-PCS; CPT 52000; principal; 2023-08-12 07:30)
DX: N40.1 Benign prostatic hyperplasia with lower urinary tract symptoms (principal); R35.0 Frequency of micturition; E11.9 Type 2 diabetes mellitus without complications
CPT/HCPCS: 52000; 82962; 87086

== ENCOUNTER 2023-09-13 19:37 | Emergency (ER) | payer MEDICARE, SELFPAY ==
[2023-09-13 19:55] VITALS: BP 152/84; PULSE 98; RESP 17; TEMP 36.7; O2SAT 97; BMI 28.7
[2023-09-13 20:00] VITALS: BP 143/86; PULSE 88; O2SAT 98
--- NOTE | 2023-09-13 20:00 | XR_ITS ---
PROCEDURE INFORMATION: Exam: XR Left Shoulder Exam date and time: 09/13/2023 9:26 PM Age: 63 years old Clinical indication: Pain; Shoulder; Left; Additional info: Fall, pain, refusing CT TECHNIQUE: Imaging protocol: Radiologic exam of the left shoulder. Views: 2 or more views. COMPARISON: CR XR SHOULDER LT MIN 2V 12/30/2023 15:52 FINDINGS: Bones/joints: No acute fracture or dislocation. Soft tissues: Normal. IMPRESSION: No acute fracture or dislocation.
--- NOTE | 2023-09-13 20:05 | HMH.EDGENADL ---
Discharge Plan Disposition Patient Disposition: Left Against Medical Advice Prescriptions Prescriptions: No Action tamsulosin [Flomax] 0.4 mg capsule 0.4 mg PO BID 90 Days Qty: 180 3RF hydrocodone-acetaminophen 10-325 mg tablet 1 tab PO BID PRN (Reason: Pain (Scale Score 4-6)) (DME) lancets Misc See Rx Instructions .Route Qty: 100 3RF Rx Instructions: Pt is to test BID prn (DME) lancets [OneTouch Delica Plus Lancet] 33 gauge misc See Rx Instructions .ROUTE .MEDSUPPLY Qty: 100 Patient Comments: USE 1 LANCET TO CHECK GLUCOSE TWICE DAILY NEEDED FOR DIABETES Rx Instructions: As directed (DME) blood-glucose meter [Yogurt3D Engineuch Ultra2 Meter] Misc See Rx Instructions .ROUTE .MEDSUPPLY Qty: 1 Patient Comments: USE DIRECTED FOR DIABETES Rx Instructions: As directed promethazine 25 mg tablet 25 mg PO Q6H PRN (Reason: nausea and vomiting) Qty: 20 2RF Rx Instructions: Pt stated he does not use often (DME) blood-glucose meter [Blood Glucose Monitoring] Kit See Rx Instructions .Route Qty: 1 0RF Rx Instructions: As directed (DME) Blood Glucose Test Strip See Rx Instructions .Route Qty: 100 3RF Rx Instructions: Pt is to test BID prn (DME) needle (disp) 31 gauge 31 gauge x 5/16 needle See Rx Instructions .Route Qty: 100 1RF Rx Instructions: As directed citalopram [Celexa] 20 mg tablet 20 mg PO DAILY 90 Days Qty: 90 0RF (DME) Dexcom G6 Computer Hardware Developer Misc See Rx Instructions .Route Qty: 1 0RF Rx Instructions: As directed (DME) Dexcom G6 Sensor Device See Rx Instructions .Route Qty: 3 1RF Rx Instructions: As directed (DME) Dexcom G6 Transmitter Device See Rx Instructions .Route Qty: 1 0RF Rx Instructions: As directed (DME) OneTouch Ultra Test Strip See Rx Instructions .Route Qty: 100 2RF Rx Instructions: As directed insulin glargine-yfgn [Semglee(insulin glarg-yfgn)Pen] 100 unit/mL (3 mL) insulin pen 60 unit SQ HS Patient Comments: INJECT 60 UNITS UNDER THE SKIN ONCE DAILY atorvastatin 40 mg tablet 40 mg PO HS 90 Days Qty: 90 3RF metformin 500 mg tablet extended release 24 hr 1,000 mg PO HS Qty: 180 3RF clopidogrel 75 mg tablet 75 mg PO DAILY 90 Days Qty: 90 3RF omeprazole 20 mg capsule,delayed release(DR/EC) 20 mg PO DAILY 90 Days Qty: 90 3RF aspirin 81 mg Tablet,Chewable 81 mg PO DAILY 30 Days Qty: 30 0RF cyclobenzaprine 10 mg tablet 10 mg PO TID PRN (Reason: muscle spasm) Qty: 30 0RF Referrals Follow up/Referrals: Tam Erazo MD [Primary Care Provider] - See instructions Clinical Impressions Clinical Impression: Left against medical advice Discharge ED Provider: Bonnie Allen General Adult HPI General Chief complaint: Fall Stated complaint: AO 09/10/23 1400 Injury Left shoulder Time Seen by Provider: 09/13/23 19:50 Mode of Arrival: Family Vehicle Source of Information: Patient Limitations: No Limitations Description of Symptoms (Recalled from ER Triage Doc. by RN): patient was walking from bathroom (void) to chair when he blacked out and fell hitting his mid back and butt. denies head injury. PMH: dm, vascular dementia . Just wants xrays History of Present Illness HPI narrative: This patient is a 63-year-old male with a history of vascular dementia, hypertension, type 2 diabetes, and BPH presenting to the emergency department for evaluation with concern for syncopal episode. He is also having left shoulder pain. Patient was reportedly walking from the bathroom to his chair when he blacked out, falling and hitting his head, left shoulder, mid back, and buttock. He states that he is having left shoulder pain at this time. He denies any vision changes, numbness, tingling, weakness, chest pain, shortness of breath, abdominal pain, vomiting, or other concerns. He just wants x-rays to make sure he did not hurt his shoulder. He states that he has groceries in the car and is in a hurry. He was feeling fine before this episode and notes that he has not had any concerns or complaints as of late. Of note, he just got out of a psych facility recently and has a legal guardian. She is here and advises to go ahead and do labs or what ever we need to do. Related Data Home Medications Medication Instructions Recorded Confirmed hydrocodone 10 mg-acetaminophen 1 tab PO BID PRN Pain (Scale Score 01/16/22 08/12/23 325 mg tablet 4-6) blood-glucose meter (OneTouch #1 ea 12/26/22 08/12/23 Ultra2 Meter) lancets 33 gauge (OneTouch Delica #100 ea 12/26/22 08/12/23 Plus Lancet) insulin glargine-yfgn 100 unit/mL 60 unit SQ HS 07/17/23 09/13/23 (3 mL) subcutaneous pen (Semglee (insulin glargine-yfgn) Pen) Previous Rx's Medication Instructions Recorded needle (disp) 31 gauge 31 gauge x #100 ea 05/04/2209/11 lancets #100 ea 10/12/22 promethazine 25 mg tablet 25 mg PO Q6H PRN nausea and 12/26/22 vomiting #20 tabs aspirin 81 mg chewable tablet 81 mg PO DAILY 30 days #30 tabs 04/24/23 citalopram 20 mg tablet (Celexa) 20 mg PO DAILY 90 days #90 tabs 05/20/23 blood-glucose meter,continuous #1 ea 05/23/23 (Dexcom G6 Computer Hardware Developer) blood-glucose sensor (Dexcom G6 #3 ea 05/23/23 Sensor device) blood-glucose transmitter (Dexcom #1 ea 05/23/23 G6 Transmitter device) blood sugar diagnostic (OneTouch #100 ea 05/28/23 Ultra Test strips) cyclobenzaprine 10 mg tablet 10 mg PO TID PRN muscle spasm #30 06/07/23 tabs blood sugar diagnostic (Blood #100 ea 06/17/23 Glucose Test strips) blood-glucose meter (Blood Glucose #1 ea 06/17/23 Monitoring kit) tamsulosin 0.4 mg capsule (Flomax) 0.4 mg PO BID 90 days #180 caps 07/22/23 atorvastatin 40 mg tablet 40 mg PO HS 90 days #90 tabs 09/02/23 clopidogrel 75 mg tablet 75 mg PO DAILY 90 days #90 tabs 09/02/23 metformin 500 mg tablet,extended 1,000 mg (2 x 500 mg) PO HS 09/02/23 release 24 hr diabetes #180 tabs omeprazole 20 mg capsule,delayed 20 mg PO DAILY GERD 90 days #90 09/02/23 release caps Allergies Allergy/AdvReac Type Severity Reaction Status Date / Time cefaclor [From [facility]] Allergy Unknown Verified 08/12/23 06:19 [facility] Disclaimer: The information contained in this section may have been updated after the patient was seen, as this information can be updated by other users. Medical History Family history of colon cancer requiring screening colonoscopy Depression Low back pain BPH (benign prostatic hyperplasia) Hypertension CVA, old, cognitive deficits DM2 (diabetes mellitus, type 2) Surgical History History of cataract surgery History of hernia repair History of knee replacement procedure of right knee Family History Father Heart attack Grandfather Heart attack Mother Cancer Social History Smoking Status: Unknown if ever smoked alcohol intake: never substance use type: denies use current occupational status: disabled Travel in the last 8 weeks: None household members: spouse housing: house ROS Obtained: Yes All systems reviewed & no additional complaints except as documented Physical Exam General General appearance: alert and in no apparent distress Head Head exam: atraumatic and normocephalic Eye Eye exam: Present normal appearance, PERRL and EOMI ENT ENT exam: Present normal exam, normal oropharynx, mucous membranes moist and normal external ear exam Neck Neck exam: Present normal inspection, full ROM and trachea midline; Absent tenderness Chest Chest inspection: Present normal inspection and symmetric chest wall rise; Absent tenderness Respiratory Respiratory exam: Present normal lung sounds bilaterally; Absent respiratory distress, wheezes, stridor or accessory muscle use Cardiovascular Cardiovascular exam: Present regular rate and normal rhythm Abdominal Exam Abdominal exam: Present soft; Absent distention, tenderness or guarding Extremities Exam Extremities exam: Present normal inspection, full ROM and normal capillary refill; Absent tenderness or edema Back Exam Back exam: Present full ROM and paraspinal tenderness (L upper back); Absent tenderness Neurological Exam Neurological exam: Present alert, oriented X3, CN II-XII intact and normal gait; Absent motor sensory deficit Psychiatric Psychiatric exam: Present normal affect and normal mood Skin Skin exam: Present warm and dry Medical Decision Making Medical Records Medical records reviewed: Yes I reviewed the patient's medical records. Porter Inquiry Pt receiving controlled substance: No Vital Signs: 09/13/23 19:55 09/13/23 20:00 09/13/23 20:31 Temperature 98.0 F Temperature Source Oral Pulse Rate 88 85 Pulse Rate [Right Brachial] 98 H Respiratory Rate 17 Blood Pressure 143/86 H 154/120 H Blood Pressure [Right Arm] 152/84 H Blood Pressure Mean 98 129 Blood Pressure Mean [Right Arm] 106 Blood Pressure Source [Right Arm] Automatic Cuff Blood Pressure Position [Right Arm] Sitting 02 Sat by Pulse Oximetry 97 98 97 Oxygen Delivery Method Room Air Room Air Room Air 09/13/23 22:08 Temperature 98.1 F Temperature Source Pulse Rate 87 Pulse Rate [Right Brachial] Respiratory Rate 18 Blood Pressure 152/84 H Blood Pressure [Right Arm] Blood Pressure Mean Blood Pressure Mean [Right Arm] Blood Pressure Source [Right Arm] Blood Pressure Position [Right Arm] 02 Sat by Pulse Oximetry Oxygen Delivery Method Lab Data Lab results reviewed: Yes I reviewed the patient's lab results. Lab Results 09/13/23 20:28: Urine Color Yellow, Urine Appearance Clear, Urine pH 5.5, Ur Specific Iselin <= 1.005, Urine Protein Negative, Urine Glucose (UA) 3+, Urine Ketones Negative, Urine Blood Negative, Urine Nitrate Negative, Urine Bilirubin Negative, Urine Urobilinogen 0.2, Ur Leukocyte Esterase Negative, Urine RBC None, Urine WBC Occasional, Ur Squamous Epith Cells Occasional, Urine Bacteria None 09/13/23 20:45: WBC 6.3, RBC 4.68, Hgb 12.9 L, Hct 39.2 L, MCV 83.9, MCH 27.6, MCHC 32.9, RDW 14.5, Plt Count 258, MPV 8.3, Neut % (Auto) 61.7, Lymph % (Auto) 29.3, Nobles % (Auto) 6.0, Eos % (Auto) 2.0, Baso % (Auto) 1.0, Neut # (Auto) 3.9, Lymph # (Auto) 1.9, Nobles # (Auto) 0.4, Eos # (Auto) 0.1, Baso # (Auto) 0.1, Sodium 133 L, Potassium 3.9, Chloride 99, Carbon Dioxide 25, Anion Gap 12.9, BUN 16, Creatinine 1.10, Estimated Creat Clear 78, Estimated GFR 68, Est GFR ( Amer) 82, Glucose 505 H*, Calcium 9.4, Total Bilirubin 0.8, AST 27, ALT 29, Alkaline Phosphatase 59, Troponin I < 0.01, Total Protein 6.3, Albumin 3.9, Globulin 2.4, Albumin/Globulin Ratio 1.6 09/13/23 20:45 09/13/23 20:45 Orders (Tests/Meds): ED MEDICATIONS Discontinued Medications Generic Name Dose Route Start Last Admin Trade Name Freq PRN Reason Stop Dose Admin Insulin Human Lispro 10 unit 09/13/23 21:42 Humalog 100 Units/Ml 3ml Vial (Ssi) SQ 09/13/23 21:43 ONCE ONE Iopamidol 70 ml 09/13/23 21:36 09/13/23 21:37 Iopamidol-370 (76%);100ml Bottle IV 09/13/23 21:37 70 ml ONCE ONE Administration Sodium Chloride 50 ml 09/13/23 21:36 09/13/23 21:37 0.9 % Sodium Chloride 50 Ml Vial IV 09/13/23 21:37 50 ml ONCE ONE Administration Sodium Chloride 10 ml 09/13/23 21:36 09/13/23 21:37 Sodium Chloride 0.9% 10ml Syr (Rad Only) IV 10/13/23 21:35 10 ml NEEDED PRN Administration Maintain IV Site ORDERS Category Date Time Status CT angio chest PE protocol Stat Cat Scan 09/13/23 20:[address] cervical spine wo con Stat Cat Scan 09/13/23 20:[address] head/brain wo con Stat Cat Scan 09/13/23 20:[address] thoracic spine wo con Stat Cat Scan 09/13/23 20:08 Completed XR shoulder LT min 2V Stat Exams 09/13/23 20:00 Completed Complete Blood Count Auto Diff Stat Lab 09/13/23 20:45 Completed Comprehensive Metabolic Panel Stat Lab 09/13/23 20:45 Completed Troponin I Stat Lab 09/13/23 20:45 Completed UA [Urinalysis and Microscopic] Stat Lab 09/13/23 20:28 Completed ECG Data Tracing #1: I reviewed this ECG and interpreted as documented below: QANormal sinus rhythm with a ventricular rate of [address] changes concerning for ischemia. Present in leads II and aVF. ECG initial impression date: 09/13/23 ECG initial impression time: 20:29 Medical Decision Narrative: In summary, this patient is a 63-year-old male presenting to the Emergency Department for evaluation of syncopal episode with left shoulder/back pain. Differential diagnoses considered include but are not limited to aortic pathology, PE, ACS, dysrhythmia, vasovagal syncope, hypoglycemia, fracture, contusion, strain/sprain. Ruling out the most morbid conditions drove assessment. It should be noted patient's history includes vascular dementia, hypertension, diabetes which may or may not be at goal therapy. This complicates all aspects of care by increasing patient's risk for morbidity. Reviewed prior records and noted history of stroke. On exam, the patient is alert, conversational, and at his baseline per family. No focal neurologic deficits. Cardiopulmonary exam and vitals are reassuring. Patient only wants x-rays of the left shoulder since he fell and is having pain, but given his syncope, I feel he needs further workup. Guardian is agreeable to this. Given this, workup included CBC, CMP, troponin, CTA of the chest, CT head without contrast, and CT C/T-spine without contrast. I independently interpreted the scan prior to the radiologist read and noted no obvious acute intracranial hemorrhage or space-occupying lesion, no large PE, and no obvious acute fracture. Please see their read for final interpretation. Labs were obtained that demonstrated very mild hyponatremia, likely related to his significant hyperglycemia with a glucose of 505. He has not yet had his insulin tonight. He was given 10 units of subcu insulin here and advised to keep an eye on his blood sugar. Labs otherwise reassuring. Ultimately, prior to final reads of his CT scans, patient and his guardian elected to leave AGAINST MEDICAL ADVICE because they have groceries in his car. They left understanding that the reads were not back. I did follow-up on the reads and noted that there were no significant concerning findings per radiology. Strict return precautions were given. Critical Care Critical Care Time Critical Care Time: No
--- NOTE | 2023-09-13 20:08 | CT_ITS ---
PROCEDURE INFORMATION: Exam: CTA Chest With Contrast Exam date and time: 09/13/2023 9:27 PM Age: 63 years old Clinical indication: Injury or trauma; Fall; Other: Pain; Additional info: Syncope, fall, pain TECHNIQUE: Imaging protocol: Computed tomographic angiography of the chest with contrast. Exam focused on the arteries. 3D rendering (Not supervised by radiologist): MIP and/or 3D reconstructed images were created by the technologist. Radiation optimization: All CT scans at this facility use at least one of these dose optimization techniques: automated exposure control; mA and/or kV adjustment per patient size (includes targeted exams where dose is matched to clinical indication); or iterative reconstruction. Contrast material: ISOVUE; Contrast volume: 70 ml; Contrast route: INTRAVENOUS (IV); COMPARISON: CR XR CHEST PORTABLE 14/04/2023 18:40 FINDINGS: Pulmonary arteries: Evaluation of the pulmonary arteries is limited to the segmental arterial level due to poor bolus timing. Aorta: The aorta demonstrates mild atherosclerotic disease. Lungs: Mild scarring and atelectasis in the lower lungs. Pleural spaces: Unremarkable. No pneumothorax. No pleural effusion. Heart: Possible mitral valve calcifications. Coronary arteries: Coronary artery calcifications. Lymph nodes: Unremarkable. No enlarged lymph nodes. Pancreas: Risq-vv-wjtljyrn pancreatic atrophy. Bones/joints: Unremarkable. No acute fracture. Soft tissues: Small left flank hematoma. IMPRESSION: Evaluation of the pulmonary arteries is limited to the segmental arterial level due to poor bolus timing. Within the limitations of the study, no pulmonary emboli.
--- NOTE | 2023-09-13 20:08 | CT_ITS ---
PROCEDURE INFORMATION: Exam: CT Thoracic Spine Without Contrast Exam date and time: 09/13/2023 9:25 PM Age: 63 years old Clinical indication: Injury or trauma; Fall; Other: Pain; Additional info: Syncope, fall, pain TECHNIQUE: Imaging protocol: Computed tomography of the thoracic spine without contrast. Radiation optimization: All CT scans at this facility use at least one of these dose optimization techniques: automated exposure control; mA and/or kV adjustment per patient size (includes targeted exams where dose is matched to clinical indication); or iterative reconstruction. COMPARISON: CT CERVICAL SPINE WO CON 13/09/2023 21:23 FINDINGS: Bones/joints: T8 hemangioma. Soft tissues: Unremarkable. Other findings: Please see separate report for CT chest. IMPRESSION: No acute fracture or malalignment of the thoracic spine.
--- NOTE | 2023-09-13 20:08 | CT_ITS ---
PROCEDURE INFORMATION: Exam: CT Head Without Contrast Exam date and time: 09/13/2023 9:21 PM Age: 63 years old Clinical indication: Injury or trauma; Fall; Other: Syncope; Additional info: Syncope, fall, pain TECHNIQUE: Imaging protocol: Computed tomography of the head without contrast. Radiation optimization: All CT scans at this facility use at least one of these dose optimization techniques: automated exposure control; mA and/or kV adjustment per patient size (includes targeted exams where dose is matched to clinical indication); or iterative reconstruction. COMPARISON: CT HEAD/BRAIN WO CON 28/05/2023 15:06 FINDINGS: Brain: Chronic bilateral basal ganglia lacunar infarctions. Mild chronic brain volume loss and duzk-il-czjipkjn chronic small vessel ischemic changes. Cerebral ventricles: No ventriculomegaly. Paranasal sinuses: Visualized sinuses are unremarkable. No fluid levels. Mastoid air cells: Visualized mastoid air cells are well aerated. Orbital cavities: Status post bilateral cataract surgery. Bones: Unremarkable. No acute fracture. Soft tissues: Unremarkable. IMPRESSION: No acute intracranial findings.
--- NOTE | 2023-09-13 20:08 | CT_ITS ---
PROCEDURE INFORMATION: Exam: CT Cervical Spine Without Contrast Exam date and time: 09/13/2023 9:23 PM Age: 63 years old Clinical indication: Injury or trauma; Fall; Other: Pain; Additional info: Syncope, fall, pain TECHNIQUE: Imaging protocol: Computed tomography of the cervical spine without contrast. Radiation optimization: All CT scans at this facility use at least one of these dose optimization techniques: automated exposure control; mA and/or kV adjustment per patient size (includes targeted exams where dose is matched to clinical indication); or iterative reconstruction. COMPARISON: CT ANGIO NECK 23/04/2023 10:54 FINDINGS: Bones: Straightening of the curvature of the cervical spine is likely positional. Multilevel degenerative changes of the cervical spine producing multiple levels of mild spinal canal stenosis. Lungs: Lung apices are normal. Soft tissues: Unremarkable. IMPRESSION: No acute fracture or malalignment of the cervical spine.
--- NOTE | 2023-09-13 20:28 | ECG_ITS ---
APPROVED REPORT Exam: Resting ECG HR:80 bpm ECG Measurements Heart Rate 80 AXES OK 151 P 57 QRSd 89 QRS 59 QT 385 T 42 QTc 421 Conclusion SINUS RHYTHM POSSIBLE INFERIOR MYOCARDIAL INFARCTION , OF INDETERMINATE AGE [30 ms Q WAVE IN II/aVF] ABNORMAL ECG Electronically signed by : DOROTHY REZA, 09/14/2023 00:35:29
[2023-09-13 20:31] VITALS: BP 154/120; PULSE 85; O2SAT 97
[2023-09-13 20:32] LABS: Microscopic, Urine URINE MICROSCOPIC (MICROSCOPIC)
[2023-09-13 20:35] LABS: Appearance,Urine CLEAR (Clear); Bilirubin,Urine Negative (Negative); Blood, Urine Negative (Negative); Color,Urine YELLOW (Yellow); Glucose,Urine (UA) 3+ (Negative); Ketones,Urine Negative (Negative); Leukocyte Esterase,Urine Negative (Negative); Nitrate,Urine Negative (Negative); PH,Urine 5.5 (5.0-8.5); Protein,Urine Negative (Negative); Specific Gravity, Urine <= 1.005 (1.005-1.030); Urobilinogen,Urine 0.2 EU/dl (0.2)
[2023-09-13 20:45] LABS: Squamous Epithelial Cell,Urine Occasional #/hpf (0-5); WBC,Urine Occasional #/hpf (0-3)
[2023-09-13 20:50] LABS: Basophils # 0.1 K/mm3 (0-0.2); Eosinophils # 0.1 K/mm3 (0.0-0.4); Hematocrit 39.2 % (42.0-52.0); Hemoglobin 12.9 g/dL (14.1-18.0); Lymphocytes # 1.9 K/mm3 (0.7-4.5); Lymphocytes % 29.3 % (10-50); Mean Corpuscular HGB Conc 32.9 g/dL (31.8-35.4); Mean Corpuscular Hemoglobin 27.6 pg (27.0-31.2); Mean Corpuscular Volume 83.9 fl (80-94); Mean Platelet Volume 8.3 fl (7.4-10.4); Monocytes # 0.4 K/mm3 (0.1-1.0); Neutrophils # 3.9 K/mm3 (1.8-7.8); Neutrophils % 61.7 % (37.0-80.0); Platelet Count 258 K/mm3 (142-424); Red Blood Count 4.68 M/mm3 (4.60-6.20); Red Cell Distribution Width 14.5 % (11.5-17.5); White Blood Count 6.3 K/mm3 (4.8-10.8)
[2023-09-13 20:56] LABS: Chloride 99 mmol/L (98-107); Sodium 133 mmol/L (136-145)
[2023-09-13 20:57] LABS: Potassium 3.9 mmoL/L (3.5-5.1)
[2023-09-13 20:59] LABS: Alanine Aminotransferase 29 U/L (12-78); Albumin Level 3.9 g/dl (3.5-5.0); Albumin/Globulin Ratio 1.6 (1.1-1.8); Alkaline Phosphatase 59 U/L (38-126); Anion Gap 12.9 mEq/L (5-15); Aspartate Amino Transferase 27 U/L (17-59); Bilirubin,Total 0.8 mg/dl (0.2-1.3); Blood Urea Nitrogen 16 mg/dl (9-20); Carbon Dioxide 25 mmol/L (22.0-30.0); Creatinine Clearance Estimated 78 mL/min (50-200); Estimated Glomerular Filt Rate 68 ml/min (>60); GFR (African American) 82 ML/MIN (>60); Globulin 2.4 g/dL (1.3-3.2); Total Protein,Serum 6.3 g/dl (6.3-8.2)
[2023-09-13 21:00] LABS: Calcium 9.4 mg/dl (8.4-10.2)
[2023-09-13 21:02] LABS: Glucose 505 mg/dl (74-100)
[2023-09-13 21:12] LABS: Troponin I < 0.01 ng/ml (0.00-0.034)
--- NOTE | 2023-09-13 21:20 | PC.NURSE ---
Patient to radiology.
[2023-09-13] MEDS: 0.9 % SODIUM CHLORIDE 50 ML VIAL IV (21:37)
[2023-09-13] MEDS: SODIUM CHLORIDE 0.9% 10ML SYR (RAD ONLY) 10 ML IV (21:37)
[2023-09-13] MEDS: IOPAMIDOL-370 (76%);100ML BOTTLE 70 ML IV (21:37)
--- NOTE | 2023-09-13 22:00 | PC.NURSE ---
Patient has been pacing hallway, states that he's been here long enough and that he's got groceries in the car and can't stay any longer. Spouse who is guardian is at bedside and reports that he's going to go off and that she feels that it's in everyone's best interested to take him home and have him follow up with his primary provider. Updated patient and spouse about current blood glucose levels, and that scans have not came back at this time. Removed patient's PIVL at this time. Patient and spouse verbalize understanding of leaving against medical advice and the risks associated with it at this time up to including deterioriation, further injury or . Spouse agrees and signs AMA paperwork at this time. Updated Dr. Allen. Patient ambulated from the emergency department without difficulty or assistance.
[2023-09-13 22:08] VITALS: BP 152/84; PULSE 87; RESP 18; TEMP 36.7; O2SAT 97
== END 2023-09-13 22:08 | disposition left against medical advice (07) ==
PROVIDERS: Emergency Provider Emergency Medicine; PCP Family Medicine
DX: R55 Syncope and collapse (principal); E11.65 Type 2 diabetes mellitus with hyperglycemia; E87.1 Hypo-osmolality and hyponatremia; I10 Essential (primary) hypertension; F01.50 Vascular dementia, unspecified severity, without behavioral disturbance, psychotic disturbance, mood disturbance, and anxiety; M25.512 Pain in left shoulder; Z79.4 Long term (current) use of insulin; Z79.84 Long term (current) use of oral hypoglycemic drugs; W19.XXXA Unspecified fall, initial encounter
CPT/HCPCS: 70450; 71275; 72125; 72128; 73030; 80053; 81001; 84484; 85025; 93005; 96374; 99285; Q9967

== ENCOUNTER 2023-10-07 16:06 | Outpatient (CLI) | payer MEDICARE, SELFPAY ==
[2023-10-07 15:44] LABS: Microscopic, Urine URINE MICROSCOPIC (MICROSCOPIC)
[2023-10-07 16:48] LABS: Appearance,Urine CLEAR (Clear); Bilirubin,Urine Negative (Negative); Blood, Urine Negative (Negative); Color,Urine YELLOW (Yellow); Glucose,Urine (UA) Negative (Negative); Ketones,Urine Negative (Negative); Leukocyte Esterase,Urine TRACE (Negative); Nitrate,Urine Negative (Negative); PH,Urine 5.5 (5.0-8.5); Protein,Urine Negative (Negative); Specific Gravity, Urine 1.015 (1.005-1.030); Urobilinogen,Urine 0.2 EU/dl (0.2)
[2023-10-07 17:06] LABS: Bacteria,Urine Trace /lpf
== END 2023-10-07 23:59 | disposition home or self-care (01) ==
LOC: LAB.DROPOF 16:07
PROVIDERS: PCP Urology; Visit Provider Urology
DX: R33.9 Retention of urine, unspecified (principal)
CPT/HCPCS: 81001; 87086

== ENCOUNTER 2023-10-11 13:42 | Outpatient (CLI) | payer MEDICARE, SELFPAY ==
--- NOTE | 2023-10-11 13:47 | US_ITS ---
FINAL REPORT CLINICAL HISTORY: Post void residual FINDINGS: Limited sonographic images of the bladder were obtained. The bladder filled is 236 mL. Postvoid volume is 87 mL. IMPRESSION: Moderate amount of postvoid residual. Reviewed, Interpreted and Dictated by Kel Gerardo III, MD Transcribed by Kathy Ojeda Authenticated and [facility]
== END 2023-10-11 23:59 | disposition home or self-care (01) ==
LOC: RAD 13:43
PROVIDERS: PCP Family Medicine; Visit Provider Urology
DX: R33.9 Retention of urine, unspecified (principal)
CPT/HCPCS: 76857

== ENCOUNTER 2023-10-15 18:00 | Outpatient (CLI) | payer MEDICARE, SELFPAY ==
[2023-10-15 16:43] LABS: Basophils # 0.1 K/mm3 (0-0.2); Basophils % 0.8 % (0.1-2.0); Eosinophils # 0.3 K/mm3 (0.0-0.4); Eosinophils % 3.2 % (0.1-12.0); Hematocrit 45.4 % (42.0-52.0); Hemoglobin 14.8 g/dL (14.1-18.0); Lymphocytes # 2.5 K/mm3 (0.7-4.5); Mean Corpuscular HGB Conc 32.5 g/dL (31.8-35.4); Mean Corpuscular Hemoglobin 27.2 pg (27.0-31.2); Mean Corpuscular Volume 83.7 fl (80-94); Mean Platelet Volume 8.7 fl (7.4-10.4); Monocytes # 0.6 K/mm3 (0.1-1.0); Monocytes % 6.4 % (1.7-9.3); Neutrophils # 5.5 K/mm3 (1.8-7.8); Neutrophils % 61.6 % (37.0-80.0); Platelet Count 297 K/mm3 (142-424); Red Blood Count 5.43 M/mm3 (4.60-6.20); Red Cell Distribution Width 14.7 % (11.5-17.5)
[2023-10-15 18:04] LABS: Alanine Aminotransferase 21 U/L (12-78); Albumin Level 4.2 g/dl (3.5-5.0); Albumin/Globulin Ratio 1.8 (1.1-1.8); Alkaline Phosphatase 74 U/L (38-126); Anion Gap 12.8 mEq/L (5-15); Aspartate Amino Transferase 24 U/L (17-59); Bilirubin,Total 0.6 mg/dl (0.2-1.3); Blood Urea Nitrogen 18 mg/dl (9-20); Calcium 10.6 mg/dl (8.4-10.2); Carbon Dioxide 30 mmol/L (22.0-30.0); Chloride 103 mmol/L (98-107); Chol/HDL Ratio 3.9 (1-3.5); Cholesterol 140 mg/dl (140-200); Estimated Glomerular Filt Rate 61 ml/min (>60); GFR (African American) 74 ML/MIN (>60); Globulin 2.4 g/dL (1.3-3.2); Glucose 63 mg/dl (74-100); HDL Cholesterol 36 mg/dl (40-60); Potassium 4.8 mmoL/L (3.5-5.1); Sodium 141 mmol/L (136-145); Total Protein,Serum 6.6 g/dl (6.3-8.2); Triglycerides 131 mg/dl (30-150); VLDL Cholesterol 26 mg/dL (0-40)
[2023-10-15 18:14] LABS: Direct LDL Cholesterol 76.37 mg/dL (100-129)
[2023-10-15 18:37] LABS: Thyroid Stimulating Hormone 3.29 uIU/mL (0.465-4.68)
[2023-10-15 18:46] LABS: Hemoglobin A1C 8.9 % (4.0-6.0)
[2023-10-16 14:11] LABS: HIV (1&2) Antibody Rapid NONREACTIVE
[2023-10-17 06:12] LABS: HCV Ab Non Reactive (Non Reactive)
== END 2023-10-15 23:59 | disposition home or self-care (01) ==
LOC: LAB.DROPOF 10-16 08:21
PROVIDERS: PCP Family Medicine; Visit Provider Family Medicine
DX: I10 Essential (primary) hypertension (principal); E11.9 Type 2 diabetes mellitus without complications; Z11.59 Encounter for screening for other viral diseases; Z79.4 Long term (current) use of insulin; Z79.84 Long term (current) use of oral hypoglycemic drugs
CPT/HCPCS: 80050; 80053; 80061; 83036; 84443; 85025

== ENCOUNTER 2023-12-03 15:49 | Outpatient (CLI) | payer MEDICARE, SELFPAY ==
--- NOTE | 2023-12-03 15:56 | MR_ITS ---
PROCEDURE INFORMATION: Exam: MR Lumbar Spine Without Contrast Exam date and time: 12/03/2023 4:13 PM Age: 63 years old Clinical indication: Low back pain; Additional info: Urine and bowel incontinence TECHNIQUE: Imaging protocol: Magnetic resonance imaging of the lumbar spine without contrast. COMPARISON: CT THORACIC SPINE WO CON 09/13/2023 9:25 PM FINDINGS: Bones/joints: There is transitional anatomy present with lumbarization of the S1 vertebrae. The designation of L5-S1 was made by the lumbosacral angle and iliolumbar ligament. The vertebral body heights are maintained. No fracture. No suspicious marrow signal. Spinal cord: Visualized cord, conus medullaris and cauda equina are unremarkable. L1-L2: diffuse disc bulging is present without significant stenosis of the spinal canal. Patent neural foramina. L2-L3: No significant disc bulge or herniation. No severe spinal canal stenosis. No significant neural foraminal narrowing. L3-L4: There is minimal saddle shaped disc bulging present without spinal canal stenosis. Bilateral facet arthrosis is seen with severe narrowing of both neural foramen. L4-L5: There is minimal saddle shaped disc bulging present without spinal canal stenosis. Degenerative facet arthrosis with bilateral facet effusions. Moderate bilateral neural foraminal stenosis. L5-S1: diffuse disc bulging and degenerative facet arthrosis is present without significant stenosis of the spinal canal. Mild right neural foraminal stenosis. Soft tissues: There is nonspecific subcutaneous soft tissue edema in the patient's back. IMPRESSION: Degenerative disc disease without significant spinal canal stenosis, as described. There is severe narrowing of both neural foramina at L3-L4.
== END 2023-12-03 23:59 | disposition home or self-care (01) ==
LOC: RAD 15:51
PROVIDERS: PCP Family Medicine; Visit Provider Family Medicine
DX: G83.4 Cauda equina syndrome (principal); M54.50 Low back pain, unspecified
CPT/HCPCS: 72148

== ENCOUNTER 2023-12-24 08:55 | Outpatient (CLI) | payer MEDICARE, SELFPAY ==
--- NOTE | 2023-12-24 09:02 | XR_ITS ---
FINAL REPORT CLINICAL HISTORY: left wrist swollen COMPARISON: 11/04/2019 FINDINGS: LEFT WRIST 4 views demonstrate no acute fracture or dislocation. There are mild hypertrophic changes at the basilar joint. The soft tissues are unremarkable. IMPRESSION: Mild hypertrophic changes without acute bony abnormality. Reviewed, Interpreted and Dictated by Williams Del Toro MD Transcribed by Raya Brizuela Authenticated and [facility]
== END 2023-12-24 23:59 | disposition home or self-care (01) ==
LOC: RAD 08:58
PROVIDERS: PCP Family Medicine; Visit Provider Family Medicine
DX: M25.532 Pain in left wrist (principal)
CPT/HCPCS: 73110

== ENCOUNTER 2023-12-26 14:58 | Outpatient (CLI) | payer MEDICARE, SELFPAY ==
[2023-12-26 15:39] LABS: Basophils # 0.1 K/mm3 (0-0.2); Basophils % 0.7 % (0.1-2.0); Eosinophils # 0.2 K/mm3 (0.0-0.4); Eosinophils % 1.9 % (0.1-12.0); Hematocrit 43.1 % (42.0-52.0); Hemoglobin 13.6 g/dL (14.1-18.0); Lymphocytes # 2.1 K/mm3 (0.7-4.5); Lymphocytes % 24.2 % (10-50); Mean Corpuscular HGB Conc 31.7 g/dL (31.8-35.4); Mean Corpuscular Hemoglobin 26.9 pg (27.0-31.2); Mean Corpuscular Volume 84.8 fl (80-94); Mean Platelet Volume 8.1 fl (7.4-10.4); Monocytes # 0.6 K/mm3 (0.1-1.0); Monocytes % 6.6 % (1.7-9.3); Neutrophils # 5.8 K/mm3 (1.8-7.8); Neutrophils % 66.6 % (37.0-80.0); Platelet Count 383 K/mm3 (142-424); Red Blood Count 5.08 M/mm3 (4.60-6.20); Red Cell Distribution Width 14.6 % (11.5-17.5); White Blood Count 8.7 K/mm3 (4.8-10.8)
[2023-12-26 15:56] LABS: Uric Acid 3.9 mg/dl (3.5-8.5)
[2023-12-26 16:03] LABS: C-Reactive Protein 85.5 mg/L (0-4)
[2023-12-26 16:19] LABS: Erythrocyte Sedimentation Rate 34 mm/hr (0-20)
== END 2023-12-26 23:59 | disposition home or self-care (01) ==
LOC: LAB 14:59
PROVIDERS: PCP Family Medicine; Visit Provider Orthopaedic Surgery
DX: M79.89 Other specified soft tissue disorders (principal)
CPT/HCPCS: 36415; 84550; 85025; 85651; 86140